=== PATIENT | male | born 1950 | race Caucasian/White ===

== ENCOUNTER 2016-06-30 12:04 | Inpatient (IN) | payer MEDICARE, BC ==
--- NOTE | 2016-06-30 12:42 | ED ---
General Adult HPI - General Chief complaint: Neuro Symptoms/Deficit Stated complaint: sepsis Time Seen by Provider: 06/30/16 12:11 Source: patient, EMS, RN notes reviewed Mode of arrival: EMS Limitations: altered mental status, physical limitation - History of Present Illness Initial comments: Patient is a pleasant 66-year-old male presenting to the emergency department for lethargy. Patient is arousable however drowsy and offers very little information. Patient reportedly had a recent admission for sepsis. Patient has no specific complaints at this time. - Related Data Home Medications Medication Instructions Recorded Confirmed ALPRAZolam [Xanax] 0.25 mg PO Q6H PRN 06/12/16 06/30/16 ARIPiprazole [Abilify] 30 mg PO HS@199906/12/16 06/30/16 Acetaminophen Tab [Tylenol] 1,000 mg PO Q4H PRN 06/12/16 06/30/16 Aspirin 81 mg PO HS 06/12/16 06/30/16 Atorvastatin [Lipitor] 10 mg PO HS@199906/12/16 06/30/16 Baclofen 10 mg PO TID@0500,1300,2100 06/12/16 06/30/16 Budesonide [Pulmicort] 0.5 mg INHALATION RT-BID 06/12/16 06/30/16 Enoxaparin [Lovenox] 40 mg SQ DAILY 06/12/16 06/30/16 Gabapentin 800 mg PO TID@0500,1300,2100 06/12/16 06/30/16 Glucagon Emergency Kit 1 mg IM ONCE PRN 06/12/16 06/30/16 Gluctose 15 Gel 40% 1 tube PO ONCE PRN 06/12/16 06/30/16 Insulin Aspart [NovoLOG] 8 unit SQ AC-TID 06/12/16 06/30/16 Insulin Detemir [Levemir] 36 unit SQ BID@0700,1900 06/12/16 06/30/16 Ipratropium-Albuterol Nebulize 3 ml INHALATION RT-BID 06/12/16 06/30/16 [Duoneb 0.5 mg-3 mg/3 ml Soln] Lisinopril [Zestril] 20 mg PO DAILY 06/12/16 06/30/16 Nystatin [Nystop] 1 applic TOPICAL BID 06/12/16 06/30/16 amLODIPine [Norvasc] 5 mg PO BID 06/12/16 06/30/16 buPROPion HCL [Wellbutrin SR] 100 mg PO DAILY 06/12/16 06/30/16 risperiDONE 4 mg PO HS@199906/12/16 06/30/16 Carvedilol [Coreg] 6.25 mg PO BID 06/30/16 06/30/16 HYDROcodone/APAP 5-325MG [[place] 1 tab PO Q6H PRN 06/30/16 06/30/16 5-325] Meropenem [Merrem] 1 gm IVPB TID@0500,1300,2100 06/30/16 06/30/16 Sennosides-Docusate Sodium 1 tab PO HS@199906/30/16 06/30/16 [Senokot-S] Allergies Allergy/AdvReac Type Severity Reaction Status Date / Time Penicillins Allergy Rash/Hives Verified 06/30/16 13:21 ziprasidone [From Geodon] AdvReac Unknown Verified 06/30/16 13:21 Review of Systems ROS Statement: Those systems with pertinent positive or pertinent negative responses have been documented in the HPI. ROS Other: All systems not noted in ROS Statement are negative. Limitations: ROS unobtainable due to patients medical condition Past Medical History Past Medical History: COPD, Diabetes Mellitus, Hypertension, Sleep Apnea/CPAP/ BIPAP Additional Past Medical History / Comment(s): acute and chronic respiratory failure, obesity, Paraplegia, generalized muscle weakness, IDC/urostomy, colostomy, no cpap required, History of Any Multi-Drug Resistant Organisms: MRSA Date of last positivie culture/infection: 2015 MDRO Source:: coccyx Past Surgical History: Back Surgery, Bowel Resection, Heart Catheterization, Tonsillectomy Additional Past Surgical History / Comment(s): Tracheostomy 2017, 6 back surgeries, PEG tube(not being used at this time), heart cath with stent-unsure of year Past Anesthesia/Blood Transfusion Reactions: No Reported Reaction Past Psychological History: Bipolar, Schizoaffective Disorder Smoking Status: Never smoker Past Alcohol Use History: None Reported Past Drug Use History: None Reported General Exam Limitations: altered mental status, physical limitation General appearance: lethargic, obese Head exam: Present: atraumatic Pupils: Present: miosis ENT exam: Present: normal oropharynx Neck exam: Present: normal inspection Respiratory exam: Present: normal lung sounds bilaterally Cardiovascular Exam: Present: regular rate, normal rhythm GI/Abdominal exam: Present: soft. Absent: tenderness Extremities exam: Present: pedal edema. Absent: calf tenderness Neurological exam: Present: altered (Drowsy. Difficulty following commands. Limited exam.) Expanded Patient oriented to: Present: person Psychiatric exam: Present: flat affect Skin exam: Present: other (Stage III/IV multiple sacral ulcers) Course Vital Signs 06/30/16 06/30/16 06/30/16 12:09 13:41 14:40 Temperature 99.3 F 98.5 F 97.8 F Pulse Rate 72 69 63 Respiratory 22 12 22 Rate Blood Pressure 112/57 126/60 107/53 O2 Sat by Pulse 95 94 L 94 L Oximetry 06/30/16 15:06 Temperature Pulse Rate 62 Respiratory 20 Rate Blood Pressure 114/56 O2 Sat by Pulse 95 Oximetry EKG Findings - EKG Comments: EKG Findings:: Normal sinus rhythm 69. OH 174. QRS 82. QT 338. QTC 362. Normal axis. Normal QRS. Normal ST-T. Medical Decision Making - Medical Decision Making Patient reevaluated and slightly improved. Etiology of altered mental status is not apparent at this time. ABG will be ordered. Case was discussed with Dr. Hagen, who will admit for Dr. Bowen. - Lab Data Result diagrams: 06/30/16 12:45 06/30/16 12:45 Lab Results 06/30/16 06/30/16 06/30/16 Range/Units 12:33 12:45 12:45 WBC 7.4 (3.8-10.6) k/uL RBC 3.35 L (4.30-5.90) m/uL Hgb 8.8 L (13.0-17.5) gm/dL Hct 30.3 L (39.0-53.0) % MCV 90.5 (80.0-100.0) fL MCH 26.3 (25.0-35.0) pg MCHC 29.0 L (31.0-37.0) g/dL RDW 18.0 H (11.5-15.5) % Plt Count 480 H (150-450) k/uL Neutrophils % 54 % Lymphocytes % 30 % Monocytes % 7 % Eosinophils % 5 % Basophils % 0 % Neutrophils # 4.0 (1.3-7.7) k/uL Lymphocytes # 2.3 (1.0-4.8) k/uL Monocytes # 0.5 (0-1.0) k/uL Eosinophils # 0.4 (0-0.7) k/uL Basophils # 0.0 (0-0.2) k/uL Hypochromasia Marked Poikilocytosis Moderate Anisocytosis Slight PT (9.0-12.0) sec INR (<1.1) APTT (22.0-30.0) sec Sodium (137-145) mmol/L Potassium (3.5-5.1) mmol/L Chloride (98-107) mmol/L Carbon Dioxide (22-30) mmol/L Anion Gap mmol/L BUN (9-20) mg/dL Creatinine (0.66-1.25) mg/dL Est GFR (MDRD) Af Amer (>60 ml/min/1.73 sqM) Est GFR (MDRD) Non-Af (>60 ml/min/1.73 sqM) Glucose (74-99) mg/dL POC Glucose (mg/dL) (75-99) mg/dL POC Glu Senior Cytotechnologist ID Plasma Lactic Acid Tl (0.7-2.0) mmol/L Calcium (8.4-10.2) mg/dL Total Bilirubin (0.2-1.3) mg/dL AST (17-59) U/L ALT (21-72) U/L Alkaline Phosphatase (38-126) U/L Total Creatine Kinase <20 L (55-170) U/L CK-MB (CK-2) 0.4 (0.0-2.4) ng/mL CK-MB (CK-2) Rel Index 0.0 Troponin I <0.012 (0.000-0.034) ng/mL Total Protein (6.3-8.2) g/dL Albumin (3.5-5.0) g/dL Urine Color Light Yellow Urine Appearance Cloudy (Clear) Urine pH 5.5 (5.0-8.0) Ur Specific [place] 1.005 (1.001-1.035) Urine Protein Trace H (Negative) Urine Glucose (UA) Negative (Negative) Urine Ketones Negative (Negative) Urine Blood Trace H (Negative) Urine Nitrite Negative (Negative) Urine Bilirubin Negative (Negative) Urine Urobilinogen <2.0 (<2.0) mg/dL Ur Leukocyte Esterase Negative (Negative) Urine RBC 1 (0-5) /hpf Urine WBC 2 (0-5) /hpf Influenza Type A RNA (Not Detectd) Influenza Type B (PCR) (Not Detectd) 06/30/16 06/30/16 06/30/16 Range/Units 12:45 12:45 12:55 WBC (3.8-10.6) k/uL RBC (4.30-5.90) m/uL Hgb (13.0-17.5) gm/dL Hct (39.0-53.0) % MCV (80.0-100.0) fL MCH (25.0-35.0) pg MCHC (31.0-37.0) g/dL RDW (11.5-15.5) % Plt Count (150-450) k/uL Neutrophils % % Lymphocytes % % Monocytes % % Eosinophils % % Basophils % % Neutrophils # (1.3-7.7) k/uL Lymphocytes # (1.0-4.8) k/uL Monocytes # (0-1.0) k/uL Eosinophils # (0-0.7) k/uL Basophils # (0-0.2) k/uL Hypochromasia Poikilocytosis Anisocytosis PT 11.8 (9.0-12.0) sec INR 1.2 (<1.1) APTT 27.1 (22.0-30.0) sec Sodium 133 L (137-145) mmol/L Potassium 5.2 H (3.5-5.1) mmol/L Chloride 96 L (98-107) mmol/L Carbon Dioxide 34 H (22-30) mmol/L Anion Gap 3 mmol/L BUN 13 (9-20) mg/dL Creatinine 0.45 L (0.66-1.25) mg/dL Est GFR (MDRD) Af Amer >60 (>60 ml/min/1.73 sqM) Est GFR (MDRD) Non-Af >60 (>60 ml/min/1.73 sqM) Glucose 87 (74-99) mg/dL POC Glucose (mg/dL) (75-99) mg/dL POC Glu Senior Cytotechnologist ID Plasma Lactic Acid Tl <0.5 L (0.7-2.0) mmol/L Calcium 9.8 (8.4-10.2) mg/dL Total Bilirubin 0.3 (0.2-1.3) mg/dL AST 13 L (17-59) U/L ALT 32 (21-72) U/L Alkaline Phosphatase 56 (38-126) U/L Total Creatine Kinase (55-170) U/L CK-MB (CK-2) (0.0-2.4) ng/mL CK-MB (CK-2) Rel Index Troponin I (0.000-0.034) ng/mL Total Protein 5.4 L (6.3-8.2) g/dL Albumin 2.6 L (3.5-5.0) g/dL Urine Color Urine Appearance (Clear) Urine pH (5.0-8.0) Ur Specific [place] (1.001-1.035) Urine Protein (Negative) Urine Glucose (UA) (Negative) Urine Ketones (Negative) Urine Blood (Negative) Urine Nitrite (Negative) Urine Bilirubin (Negative) Urine Urobilinogen (<2.0) mg/dL Ur Leukocyte Esterase (Negative) Urine RBC (0-5) /hpf Urine WBC (0-5) /hpf Influenza Type A RNA (Not Detectd) Influenza Type B (PCR) (Not Detectd) 06/30/16 06/30/16 Range/Units 12:55 13:02 WBC (3.8-10.6) k/uL RBC (4.30-5.90) m/uL Hgb (13.0-17.5) gm/dL Hct (39.0-53.0) % MCV (80.0-100.0) fL MCH (25.0-35.0) pg MCHC (31.0-37.0) g/dL RDW (11.5-15.5) % Plt Count (150-450) k/uL Neutrophils % % Lymphocytes % % Monocytes % % Eosinophils % % Basophils % % Neutrophils # (1.3-7.7) k/uL Lymphocytes # (1.0-4.8) k/uL Monocytes # (0-1.0) k/uL Eosinophils # (0-0.7) k/uL Basophils # (0-0.2) k/uL Hypochromasia Poikilocytosis Anisocytosis PT (9.0-12.0) sec INR (<1.1) APTT (22.0-30.0) sec Sodium (137-145) mmol/L Potassium (3.5-5.1) mmol/L Chloride (98-107) mmol/L Carbon Dioxide (22-30) mmol/L Anion Gap mmol/L BUN (9-20) mg/dL Creatinine (0.66-1.25) mg/dL Est GFR (MDRD) Af Amer (>60 ml/min/1.73 sqM) Est GFR (MDRD) Non-Af (>60 ml/min/1.73 sqM) Glucose (74-99) mg/dL POC Glucose (mg/dL) 95 (75-99) mg/dL POC Glu Senior Cytotechnologist ID [place], [place] Plasma Lactic Acid Tl (0.7-2.0) mmol/L Calcium (8.4-10.2) mg/dL Total Bilirubin (0.2-1.3) mg/dL AST (17-59) U/L ALT (21-72) U/L Alkaline Phosphatase (38-126) U/L Total Creatine Kinase (55-170) U/L CK-MB (CK-2) (0.0-2.4) ng/mL CK-MB (CK-2) Rel Index Troponin I (0.000-0.034) ng/mL Total Protein (6.3-8.2) g/dL Albumin (3.5-5.0) g/dL Urine Color Urine Appearance (Clear) Urine pH (5.0-8.0) Ur Specific [place] (1.001-1.035) Urine Protein (Negative) Urine Glucose (UA) (Negative) Urine Ketones (Negative) Urine Blood (Negative) Urine Nitrite (Negative) Urine Bilirubin (Negative) Urine Urobilinogen (<2.0) mg/dL Ur Leukocyte Esterase (Negative) Urine RBC (0-5) /hpf Urine WBC (0-5) /hpf Influenza Type A RNA Not Detected (Not Detectd) Influenza Type B (PCR) Not Detected (Not Detectd) - Radiology Data Radiology results: report reviewed (Computed tomography scan of the brain shows no acute process.), image reviewed (Chest x-ray shows possible atelectasis. X- ray of the sacrum shows suspicion of erosion. Nondiagnostic. X-ray of the pelvis shows chronic changes.) Disposition Clinical Impression: Altered mental status Disposition: ADMITTED IP TO THIS HOSP
[2016-06-30 12:58] LABS: Appearance,Urine Cloudy (Clear); Bilirubin,Urine Negative (Negative); Glucose,Urine (UA) Negative (Negative); Ketones,Urine Negative (Negative); Leukocyte Esterase,Urine Negative (Negative); Nitrite,Urine Negative (Negative); PH, Urine 5.5 (5.0-8.0); Particle Count 1053; Protein,Urine Trace (Negative); RBC,Urine 1 /hpf (0-5); Specific Gravity,Urine 1.005 (1.001-1.035); UA Billing (MACRO vs. MICRO) MICRO; Urobilinogen,Urine <2.0 mg/dL (<2.0); WBC,Urine 2 /hpf (0-5)
[2016-06-30 12:58] LABS: Anisocytosis Slight; Basophils % (A) 0 %; CH 26.8; CHCM 29.7; Eosinophils # (A) 0.4 k/uL (0-0.7); Eosinophils % (A) 5 %; HCT 30.3 % (39.0-53.0); HGB 8.8 gm/dL (13.0-17.5); Hypochromasia Marked; Luc # (Auto) 0.24; Luc % (Auto) 3; Lymphocytes # (A) 2.3 k/uL (1.0-4.8); Lymphocytes % (A) 30 %; MCH 26.3 pg (25.0-35.0); MCV 90.5 fL (80.0-100.0); Monocytes # (A) 0.5 k/uL (0-1.0); Monocytes % (A) 7 %; Neutrophils % (A) 54 %; Poikilocytosis Moderate; RBC 3.35 m/uL (4.30-5.90); WBC 7.4 k/uL (3.8-10.6); WBC (Perox) 7.65
[2016-06-30 13:03] LABS: Glucose,Whole Blood 95 mg/dL (75-99)
[2016-06-30 13:07] LABS: ALT 32 U/L (21-72); AST 13 U/L (17-59); Alkaline Phosphatase 56 U/L (38-126); Anion Gap 3 mmol/L; Blood Urea Nitrogen 13 mg/dL (9-20); Calcium 9.8 mg/dL (8.4-10.2); Carbon Dioxide 34 mmol/L (22-30); Chloride 96 mmol/L (98-107); Glucose 87 mg/dL (74-99); INR 1.2 (<1.1); Non-African American GFR(MDRD) >60 (>60 ml/min/1.73 sqM); Partial Thromboplastin Time 27.1 sec (22.0-30.0); Potassium 5.2 mmol/L (3.5-5.1); Prothrombin Time 11.8 sec (9.0-12.0); Sodium 133 mmol/L (137-145); Total Bilirubin 0.3 mg/dL (0.2-1.3); Total Protein 5.4 g/dL (6.3-8.2)
[2016-06-30 13:16] LABS: Creatine Kinase <20 U/L (55-170)
--- NOTE | 2016-06-30 13:24 | CT ---
EXAMINATION TYPE: CT brain wo con DATE OF EXAM: 06/30/2016 1:19 PM COMPARISON: NONE HISTORY: 66-year-old male with altered mental status, confusion, unresponsive, unable to obtain histo ry. TECHNIQUE: Examination was done in axial plane without intravenous contrast. Coronal and sagittal r econstructions performed. CT DLP: 1162.8 mGycm Automated exposure control for dose reduction was used. FINDINGS: There is no evidence of acute intracranial hemorrhage, acute ischemic changes, mass, mass-effect, or extra-axial fluid collection. There is no effacement of cerebral sulci or basal subarachnoid cister ns. There is no hydrocephalus. There is no midline shift. Carranza-white matter distinction is preserv ed. Moderate mucosal thickening ethmoid air cells and sphenoid sinuses and chronic appearing bony sinus w all thickening of the right maxillary sinus with trace mucosal thickening. Mastoid air cells are well pneumatized. Patient's gaze is divergent suggesting underlying strabismus. There is a 1.0 cm round l ow density nodule located deep to the skin surface along the right cheek. IMPRESSION: 1. No acute intracranial abnormality seen. 2. Moderate chronic paranasal sinus disease. 3. Correlate for possible 1 cm sebaceous cyst along the right cheek.
[2016-06-30 13:29] LABS: Creatine Kinase MB 0.4 ng/mL (0.0-2.4); Troponin I <0.012 ng/mL (0.000-0.034)
--- NOTE | 2016-06-30 14:40 | XR ---
EXAMINATION TYPE: XR pelvis AP view DATE OF EXAM: 06/30/2016 1:43 PM COMPARISON: NONE HISTORY: Chronic bedsores TECHNIQUE: AP pelvis FINDINGS: Fecal debris is within the rectum. Postsurgical changes are within the lower lumbar spine. Degenerative changes are at the left hip. Suspicious erosion of the pelvis is not identified. Note th at the sacrum is largely obscured in the AP projection. IMPRESSION: 1. Chronic changes.
--- NOTE | 2016-06-30 14:43 | XR ---
EXAMINATION TYPE: XR sacrum coccyx DATE OF EXAM: 06/30/2016 1:43 PM COMPARISON: NONE HISTORY: Osteomyelitis chronic bedsores on buttocks TECHNIQUE: 2 view sacrum and coccyx FINDINGS: Fecal debris overlies the lower sacrum on the AP projection. The lower sacrum is poorly vis ualized and osteomyelitis is not excluded. Lateral views nondiagnostic excluding the sacrum out of th e [id number]. IMPRESSION: 1. Essentially nondiagnostic sacrum and coccyx. There is a suspicion of the lower sacrum having eros ion. Consider CT for diagnostic exam.
--- NOTE | 2016-06-30 14:59 | XR ---
EXAMINATION TYPE: XR chest 1V portable DATE OF EXAM: 06/30/2016 2:54 PM COMPARISON: 06/12/2016 INDICATION: Acute mental status change, sepsis TECHNIQUE: Single frontal view of the chest is obtained. FINDINGS: The heart size is borderline in size. The pulmonary vasculature is normal. The lungs are clear. There is elevation of the lateral right diaphragm. Correlate for atelectasis IMPRESSION: 1. Possible atelectasis right lung base. Follow-up is recommended
[2016-06-30] MEDS ORDERED: NALOXONE 0.4 MG/ML 1 ML VIAL IV PRN (15:36)
[2016-06-30] MEDS: SODIUM CHLORIDE 0.9% 1,000 ML IV SCH (15:52)
[2016-06-30 16:46] LABS: ABG PCO2 75 mmHg (35-45); ABG PH 7.27 (7.35-7.45); ABG PO2 98 mmHg (83-108)
[2016-06-30 16:48] LABS: ABG Base Excess 6.3 mmol/L; ABG HCO3 33 mmol/L (21-25); ABG TCO2 35 mmol/L (19-24)
[2016-06-30] MEDS ORDERED: methylPREDNISolone SOD SUCCI 125 MG/2 ML VIAL IV STA (16:55)
[2016-06-30] MEDS ORDERED: IPRATROPIUM-ALBUTEROL 3 ML NEB INHALATION PRN (16:55)
[2016-06-30 19:52] LABS: Creatine Kinase <20 U/L (55-170)
[2016-06-30 20:05] LABS: Creatine Kinase MB 0.5 ng/mL (0.0-2.4); Troponin I <0.012 ng/mL (0.000-0.034)
[2016-06-30] MEDS ORDERED: VANCOMYCIN 1,500 MG in SODIUM CHLORIDE 0.9% 250 ML IVPB SCH (20:15)
[2016-06-30] MEDS ORDERED: HYDROcodone/APAP 5-325MG 1 EACH TAB PO PRN (20:15)
[2016-06-30] MEDS ORDERED: IV VANCOMYCIN PER PHARMACY 1 EACH MISC MISCELLANE PRN (20:15)
[2016-06-30] MEDS ORDERED: ACETAMINOPHEN TAB 500 MG TAB PO PRN (20:15)
[2016-06-30] MEDS: IPRATROPIUM-ALBUTEROL 3 ML NEB INHALATION SCH (20:23)
[2016-06-30 20:55] LABS: Glucose,Whole Blood 59 mg/dL (75-99)
[2016-06-30] MEDS ORDERED: DEXTROSE 50%-WATER 50 ML SYRINGE IVP ONE (20:56)
[2016-06-30 21:15] LABS: Anion Gap 2 mmol/L; Blood Urea Nitrogen 12 mg/dL (9-20); Calcium 9.8 mg/dL (8.4-10.2); Carbon Dioxide 37 mmol/L (22-30); Chloride 96 mmol/L (98-107); Glucose 64 mg/dL (74-99); Magnesium 1.8 mg/dL (1.6-2.3); Non-African American GFR(MDRD) >60 (>60 ml/min/1.73 sqM); Phosphorous 3.5 mg/dL (2.5-4.5); Potassium 5.4 mmol/L (3.5-5.1); Sodium 135 mmol/L (137-145)
[2016-06-30 21:15] LABS: Glucose,Whole Blood 94 mg/dL (75-99)
[2016-06-30] MEDS: INSULIN LISPRO (humaLOG) 300 UNIT/3 ML VIAL SQ SCH (21:19)
[2016-06-30] MEDS: VANCOMYCIN 2,000 MG in SODIUM CHLORIDE 0.9% 500 ML IVPB SCH (21:27)
[2016-06-30 21:37] LABS: ABG Base Excess 5.7 mmol/L; ABG HCO3 31 mmol/L (21-25); ABG Oxygen Saturation 96.8 % (94-97); ABG PCO2 58 mmHg (35-45); ABG PH 7.35 (7.35-7.45); ABG PO2 96 mmHg (83-108); ABG TCO2 33 mmol/L (19-24)
[2016-06-30] MEDS: BACLOFEN 10 MG TAB PO SCH (22:54)
[2016-06-30] MEDS: ASPIRIN 81 MG CHEW PO SCH (22:54)
[2016-06-30] MEDS: CARVEDILOL 6.25 MG TAB PO SCH (22:54)
[2016-06-30] MEDS: amLODIPine 5 MG TAB PO SCH (22:54)
[2016-06-30] MEDS: GABAPENTIN 400 MG CAP PO SCH (22:54)
[2016-06-30 23:08] LABS: Anisocytosis Slight; Basophils % (A) 0 %; CHCM 29.2; Eosinophils # (A) 0.1 k/uL (0-0.7); Eosinophils % (A) 2 %; HCT 29.7 % (39.0-53.0); HDW 4.43; Hypochromasia Marked; Luc # (Auto) 0.07; Luc % (Auto) 1; Lymphocytes # (A) 1.2 k/uL (1.0-4.8); Lymphocytes % (A) 18 %; MCHC 30.3 g/dL (31.0-37.0); MCV 89.2 fL (80.0-100.0); Mean Platelet Volume 8.1; Monocytes # (A) 0.2 k/uL (0-1.0); Monocytes % (A) 3 %; Neutrophils # (A) 5.1 k/uL (1.3-7.7); Neutrophils % (A) 76 %; Poikilocytosis Moderate; RBC 3.33 m/uL (4.30-5.90); RDW 17.2 % (11.5-15.5); WBC 6.7 k/uL (3.8-10.6); WBC (Perox) 6.84
[2016-06-30] MEDS: methylPREDNISolone SOD SUCCI 125 MG/2 ML VIAL IV SCH (23:10)
[2016-06-30] MEDS: NYSTATIN 100,000 UNIT/GM POWD 15 GM TOPICAL SCH (23:10)
[2016-07-01] LABS: Creatine Kinase <20 U/L (55-170)
[2016-07-01 00:13] LABS: Creatine Kinase MB 0.5 ng/mL (0.0-2.4); Troponin I <0.012 ng/mL (0.000-0.034)
[2016-07-01] MEDS: MORPHINE SULFATE 2 MG/ML SYRINGE IVP PRN ×5 (02:47→13:16)
[2016-07-01] MEDS: GABAPENTIN 400 MG CAP PO SCH ×3 (05:00→20:53)
[2016-07-01] MEDS: BACLOFEN 10 MG TAB PO SCH ×3 (05:00→20:53)
[2016-07-01] MEDS: methylPREDNISolone SOD SUCCI 125 MG/2 ML VIAL IV SCH ×2 (05:00→12:19)
[2016-07-01] MEDS: VANCOMYCIN 2,000 MG in SODIUM CHLORIDE 0.9% 500 ML IVPB SCH ×3 (05:01→20:58)
[2016-07-01 06:23] LABS: Anisocytosis Slight; Basophils % (A) 0 %; CH 26.3; CHCM 29.7; Eosinophils % (A) 0 %; HCT 30.6 % (39.0-53.0); HDW 4.47; HGB 9.1 gm/dL (13.0-17.5); Hypochromasia Marked; Luc # (Auto) 0.05; Luc % (Auto) 1; Lymphocytes # (A) 1.1 k/uL (1.0-4.8); Lymphocytes % (A) 17 %; MCH 26.5 pg (25.0-35.0); MCHC 29.9 g/dL (31.0-37.0); MCV 88.8 fL (80.0-100.0); Mean Platelet Volume 7.6; Monocytes # (A) 0.1 k/uL (0-1.0); Monocytes % (A) 2 %; Neutrophils % (A) 80 %; Poikilocytosis Moderate; RBC 3.45 m/uL (4.30-5.90); RDW 17.3 % (11.5-15.5); WBC 6.3 k/uL (3.8-10.6); WBC (Perox) 6.58
[2016-07-01 06:29] LABS: Glucose,Whole Blood 137 mg/dL (75-99)
[2016-07-01 06:29] LABS: Anion Gap 6 mmol/L; Blood Urea Nitrogen 13 mg/dL (9-20); Carbon Dioxide 32 mmol/L (22-30); Chloride 95 mmol/L (98-107); Glucose 133 mg/dL (74-99); Non-African American GFR(MDRD) >60 (>60 ml/min/1.73 sqM); Potassium 5.7 mmol/L (3.5-5.1); Sodium 133 mmol/L (137-145)
[2016-07-01] MEDS: INSULIN LISPRO (humaLOG) 300 UNIT/3 ML VIAL SQ SCH ×4 (06:40→20:54)
[2016-07-01] MEDS: CARVEDILOL 6.25 MG TAB PO SCH ×2 (06:42→16:10)
[2016-07-01] MEDS: buPROPion SR 100 MG TABLET.ER PO SCH (06:42)
[2016-07-01] MEDS ORDERED: PIPERACILLIN-TAZOBACTAM 3.375 GM in DEXTROSE/WATER 1 50ML.BAG IVPB SCH (08:00)
--- NOTE | 2016-07-01 08:41 | HP ---
DATE OF ADMISSION: 06/30/2016 CHIEF COMPLAINT: Change in mental status. HISTORY OF PRESENT ILLNESS: This 66-year-old gentleman with a past medical history of multiple medical problems including COPD, history of diabetes, sleep apnea, history of acute on chronic respiratory failure, history of paraplegia, history of colostomy, history of suprapubic catheter being followed by Dr. Bowen in [facility] was recently admitted to [facility] with complaints of sepsis, which is thought to be secondary to large extensive decubitus stage V, the patient had debridement and cultures showed polymicrobial organisms. The patient was sent to the [facility] with IV antibiotics 2 grams IV q.8 and ceftazidime Fortaz 2 grams IV q.8. The patient is being closely monitored. Current in the skilled nursing the patient had become lethargic, less likely to arouse which is ongoing for a couple of days and because of increasing difficulties, patient came to [facility] and admitted for further evaluation and treatment. The patient was extensively evaluated on admission. CAT scan of the brain was done, which showed no acute abnormality, moderate chronic paranasal disease. Otherwise, a pelvic x-ray was also done, which showed chronic changes and a chest x-ray was also done showed possible right lower lobe pneumonia versus atelectasis and the patient admitted for further evaluation and treatment. The patient also had features of acute respiratory failure on admission. Vital signs showed pulse 72, blood pressure 112/57, respirations 22 and because of respiratory failure, the patient was also started on BiPAP also. The patient unable to give coherent history, most of the history is taken from my discussion with staff and review of the chart at this time. PAST MEDICAL HISTORY: History of COPD, diabetes mellitus, hypertension, sleep apnea, acute on chronic respiratory failure, obesity, paraplegia, MRSA. Medications prior to admission include home medications are: 1. Risperdal 4 mg q.h.s. 2. Wellbutrin SR 100 mg p.o. daily. 3. Norvasc 5 mg p.o. b.i.d. 4. Senokot-S 1 tablet p.o. q.h.s. 6. Merrem 1 gm IV t.i.d. 7. Zestril 20 mg p.o. daily. 8. Duoneb 3 mL b.i.d. 9. Levemir 36 b.i.d. 10. Novolog 8 units subcu a.c. t.i.d. 11. [place] 5 mg 6 p.r.n. 13. Gabapentin 800 mg p.o. t.i.d. 14. Lovenox 40 mg subcutaneous daily. 15. Coreg 6.5 mg b.i.d. 16. Pulmicort 0.5 mg b.i.d. 17. Baclofen 10 mg t.i.d. 18. Lipitor 10 mg q.h.s. 19. Aspirin 81 mg 20. Tylenol 1000 milligrams q.4 p.r.n. 21. Abilify 30 mg q.h.s. 22. Xanax 0.5 q.6 p.r.n. ALLERGIES: PENICILLIN AND GEODON. FAMILY HISTORY, SOCIAL HISTORY AND REVIEW OF SYSTEMS Could not be obtained because the patient is sedated on BiPAP. Per chart no history of smoking. PHYSICAL EXAMINATION: Pulse is 63, sensorium as described above, blood pressure is 120/50, respirations 20, temperature 97.8, pulse ox 98% on BiPAP at settings are noted. HEENT: Conjunctivae normal. Oral mucosa moist. NECK: Obese. CARDIOVASCULAR SYSTEM: No murmur. No thrills. RESPIRATORY: Breath sounds diminished at the bases. Bilateral scattered rhonchi and crackles. Expiratory wheezing also present. ABDOMEN: Soft, obese, nontender. No mass palpable. Legs: No edema. No swelling. Nervous system: Higher functions as mentioned. Moves all 4 limbs. No focal motor or sensory deficits. SKIN: No ulcer, rash or bleeding. LABORATORY DATA: WBC 7.5, hemoglobin is 8.8 and platelets of 480. ABG showed pH of 7.27, PCO2 of 75, sodium 133, potassium 5.2. Albumin is 2.6. ASSESSMENT: 1. Acute hypoxic hypercarbic respiratory failure, possibly multifactorial secondary to obstructive sleep apnea, lung disease and metabolic encephalopathy with chronic obstructive pulmonary disease, acute exacerbation 2. Metabolic encephalopathy, possible sepsis. 3. Rule out right lower lobe pneumonia, possibly negative gram-negative. 4. Extensive sacral decubitus ulcer with possible osteomyelitis, stage IV. 5. Anemia, normocytic anemia of chronic disease. 6. Increased platelets. 7. Super morbid obesity with BMI 46.8. 8. Hyponatremia. 9. Hyperkalemia. 10. Gait dysfunction. 11. Hypoalbuminemia with mild to moderate protein calorie malnutrition. 12. Chronic obstructive pulmonary disease. 13. Diabetes mellitus type 2. 14. Hypertension. 15. Sleep apnea. 16. History of chronic respiratory failure on home O2 nasal cannula. 17. History of paraplegia. 18. History of colostomy. 19. History of urostomy. 20. History of Methicillin-resistant Staph aureus. 21. History of cardiac catheterization. 22. History of degenerative joint disease. 23. History of bipolar schizoaffective disorder. 24. FULL CODE. RECOMMENDATIONS AND DISCUSSION: This 66-year-old gentleman who presented with multiple complex medical issues, we will monitor the patient closely. Continue the current medications. Continue symptomatic treatment. We will initiate intensive bronchodilator treatment also. IV steroids and empiric antibiotics also will be given. Dr. Jaffe consulted and infectious disease will be consulted. Overall prognosis is extremely guarded because of multiple complex medical issues. Further recommendations to follow. She orders for further details. DVT prophylaxis. A copy of dictation to Dr. Bowen. [facility]
[2016-07-01] MEDS: amLODIPine 5 MG TAB PO SCH ×2 (09:50→20:52)
[2016-07-01] MEDS: ENOXAPARIN 40 MG/0.4 ML SYRINGE SQ SCH (09:50)
[2016-07-01] MEDS: IPRATROPIUM-ALBUTEROL 3 ML NEB INHALATION SCH ×4 (09:51→20:20)
[2016-07-01] MEDS: FORMOTEROL FUMARATE 20 MCG/2 ML NEBU INHALATION SCH ×2 (09:51→20:20)
[2016-07-01] MEDS: BUDESONIDE 1 MG/2 ML NEBU INHALATION SCH ×2 (09:51→20:19)
[2016-07-01] MEDS: LISINOPRIL 20 MG TAB PO SCH (09:51)
[2016-07-01] MEDS: NYSTATIN 100,000 UNIT/GM POWD 15 GM TOPICAL SCH ×2 (09:51→20:54)
[2016-07-01] MEDS: INSULIN DETEMIR 100 UNIT/ML 10 ML VIAL SQ SCH ×2 (09:58→19:37)
[2016-07-01 10:16] LABS: Hemoglobin A1C 6.1 % (4.2-6.1)
[2016-07-01 11:25] LABS: Glucose,Whole Blood 207 mg/dL (75-99)
[2016-07-01] MEDS ORDERED: HYDROmorphone 1 MG/ML 1 ML SYRINGE IVP PRN (13:48)
[2016-07-01] MEDS: ALPRAZolam 0.25 MG TAB PO PRN (13:55)
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
[2016-07-01] MEDS: SODIUM CHLORIDE 0.9% 1,000 ML IV SCH (16:09)
[2016-07-01] MEDS: COLLAGENASE 250 UNIT/GM OINTMENT 30 GM TUBE TOPICAL SCH (16:10)
[2016-07-01 16:45] LABS: Glucose,Whole Blood 324 mg/dL (75-99)
[2016-07-01] MEDS: methylPREDNISolone SOD SUCCI 40 MG/ML 1 ML VIAL IV SCH (17:23)
[2016-07-01] MEDS: HYDROmorphone 1 MG/ML 1 ML SYRINGE IVP PRN ×2 (18:48→22:02)
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
[2016-07-01] MEDS: ARIPiprazole 10 MG TAB PO SCH (20:50)
[2016-07-01] MEDS: risperiDONE 2 MG TAB PO SCH (20:51)
[2016-07-01] MEDS: ATORVASTATIN 10 MG TAB PO SCH (20:51)
[2016-07-01] MEDS: ASPIRIN 81 MG CHEW PO SCH (20:52)
[2016-07-01] MEDS: SENNOSIDES-DOCUSATE SODIUM 1 EACH TAB PO SCH (20:58)
[2016-07-01 21:07] LABS: Glucose,Whole Blood 341 mg/dL (75-99)
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
[2016-07-02] MEDS: methylPREDNISolone SOD SUCCI 40 MG/ML 1 ML VIAL IV SCH ×4 (02:32→23:46)
[2016-07-02] MEDS: HYDROmorphone 1 MG/ML 1 ML SYRINGE IVP PRN ×4 (03:27→20:59)
[2016-07-02] MEDS ORDERED: VANCOMYCIN TROUGH DUE 1 EACH MISC MISCELLANE ONE (04:00)
[2016-07-02 05:08] LABS: Anisocytosis Slight; Basophils % (A) 0 %; CH 26.3; CHCM 28.9; Eosinophils % (A) 0 %; HDW 4.03; HGB 9.1 gm/dL (13.0-17.5); Hypochromasia Marked; Luc # (Auto) 0.08; Luc % (Auto) 1; Lymphocytes # (A) 1.1 k/uL (1.0-4.8); Lymphocytes % (A) 14 %; MCH 25.7 pg (25.0-35.0); MCHC 28.3 g/dL (31.0-37.0); MCV 90.9 fL (80.0-100.0); Monocytes # (A) 0.4 k/uL (0-1.0); Monocytes % (A) 5 %; Neutrophils # (A) 6.1 k/uL (1.3-7.7); Neutrophils % (A) 80 %; Poikilocytosis Moderate; RBC 3.52 m/uL (4.30-5.90); RDW 17.4 % (11.5-15.5); WBC 7.6 k/uL (3.8-10.6); WBC (Perox) 7.49
[2016-07-02] MEDS: VANCOMYCIN 2,000 MG in SODIUM CHLORIDE 0.9% 500 ML IVPB SCH ×2 (05:09→20:47)
[2016-07-02] MEDS: GABAPENTIN 400 MG CAP PO SCH ×3 (05:10→20:42)
[2016-07-02] MEDS: BACLOFEN 10 MG TAB PO SCH ×3 (05:10→20:42)
[2016-07-02 05:15] LABS: Anion Gap 4 mmol/L; Blood Urea Nitrogen 13 mg/dL (9-20); Calcium 10.1 mg/dL (8.4-10.2); Carbon Dioxide 34 mmol/L (22-30); Chloride 94 mmol/L (98-107); Glucose 262 mg/dL (74-99); Non-African American GFR(MDRD) >60 (>60 ml/min/1.73 sqM); Potassium 5.2 mmol/L (3.5-5.1); Sodium 132 mmol/L (137-145)
[2016-07-02] MEDS: INSULIN DETEMIR 100 UNIT/ML 10 ML VIAL SQ SCH ×2 (06:38→18:24)
[2016-07-02] MEDS: CARVEDILOL 6.25 MG TAB PO SCH ×2 (06:39→17:01)
[2016-07-02] MEDS: INSULIN LISPRO (humaLOG) 300 UNIT/3 ML VIAL SQ SCH ×4 (06:39→20:48)
[2016-07-02 06:41] LABS: Glucose,Whole Blood 278 mg/dL (75-99)
--- NOTE | 2016-07-02 07:16 | PN ---
DATE OF SERVICE: 07/01/2016 This 66-year-old gentleman who was admitted with change in mental status was thought to have hypoxic respiratory failure which is multifactorial in origin including possible right lower lobe pneumonia also. The patient was on BiPAP last night. Currently the patient is much more alert and the patient is being closely monitored at this time. Pulmonary, Dr. Jaffe, is following the patient closely. The patient also had history of recent sepsis from recent decubitus ulcer stage IV also. REVIEW OF SYSTEMS: CARDIOVASCULAR: No angina. RESPIRATORY: As mentioned earlier. GI: As mentioned earlier. : No dysuria. NERVOUS SYSTEM: No numbness or weakness. Current medications are reviewed and include: 1. Tylenol 1000 mg q.4 p.r.n. 2. DuoNeb q.i.d. and p.r.n. 3. Xanax 0.5 q.6. 4. Norvasc 5 mg p.o. b.i.d. 5. Abilify 30 mg q.h.s. 6. Aspirin 81 mg. 7. Lipitor 10 mg. 8. Lioresal 10 mg daily. 9. Pulmicort 1 mg b.i.d. 10. Wellbutrin 100 mg p.o. daily. 11. Coreg 6.25 mg b.i.d. 12. Ceftin 2 grams IV q.8 13. Santyl one application topically daily. 14. Lovenox. 15. Neurontin. 16. Dilaudid. 17. Levemir. 18. Zestril. 19. Solu-Medrol. 20. Narcan. 21. Mycostatin. 22. P.r.n. medications. PHYSICAL EXAMINATION: The patient is alert and oriented x3. Pulse 82, blood pressure is 140/76, respirations 21, temperature 98.3, pulse ox 90% on 5-L. HEENT: Conjunctivae normal. Oral mucosa moist. NECK: No jugular venous distention. No carotid bruit. No lymph node enlargement. CARDIOVASCULAR: S1 and S2, muffled. No S3, no S4. RESPIRATORY: Breath sounds diminished at the bases. Bilateral scattered rhonchi and crackles. Expiratory wheezing also present. ABDOMEN: Soft, obese, nontender. No mass palpable. LEGS: Minimal edema. NERVOUS SYSTEM: Higher function as mentioned. Moves all four limbs. No focal motor deficits. LYMPHATIC: No lymphadenopathy in the neck, axillae or groin. SKIN: No ulcer, rash or bleeding. LABS: WBC 6.3, hemoglobin 9, sodium 133, potassium 5.7. ASSESSMENT: 1. Acute hypoxic hypercarbic respiratory failure, possibly multifactorial secondary to obstructive sleep apnea, restrictive lung disease and as well as acute metabolic encephalopathy with chronic obstructive pulmonary disease, acute exacerbation. 2. Metabolic encephalopathy, acute on chronic possibly from sepsis. 3. Possible right lower lobe pneumonia, possibly gram-negative. 4. Extensive sacral decubitus ulcer with possible osteomyelitis stage IV. 5. Anemia, normocytic anemia of chronic disease. 6. Increased platelets. 7. Super morbid obesity with a BMI of 46.8. 8. Hyponatremia. 9. Hyperkalemia. 10. Gait dysfunction. 11. Hypoalbuminemia with mild to moderate protein calorie malnutrition. 12. Chronic obstructive pulmonary disease. 13. Diabetes mellitus type 2. 14. Hypertension. 15. Obstructive sleep apnea. 16. History of chronic respiratory failure on home O2 nasal cannula. 17. History of paraplegia. 18. History of colostomy. 19. History of urostomy 20. History of methicillin-resistant Staphylococcus aureus. 21. History of cardiac catheterization. 22. History of degenerative joint disease. 23. History of bipolar, schizoaffective disorder. 24. FULL CODE. RECOMMENDATIONS AND DISCUSSION: I recommend to continue the current medications, continue monitoring and symptomatic treatment. Otherwise at this time I would recommend to follow the patient closely. Continue the antibiotics, continue with bronchodilators. Continue with BiPAP at night and follow closely with pulmonary. Guarded prognosis. Further recommendations to follow.
[2016-07-02] MEDS: COLLAGENASE 250 UNIT/GM OINTMENT 30 GM TUBE TOPICAL SCH (07:57)
[2016-07-02] MEDS: LISINOPRIL 20 MG TAB PO SCH (07:57)
[2016-07-02] MEDS: ENOXAPARIN 40 MG/0.4 ML SYRINGE SQ SCH (07:57)
[2016-07-02] MEDS: buPROPion SR 100 MG TABLET.ER PO SCH (07:57)
[2016-07-02] MEDS: amLODIPine 5 MG TAB PO SCH ×2 (07:57→20:41)
[2016-07-02] MEDS: NYSTATIN 100,000 UNIT/GM POWD 15 GM TOPICAL SCH ×2 (07:58→20:43)
[2016-07-02] MEDS: FORMOTEROL FUMARATE 20 MCG/2 ML NEBU INHALATION SCH ×2 (09:33→21:59)
[2016-07-02] MEDS: IPRATROPIUM-ALBUTEROL 3 ML NEB INHALATION SCH ×4 (09:33→21:59)
[2016-07-02] MEDS: BUDESONIDE 1 MG/2 ML NEBU INHALATION SCH ×2 (09:33→21:59)
[2016-07-02 11:46] LABS: Glucose,Whole Blood 296 mg/dL (75-99)
[2016-07-02] MEDS: SODIUM CHLORIDE 0.9% 1,000 ML IV SCH (15:58)
[2016-07-02 16:36] LABS: Glucose,Whole Blood 328 mg/dL (75-99)
[2016-07-02 18:09] LABS: Glucose,Whole Blood 331 mg/dL (75-99)
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
[2016-07-02] MEDS: ARIPiprazole 10 MG TAB PO SCH (20:40)
[2016-07-02] MEDS: risperiDONE 2 MG TAB PO SCH (20:41)
[2016-07-02] MEDS: ATORVASTATIN 10 MG TAB PO SCH (20:41)
[2016-07-02] MEDS: ASPIRIN 81 MG CHEW PO SCH (20:42)
[2016-07-02] MEDS: SENNOSIDES-DOCUSATE SODIUM 1 EACH TAB PO SCH (20:47)
[2016-07-02 21:06] LABS: Glucose,Whole Blood 350 mg/dL (75-99)
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
[2016-07-03] MEDS: HYDROmorphone 1 MG/ML 1 ML SYRINGE IVP PRN ×5 (00:10→23:03)
[2016-07-03] MEDS: GABAPENTIN 400 MG CAP PO SCH ×3 (05:00→21:37)
[2016-07-03] MEDS: BACLOFEN 10 MG TAB PO SCH ×3 (05:00→21:37)
[2016-07-03 05:53] LABS: Glucose,Whole Blood 254 mg/dL (75-99)
[2016-07-03] MEDS: INSULIN DETEMIR 100 UNIT/ML 10 ML VIAL SQ SCH ×2 (06:25→18:52)
[2016-07-03] MEDS: INSULIN LISPRO (humaLOG) 300 UNIT/3 ML VIAL SQ SCH ×4 (06:26→21:38)
[2016-07-03] MEDS: CARVEDILOL 6.25 MG TAB PO SCH ×2 (06:26→17:28)
[2016-07-03 07:06] LABS: Anisocytosis Slight; Basophils % (A) 0 %; CH 26.1; CHCM 28.6; Eosinophils % (A) 0 %; HCT 31.6 % (39.0-53.0); HDW 3.97; HGB 9.1 gm/dL (13.0-17.5); Hypochromasia Marked; Luc # (Auto) 0.06; Luc % (Auto) 1; Lymphocytes # (A) 0.9 k/uL (1.0-4.8); Lymphocytes % (A) 13 %; MCH 26.2 pg (25.0-35.0); MCHC 28.7 g/dL (31.0-37.0); MCV 91.4 fL (80.0-100.0); Mean Platelet Volume 6.8; Monocytes # (A) 0.3 k/uL (0-1.0); Monocytes % (A) 4 %; Neutrophils # (A) 5.7 k/uL (1.3-7.7); Neutrophils % (A) 82 %; Poikilocytosis Slight; RBC 3.45 m/uL (4.30-5.90); RDW 17.2 % (11.5-15.5); WBC 6.9 k/uL (3.8-10.6); WBC (Perox) 7.72
[2016-07-03 07:27] LABS: Anion Gap 6 mmol/L; Blood Urea Nitrogen 18 mg/dL (9-20); Calcium 10.1 mg/dL (8.4-10.2); Carbon Dioxide 34 mmol/L (22-30); Chloride 95 mmol/L (98-107); Glucose 248 mg/dL (74-99); Non-African American GFR(MDRD) >60 (>60 ml/min/1.73 sqM); Potassium 5.2 mmol/L (3.5-5.1); Sodium 135 mmol/L (137-145)
[2016-07-03] MEDS: buPROPion SR 100 MG TABLET.ER PO SCH (07:54)
[2016-07-03] MEDS: NYSTATIN 100,000 UNIT/GM POWD 15 GM TOPICAL SCH ×2 (07:54→21:38)
[2016-07-03] MEDS: amLODIPine 5 MG TAB PO SCH ×2 (07:54→21:37)
[2016-07-03] MEDS: LISINOPRIL 20 MG TAB PO SCH (07:54)
[2016-07-03] MEDS: methylPREDNISolone SOD SUCCI 40 MG/ML 1 ML VIAL IV SCH ×3 (07:54→23:25)
[2016-07-03] MEDS: ENOXAPARIN 40 MG/0.4 ML SYRINGE SQ SCH (07:54)
[2016-07-03] MEDS: COLLAGENASE 250 UNIT/GM OINTMENT 30 GM TUBE TOPICAL SCH (07:54)
[2016-07-03] MEDS: FORMOTEROL FUMARATE 20 MCG/2 ML NEBU INHALATION SCH ×2 (08:54→19:43)
[2016-07-03] MEDS: IPRATROPIUM-ALBUTEROL 3 ML NEB INHALATION SCH ×4 (08:54→19:43)
[2016-07-03] MEDS: BUDESONIDE 1 MG/2 ML NEBU INHALATION SCH ×2 (08:54→19:43)
[2016-07-03] MEDS: VANCOMYCIN 2,000 MG in SODIUM CHLORIDE 0.9% 500 ML IVPB SCH (09:24)
--- NOTE | 2016-07-03 11:09 | PN ---
DATE OF SERVICE: 07/02/2016 This 66-year-old gentleman who was admitted with change in mental status and as well as acute hypoxic respiratory failure also was thought to be multifactorial etiology. The patient is currently feeling much better, much more alert and conscious. The patient is supposed to do BiPAP at night. The patient also suspected to have sepsis from either wound etiology or pneumonia etiology. Multiple consultants are following the patient closely. The cultures are showing Pseudomonas aeruginosa and VRE also. PAST MEDICAL HISTORY: Reviewed. REVIEW OF SYSTEMS: CARDIOVASCULAR: No angina or palpitations. RESPIRATORY: As mentioned. GI: As mentioned. : No dysuria or hematuria. Current medications are reviewed and include: 1. Tylenol 1000 every 4. 2. Ativan q.i.d. and p.r.n. 3. Xanax 0.5 every 6 hours. 4. Norvasc 5 mg p.o. b.i.d. 5. Ability 30 mg at bedtime. 6. Aspirin 81 mg. 7. Lipitor 10 mg. 8. Lioresal 10 mg. 9. Pulmicort 1 mg b.i.d. 10. Wellbutrin. 12. Lovenox. 13. Levemir. 14. Humalog. 15. Solu-Medrol. 16. Narcan. 17. Risperdal. PHYSICAL EXAMINATION: GENERAL: The patient is alert, oriented x3. VITAL SIGNS: Pulse 68, blood pressure 140/64, respirations 18, temperature 97.2, pulse ox 94% on 4 liters. HEENT: Conjunctivae normal. NECK: No JVD. CARDIOVASCULAR: S1 and S2 muffled. LUNGS: Breath sounds diminished at the bases. Bilateral scattered rhonchi and crackles. ABDOMEN: Soft, nontender. EXTREMITIES: No edema. No swelling. NERVOUS SYSTEM: No focal deficits. LABS: WBC 7.6, hemoglobin 9.1, sodium 132, potassium 5.2, glucose 262. ASSESSMENT: 1. Acute hypoxic hypercarbic respiratory failure, possibly multifactorial secondary to obstructive sleep apnea, reactive lung disease as well as acute metabolic encephalopathy with chronic obstructive pulmonary disease acute exacerbation as well as possible sepsis. 2. Change in mental status, metabolic encephalopathy, multifactorial, acute on chronic, possibly from sepsis. 3. Possible right lower lobe pneumonia, possibly gram-negative with sepsis. 4. Pseudomonas aeruginosa as well as vancomycin-resistant enterococcus from the wound cultures with possible sepsis. 5. Extensive sacral decubitus ulcer with possible osteomyelitis, stage IV. 6. Anemia, normocytic anemia of chronic disease. Increased platelets. 7. Super morbid obesity with BMI 46.8. 8. Hyponatremia. 9. Hyperkalemia. 10. Gait dysfunction. 11. Hypoalbuminemia with mild to moderate protein calorie malnutrition. 12. History of chronic obstructive pulmonary disease. 13. Diabetes type 2. 14. Hypertension. 15. Obstructive sleep apnea. 16. Chronic respiratory failure on home O2 nasal cannula. 17. History of paraplegia. 18. History of colostomy. 19. History of urostomy. 20. History of methicillin-resistant Staphylococcus aureus. 21. History of cardiac catheterization. 22. History of degenerative joint disease. 23. History of bipolar disorder and schizophrenia disorder. 24. FULL CODE. RECOMMENDATIONS: Recommend to continue current medications, continue with monitoring and symptomatic treatment. Otherwise at this time I would recommend broad-spectrum IV antibiotics. Infectious disease has been consulted. Dr. Jaffe's input is appreciated. Prognosis guarded because of multiple complex medical issues. Further recommendations to follow. MTDD
[2016-07-03 11:52] LABS: Glucose,Whole Blood 312 mg/dL (75-99)
[2016-07-03] MEDS: DAPTOmycin 500 MG in SODIUM CHLORIDE 0.9% 50 ML IV SCH (12:29)
[2016-07-03] MEDS ORDERED: LEVOFLOXACIN 750MG-D5W PMX 750 MG in DEXTROSE/WATER 1 150ML.BAG IVPB SCH (13:00)
[2016-07-03] MEDS: SODIUM CHLORIDE 0.9% 1,000 ML IV SCH (13:52)
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
[2016-07-03 14:46] LABS: C Reactive Protein 14.8 mg/L (<10.0)
[2016-07-03 17:06] LABS: Glucose,Whole Blood 276 mg/dL (75-99)
[2016-07-03 20:58] LABS: Glucose,Whole Blood 316 mg/dL (75-99)
[2016-07-03] MEDS: ARIPiprazole 10 MG TAB PO SCH (21:36)
[2016-07-03] MEDS: risperiDONE 2 MG TAB PO SCH (21:36)
[2016-07-03] MEDS: ASPIRIN 81 MG CHEW PO SCH (21:37)
[2016-07-03] MEDS: SENNOSIDES-DOCUSATE SODIUM 1 EACH TAB PO SCH (21:43)
[2016-07-04] MEDS: HYDROmorphone 1 MG/ML 1 ML SYRINGE IVP PRN ×6 (02:10→21:10)
[2016-07-04] MEDS: GABAPENTIN 400 MG CAP PO SCH ×3 (05:13→21:09)
[2016-07-04] MEDS: BACLOFEN 10 MG TAB PO SCH ×3 (05:13→21:10)
--- NOTE | 2016-07-04 05:24 | PN ---
DATE OF SERVICE: 07/03/2016 This 66-year-old gentleman who was admitted with acute hypoxic hypercarbic respiratory failure, also had some change in mental status. Also, the patient also had pneumonia, possibly gram negative. The patient also had multiple organisms grown from the culture. Infectious disease is following the patient closely. PAST MEDICAL HISTORY: Reviewed. REVIEW OF SYSTEMS: CARDIOVASCULAR: No angina. RESPIRATORY: As mentioned earlier. GI: As mentioned earlier. : No dysuria. NERVOUS SYSTEM: No numbness or weakness. Current medications are reviewed and include: 1. Tylenol 1000 MG q.4. 2. DuoNeb q.i.d. and p.r.n. 3. Xanax 0.25 q.6. 4. Norvasc 5 mg b.i.d. 5. Abilify 30 mg daily. 6. Aspirin 81mg. 7. Lioresal 10 mg t.i.d. 8. Pulmicort 1 mg b.i.d. 9. Wellbutrin 100 mg p.o. daily. 10. Coreg 6.25 mg b.i.d. 11. Santyl topical daily. 12. Daptomycin 500 mg q.24 hours. 13. Lovenox 40 mg subcu daily. 14. Perforomist 20 mcg b.i.d. 15. Neurontin 16. Dilaudid. 17. Levemir 36 units b.i.d. 18. Humalog. 19. Levaquin 750 daily. 20. Solu-Medrol 40 q.8. 21. Risperdal. 22. Senokot. PHYSICAL EXAM: The patient is alert and oriented x2. Pulse is 76, blood pressure 183/84, respirations 20, temperature 96.8., pulse ox 97% on 4 L. HEENT: Conjunctivae normal. NECK: No jugular venous distention. CARDIOVASCULAR: S1 and S2, muffled. RESPIRATORY: Breath sounds diminished at the bases. A few scattered rhonchi and crackles. ABDOMEN: Soft, obese, nontender. No mass palpable. LEGS: No edema, no swelling. NERVOUS SYSTEM: Higher function as mentioned. Moves all 4 limbs. No focal deficits. LYMPHATICS: No lymphadenopathy of neck, axillae or groin. SKIN: No ulcer, rash or bleeding. LABS: WBC 6.9, hemoglobin 9.1. Sodium 135, potassium 5.2. ASSESSMENT: 1. Acute hypoxic hypercarbic respiratory failure, possibly multifactorial secondary to obstructive sleep apnea, reactive lung disease as well as acute metabolic encephalopathy with chronic obstructive pulmonary disease acute exacerbation as well as possible sepsis. 2. Change in mental status, metabolic encephalopathy, multifactorial acute on chronic possibly from sepsis. 3. Possible right lower lobe pneumonia, possibly gram-negative sepsis. 4. Pseudomonas aeruginosa as well as vancomycin-resistant enterococcus from the wound cultures with possible sepsis. 5. Extensive sacral decubitus ulcer with possible osteomyelitis stage IV. 6. Anemia, normocytic anemia of chronic disease. 7. Increased platelets. 8. Super morbid obesity with body mass index 46.8. 9. Hyponatremia. 10. Hyperkalemia. 11. Gait dysfunction. 12. Hypoalbuminemia with mild to moderate protein calorie malnutrition. 13. History of chronic obstructive pulmonary disease. 14. Diabetes mellitus type 2. 15. Hypertension, essential. 16. Obstructive sleep apnea. 17. Chronic respiratory failure on home O2 nasal cannula, hypoxic. 18. History of paraplegia. 19. History of colostomy. 20. History of urostomy. 21. History of methicillin-resistant Staphylococcus aureus. 22. History of cardiac catheterization. 23. History of degenerative joint disease. 24. History of bipolar and schizophrenia disorder. 25. FULL CODE. RECOMMENDATIONS AND DISCUSSION: This 66-year-old gentleman who presented with multiple complex medical issues, we will monitor the patient closely. Continue the current medications, continue symptomatic treatment. Otherwise at this time I would recommend continue with broad-spectrum IV antibiotics. Monitor closely. Guarded prognosis because of multiple complex medical issues. Further recommendations to follow.
[2016-07-04] MEDS: IPRATROPIUM-ALBUTEROL 3 ML NEB INHALATION SCH ×4 (07:16→19:08)
[2016-07-04] MEDS: FORMOTEROL FUMARATE 20 MCG/2 ML NEBU INHALATION SCH ×2 (07:25→19:08)
[2016-07-04] MEDS: methylPREDNISolone SOD SUCCI 40 MG/ML 1 ML VIAL IV SCH ×3 (07:29→23:25)
[2016-07-04] MEDS: CARVEDILOL 6.25 MG TAB PO SCH (07:29)
[2016-07-04] MEDS: INSULIN LISPRO (humaLOG) 300 UNIT/3 ML VIAL SQ SCH ×3 (07:29→17:33)
[2016-07-04] MEDS: INSULIN DETEMIR 100 UNIT/ML 10 ML VIAL SQ SCH (07:29)
[2016-07-04] MEDS: buPROPion SR 100 MG TABLET.ER PO SCH (07:30)
[2016-07-04] MEDS: ENOXAPARIN 40 MG/0.4 ML SYRINGE SQ SCH (07:30)
[2016-07-04] MEDS: amLODIPine 5 MG TAB PO SCH ×2 (07:30→21:09)
[2016-07-04] MEDS: COLLAGENASE 250 UNIT/GM OINTMENT 30 GM TUBE TOPICAL SCH (07:30)
[2016-07-04] MEDS: NYSTATIN 100,000 UNIT/GM POWD 15 GM TOPICAL SCH ×2 (07:31→21:33)
[2016-07-04] MEDS: LISINOPRIL 20 MG TAB PO SCH (07:31)
[2016-07-04 08:04] LABS: Glucose,Whole Blood 294 mg/dL (75-99)
[2016-07-04 08:46] LABS: Anisocytosis Slight; Basophils % (A) 0 %; CH 25.9; CHCM 28.7; Eosinophils % (A) 0 %; HCT 31.7 % (39.0-53.0); HDW 4.21; HGB 9.3 gm/dL (13.0-17.5); Hypochromasia Marked; Luc # (Auto) 0.04; Luc % (Auto) 1; Lymphocytes # (A) 0.7 k/uL (1.0-4.8); Lymphocytes % (A) 11 %; MCH 26.4 pg (25.0-35.0); MCHC 29.2 g/dL (31.0-37.0); MCV 90.5 fL (80.0-100.0); Mean Platelet Volume 6.7; Monocytes # (A) 0.3 k/uL (0-1.0); Monocytes % (A) 4 %; Neutrophils # (A) 5.5 k/uL (1.3-7.7); Neutrophils % (A) 84 %; Poikilocytosis Moderate; RDW 16.5 % (11.5-15.5); WBC 6.6 k/uL (3.8-10.6); WBC (Perox) 6.61
[2016-07-04 08:57] LABS: Anion Gap 4 mmol/L; Blood Urea Nitrogen 20 mg/dL (9-20); Carbon Dioxide 36 mmol/L (22-30); Chloride 94 mmol/L (98-107); Glucose 316 mg/dL (74-99); Non-African American GFR(MDRD) >60 (>60 ml/min/1.73 sqM); Sodium 134 mmol/L (137-145)
[2016-07-04] MEDS: BUDESONIDE 1 MG/2 ML NEBU INHALATION SCH ×2 (11:03→19:08)
[2016-07-04 11:31] VITALS: BMI 51.2
[2016-07-04] MEDS: DAPTOmycin 500 MG in SODIUM CHLORIDE 0.9% 50 ML IV SCH (12:14)
[2016-07-04 12:36] LABS: Glucose,Whole Blood 300 mg/dL (75-99)
[2016-07-04] MEDS: LEVOFLOXACIN 750 MG TAB PO SCH (14:42)
[2016-07-04] MEDS: SODIUM CHLORIDE 0.9% 1,000 ML IV SCH (16:44)
[2016-07-04] MEDS ORDERED: HYDROmorphone 1 MG/ML 1 ML SYRINGE IVP PRN (17:19)
[2016-07-04] MEDS: CARVEDILOL 12.5 MG TAB PO SCH (17:33)
[2016-07-04 17:42] LABS: Glucose,Whole Blood 306 mg/dL (75-99)
--- NOTE | 2016-07-04 17:50 | P.PN ---
Subjective Date of service 07/04/2016. Progress note being dictated for Dr. Hagen. Interval history: This a 66-year-old male resident of [facility] admitted with change in mental status, acute metabolic encephalopathy, acute hypoxic hypercarbic respiratory failure, pneumonia, and multiple wounds/pressure ulcers , Pseudomonas aeruginosa, VRE. Maintained on specialty bed. Antibiotics as per ID. Breathing improving, currently 98% on room air. Nonproductive cough. Hypertensive this morning. Pain controlled. Blood sugars uncontrolled. Objective - Vital Signs Vital signs: Vital Signs Temp 96.9 F L 07/04/16 15:00 Pulse 72 07/04/16 15:39 Resp 21 07/04/16 15:00 BP 180/73 07/04/16 15:00 Pulse Ox 93 L 07/04/16 15:00 Intake & Output 07/03/16 07/04/16 07/04/16 18:59 06:59 18:59 Intake Total 1290 600 Output Total 2800 2100 1100 Balance -1510 -1500 -1100 Weight 153 kg Intake: IV 160 Sodium Chloride 0.9% 1, 160 000 ml @ 20 mls/hr IV . Q24H [facility] Rx#:[id number] Intake, IV Titration 300 Amount DAPTOmycin 500 mg In 50 Sodium Chloride 0.9% 50 ml @ 100 mls/hr IV Q24H [facility] Rx#:[id number] Levofloxacin 750Mg-D5w 150 Pmx 750 mg In Dextrose/ Water 1 150ml.bag @ 100 mls/hr IVPB Q24H [facility] Rx#: [id number] cefTAZidime 2 gm In 100 Sodium Chloride 0.9% 100 ml @ 100 mls/hr IVPB Q8HR [facility] Rx#:[id number] Oral 830 600 Output: Urine 2800 2100 1100 Other: Voiding Method Indwelling Catheter Indwelling Catheter Indwelling Catheter - Exam PHYSICAL EXAM: VITAL SIGNS: [As above] GENERAL: [Sitting up in bed, no acute distress] HEENT: [Pupils equal conjunctiva normal. Oral mucosa moist] NECK: [Supple, no JVD] RESPIRATORY EFFORT:[Normal] LUNGS: [Bilateral bases diminished, scattered rhonchi with fine crackles] CARDIOVASCULAR[regular S1 and S2, positive edema] GI: [Abdomen soft, nontender, ostomy present, positive bowel sounds.] PSYCH: [Alert and oriented -2, pleasantly confused. SKIN: Multiple wounds, please refer to pictures and nursing measurements; left gluteal fold, stage II, right buttocks stage II, scrotum stage II, coccyx stage IV NEURO: Higher functions as mentioned previously, paraplegic - Labs CBC & Chem 7: 07/04/16 08:20 07/04/16 08:20 Labs: Abnormal Lab Results - Last 24 Hours (Table) 07/03/16 07/03/16 07/04/16 Range/Units 17:02 20:54 07:26 RBC (4.30-5.90) m/uL Hgb (13.0-17.5) gm/dL Hct (39.0-53.0) % MCHC (31.0-37.0) g/dL RDW (11.5-15.5) % Plt Count (150-450) k/uL Lymphocytes # (1.0-4.8) k/uL Sodium (137-145) mmol/L Chloride (98-107) mmol/L Carbon Dioxide (22-30) mmol/L Creatinine (0.66-1.25) mg/dL Glucose (74-99) mg/dL POC Glucose (mg/dL) 276 H 316 H 294 H (75-99) mg/dL 07/04/16 07/04/16 07/04/16 Range/Units 08:20 08:20 12:15 RBC 3.50 L (4.30-5.90) m/uL Hgb 9.3 L (13.0-17.5) gm/dL Hct 31.7 L (39.0-53.0) % MCHC 29.2 L (31.0-37.0) g/dL RDW 16.5 H (11.5-15.5) % Plt Count 517 H (150-450) k/uL Lymphocytes # 0.7 L (1.0-4.8) k/uL Sodium 134 L (137-145) mmol/L Chloride 94 L (98-107) mmol/L Carbon Dioxide 36 H (22-30) mmol/L Creatinine 0.51 L (0.66-1.25) mg/dL Glucose 316 H (74-99) mg/dL POC Glucose (mg/dL) 300 H (75-99) mg/dL Microbiology - Last 24 Hours (Table) 06/30/16 23:30 Blood Culture - Preliminary Blood No Growth after 72 hours 06/30/16 20:50 Blood Culture - Preliminary Blood No Growth after 72 hours Assessment and Plan Plan: 1. Acute hypoxic hypercarbic respiratory failure, multifactorial secondary to obstructive sleep apnea, reactive lung disease as well as acute metabolic encephalopathy with acute exacerbation of COPD, possible sepsis. 2. [Change in mental status, acute on chronic metabolic encephalopathy, multifactorial possibly from sepsis]. 3. [Possible right lower lobe pneumonia, possibly gram-negative sepsis]. 4. [Pseudomonas aeruginosa as well as VRE from wound cultures with possible sepsis]. 5. [Extensive sacral/coccyx decubitus ulcer, stage IV with possible osteomyelitis]. 6. [Anemia, normocytic of chronic disease]. 7. [Morbid obesity, BMI 46.8]. 8. Hyponatremia 9. Hyperkalemia, improved 10. Increased platelets 11. Degenerative joint disease 12. Hypoalbuminemia with mild to moderate protein calorie malnutrition 13. COPD 14. Diabetes mellitus type 2, uncontrolled 15. Essential hypertension 16. Obstructive sleep apnea 17. Chronic hypoxic respiratory failure, on home O2 18. Paraplegia 19 colostomy 20. Urostomy 21. History of MRSA 22. History of bipolar and schizophrenia disorder 23. Hypertension. Plan: Continue on current medication regime ,monitoring and symptomatic treatment. Maintain IV antibiotics, daptomycin, Levaquin as per infectious disease. Coreg increased regarding hypertension. Dietary consult initiated regarding Protein supplementation. Blood sugars uncontrolled, insulin drip initiated. Close monitoring of Accu-Cheks may need to initiate insulin drip.Prognosis guarded given multiple complex medical issues. Further recommendations to follow. The impression and plan of care has been dictated as directed. : I performed a H&P examination of this patient and discussed the same with the dictator. I agree with the dictator's note. Any additional findings/opinions/ etc. will be noted.
[2016-07-04] MEDS ORDERED: INSULIN REGULAR BOLUS (FROM DRIP BAG) IV ONE (17:51)
[2016-07-04] MEDS: INSULIN REGULAR 100 UNIT in SODIUM CHLORIDE 0.9% 100 ML IV SCH ×2 (18:29→23:39)
[2016-07-04 18:32] LABS: Glucose,Whole Blood 321 mg/dL (75-99)
[2016-07-04] MEDS ORDERED: INSULIN DETEMIR 100 UNIT/ML 10 ML VIAL SQ SCH (19:00)
[2016-07-04] MEDS: ALPRAZolam 0.25 MG TAB PO PRN (19:01)
[2016-07-04 19:06] LABS: Glucose,Whole Blood 338 mg/dL (75-99)
[2016-07-04 19:51] LABS: Glucose,Whole Blood 299 mg/dL (75-99)
[2016-07-04 20:18] LABS: Glucose,Whole Blood 288 mg/dL (75-99)
[2016-07-04 20:45] LABS: Glucose,Whole Blood 268 mg/dL (75-99)
[2016-07-04] MEDS: SENNOSIDES-DOCUSATE SODIUM 1 EACH TAB PO SCH (21:09)
[2016-07-04] MEDS: ASPIRIN 81 MG CHEW PO SCH (21:09)
[2016-07-04] MEDS: risperiDONE 2 MG TAB PO SCH (21:09)
[2016-07-04] MEDS: ARIPiprazole 10 MG TAB PO SCH (21:10)
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
[2016-07-04 21:17] LABS: Glucose,Whole Blood 250 mg/dL (75-99)
--- NOTE | 2016-07-04 21:41 | PN ---
DATE OF SERVICE: 07/04/2016 This 66 -year-old gentleman who was admitted with acute hypoxic hypercarbic respiratory failure is being closely monitored at this time. Seen and evaluated the patient along with the nurse practitioner. Please refer to the nurse practitioner's notes and impressions documented as a scribe for further evaluation. She orders for further details. Further recommendations to follow.
[2016-07-04 22:16] LABS: Glucose,Whole Blood 223 mg/dL (75-99)
[2016-07-04 23:21] LABS: Glucose,Whole Blood 204 mg/dL (75-99)
[2016-07-05 01:24] LABS: Glucose,Whole Blood 167 mg/dL (75-99)
[2016-07-05 03:26] LABS: Glucose,Whole Blood 138 mg/dL (75-99)
[2016-07-05] MEDS: GABAPENTIN 400 MG CAP PO SCH ×3 (05:17→20:31)
[2016-07-05] MEDS: BACLOFEN 10 MG TAB PO SCH ×3 (05:17→20:31)
[2016-07-05 05:19] LABS: Glucose,Whole Blood 129 mg/dL (75-99)
[2016-07-05 06:23] LABS: Glucose,Whole Blood 123 mg/dL (75-99)
[2016-07-05 07:24] LABS: Glucose,Whole Blood 133 mg/dL (75-99)
[2016-07-05] MEDS ORDERED: INSULIN LISPRO (humaLOG) 300 UNIT/3 ML VIAL SQ SCH (07:30)
[2016-07-05] MEDS: ENOXAPARIN 40 MG/0.4 ML SYRINGE SQ SCH (07:57)
[2016-07-05] MEDS: LISINOPRIL 20 MG TAB PO SCH (07:57)
[2016-07-05] MEDS: amLODIPine 5 MG TAB PO SCH ×2 (07:57→20:31)
[2016-07-05] MEDS: buPROPion SR 100 MG TABLET.ER PO SCH (07:57)
[2016-07-05] MEDS: CARVEDILOL 12.5 MG TAB PO SCH ×2 (07:57→17:38)
[2016-07-05] MEDS: methylPREDNISolone SOD SUCCI 40 MG/ML 1 ML VIAL IV SCH ×3 (07:58→23:14)
[2016-07-05] MEDS: HYDROmorphone 1 MG/ML 1 ML SYRINGE IVP PRN ×4 (07:58→22:12)
[2016-07-05] MEDS: INSULIN LISPRO (humaLOG) 300 UNIT/3 ML VIAL SQ SCH ×3 (07:58→17:38)
[2016-07-05] MEDS: NYSTATIN 100,000 UNIT/GM POWD 15 GM TOPICAL SCH ×2 (08:01→20:32)
[2016-07-05] MEDS: COLLAGENASE 250 UNIT/GM OINTMENT 30 GM TUBE TOPICAL SCH (08:01)
[2016-07-05] MEDS: BUDESONIDE 1 MG/2 ML NEBU INHALATION SCH ×2 (08:18→20:12)
[2016-07-05] MEDS: FORMOTEROL FUMARATE 20 MCG/2 ML NEBU INHALATION SCH ×2 (08:18→20:12)
[2016-07-05] MEDS: IPRATROPIUM-ALBUTEROL 3 ML NEB INHALATION SCH ×4 (08:18→20:13)
[2016-07-05 08:24] LABS: Anisocytosis Slight; Basophils % (A) 0 %; CH 25.8; CHCM 28.7; Eosinophils % (A) 1 %; HCT 34.1 % (39.0-53.0); HDW 4.06; HGB 9.9 gm/dL (13.0-17.5); Hypochromasia Marked; Luc # (Auto) 0.04; Luc % (Auto) 1; Lymphocytes # (A) 1.1 k/uL (1.0-4.8); Lymphocytes % (A) 17 %; MCH 26.1 pg (25.0-35.0); MCV 89.9 fL (80.0-100.0); Mean Platelet Volume 6.5; Monocytes # (A) 0.2 k/uL (0-1.0); Monocytes % (A) 2 %; Neutrophils % (A) 79 %; Poikilocytosis Moderate; RDW 16.9 % (11.5-15.5); WBC 6.3 k/uL (3.8-10.6); WBC (Perox) 6.98
[2016-07-05 08:48] LABS: Anion Gap 5 mmol/L; Blood Urea Nitrogen 22 mg/dL (9-20); Calcium 10.5 mg/dL (8.4-10.2); Carbon Dioxide 38 mmol/L (22-30); Chloride 95 mmol/L (98-107); Glucose 151 mg/dL (74-99); Non-African American GFR(MDRD) >60 (>60 ml/min/1.73 sqM); Potassium 4.8 mmol/L (3.5-5.1); Sodium 138 mmol/L (137-145)
[2016-07-05 09:34] LABS: Glucose,Whole Blood 176 mg/dL (75-99)
[2016-07-05 11:37] LABS: Glucose,Whole Blood 131 mg/dL (75-99)
[2016-07-05] MEDS: DAPTOmycin 500 MG in SODIUM CHLORIDE 0.9% 50 ML IV SCH (12:08)
[2016-07-05] MEDS: SODIUM CHLORIDE 0.9% 1,000 ML IV SCH (13:14)
[2016-07-05] MEDS: LEVOFLOXACIN 750 MG TAB PO SCH (13:14)
[2016-07-05 13:34] LABS: Glucose,Whole Blood 180 mg/dL (75-99)
[2016-07-05 15:51] LABS: Glucose,Whole Blood 187 mg/dL (75-99)
[2016-07-05] MEDS: INSULIN REGULAR 100 UNIT in SODIUM CHLORIDE 0.9% 100 ML IV SCH (16:02)
[2016-07-05 17:32] LABS: Glucose,Whole Blood 126 mg/dL (75-99)
[2016-07-05 18:47] LABS: Glucose,Whole Blood 167 mg/dL (75-99)
--- NOTE | 2016-07-05 19:17 | PN ---
DATE OF SERVICE: 07/05/2016 This 66-year-old gentleman who was admitted with acute hypoxic hypercarbic respiratory failure secondary to multifactorial, pulmonary pathology, also had change in mental status and possibly sepsis from either right lower lobe pneumonia or significant coccygeal sacral wound. Multiple organisms are grown from the culture. Dr. Cast is following the patient closely. The patient is on multiple antibiotics at this time. The patient is also on IV steroids that are being tapered at this time. Past medical history reviewed. REVIEW OF SYSTEMS: CARDIOVASCULAR SYSTEM: No angina, palpitations. RESPIRATORY SYSTEM: As mentioned earlier. GI: No nausea. : No dysuria. NERVOUS SYSTEM: As mentioned earlier. Current medications are reviewed and include: 1. Tylenol 100 mg q.4 p.r.n. 2. DuoNeb q.i.d. and p.r.n. 3. Xanax 0.25 q.6 p.r.n. 4. Norvasc 5 mg p.o. b.i.d. 5. Abilify 30 mg at bedtime. 6. Aspirin 81 mg. 7. Lioresal 10 mg t.i.d. 8. Pulmicort 1 mg b.i.d. 9. Wellbutrin SR 100 mg p.o. daily. 10. Coreg 12.5 mg b.i.d. 11. Santyl daily. 12. Daptomycin 500 mg IV q.24 hours. 13. Lovenox 40 mg subcutaneously daily. 14. Perforomist 1 b.i.d. 15. Neurontin 800 mg t.i.d. 16. Dilaudid 0.5 q.4 p.r.n. 17. Humalog 15 before meals t.i.d. 18. Levaquin 750 p.o. daily. 19. Zestril 20 mg daily. 20. Solu-Medrol 40 IV q.8 hours. 21. Narcan. 22. Risperdal. 23. Senokot. PHYSICAL EXAMINATION: Patient is alert and oriented x3. Pulse is 80. Blood pressure is 171/86, respiration 18, temperature 97.6, pulse ox 96% on 4 L. HEENT: Conjunctivae normal. Oral mucosa moist. NECK: No jugular venous distention. No carotid bruit. No lymph node enlargement. CARDIOVASCULAR SYSTEM: S1, S2 muffled. RESPIRATORY SYSTEM: Breath sounds diminished at the bases. A few scattered rhonchi and crackles. ABDOMEN: Soft, obese, non-tender. LEGS: No edema. No swelling. NERVOUS SYSTEM: No focal deficit. Acute coccygeal wound present. LAB INVESTIGATIONS: WBC 6.3, hemoglobin 9.9. Accu-Cheks are noted. Calcium 10.5. ASSESSMENT: 1. Acute hypoxic hypercarbic respiratory failure, multifactorial, secondary to obstructive sleep apnea, reactive bronchospasm as well as acute metabolic encephalopathy with acute exacerbation of chronic obstructive pulmonary disease with possible sepsis, present on admission. 2. Change in mental status, acute on chronic metabolic encephalopathy, multifactorial, possibly from sepsis. 3. Possible right lower lobe pneumonia, possibly Gram-negative with sepsis. 4. Pseudomonas aeruginosa as well as vancomycin-resistant Enterococcus from the wound cultures with possible sepsis. 5. Extensive sacral coccygeal decubitus ulcer, grade 3 to 4, with possible osteomyelitis. 6. Anemia, normocytic; anemia of chronic disease. 7. Morbid obesity, body mass index of 46.8. 8. Hyponatremia. 9. Hyperkalemia, improved. 10. Increased platelets. 11. Degenerative joint disease. 12. Hypoalbuminemia with mild to moderate protein-calorie malnutrition. 13. Chronic obstructive pulmonary disease. 14. Diabetes mellitus, type 2, uncontrolled. 15. Essential hypertension. 16. Obstructive sleep apnea. 17. Chronic hypoxic respiratory failure, on home oxygen via nasal cannula. 18. History of paraplegia. 19. History of colostomy. 20. History of urostomy. 21. History of methicillin-resistant Staphylococcus aureus. 22. History of bipolar schizophrenic disorder. 23. History of hypertension. RECOMMENDATIONS AND DISCUSSION: In this 66-year-old gentleman who presented with multiple complex medical issues, we will monitor the patient closely, continue the current medications, continue symptomatic treatment. I recommend tapering the steroids per Pulmonary. Otherwise, continue with antibiotics. Guarded prognosis because of multiple complex medical issues. Patient is currently on an insulin drip; could be titrated to insulin once the IV steroids have been tapered off. Prognosis guarded. Anticipate ECF rehab. Guarded prognosis. Further recommendations to follow. MTDD
[2016-07-05] MEDS: ASPIRIN 81 MG CHEW PO SCH (20:31)
[2016-07-05] MEDS: SENNOSIDES-DOCUSATE SODIUM 1 EACH TAB PO SCH (20:31)
[2016-07-05] MEDS: risperiDONE 2 MG TAB PO SCH (20:31)
[2016-07-05 20:32] LABS: Glucose,Whole Blood 230 mg/dL (75-99)
[2016-07-05] MEDS: ARIPiprazole 10 MG TAB PO SCH (20:32)
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
[2016-07-05 22:30] LABS: Glucose,Whole Blood 162 mg/dL (75-99)
[2016-07-05] MEDS: ALPRAZolam 0.25 MG TAB PO PRN (23:14)
[2016-07-06 00:32] LABS: Glucose,Whole Blood 151 mg/dL (75-99)
[2016-07-06 02:37] LABS: Glucose,Whole Blood 126 mg/dL (75-99)
[2016-07-06 04:09] LABS: Glucose,Whole Blood 158 mg/dL (75-99)
[2016-07-06] MEDS: GABAPENTIN 400 MG CAP PO SCH ×2 (05:55→12:00)
[2016-07-06] MEDS: BACLOFEN 10 MG TAB PO SCH ×2 (05:55→12:00)
[2016-07-06 06:01] LABS: Glucose,Whole Blood 135 mg/dL (75-99)
[2016-07-06] MEDS: FORMOTEROL FUMARATE 20 MCG/2 ML NEBU INHALATION SCH (07:10)
[2016-07-06] MEDS: IPRATROPIUM-ALBUTEROL 3 ML NEB INHALATION SCH ×3 (07:10→15:40)
[2016-07-06] MEDS: BUDESONIDE 1 MG/2 ML NEBU INHALATION SCH (07:10)
[2016-07-06 07:53] LABS: Glucose,Whole Blood 160 mg/dL (75-99)
[2016-07-06] MEDS: amLODIPine 5 MG TAB PO SCH (07:54)
[2016-07-06] MEDS: methylPREDNISolone SOD SUCCI 40 MG/ML 1 ML VIAL IV SCH ×2 (07:54→15:53)
[2016-07-06] MEDS: CARVEDILOL 12.5 MG TAB PO SCH ×2 (07:54→16:32)
[2016-07-06] MEDS: buPROPion SR 100 MG TABLET.ER PO SCH (07:54)
[2016-07-06] MEDS: COLLAGENASE 250 UNIT/GM OINTMENT 30 GM TUBE TOPICAL SCH (07:55)
[2016-07-06] MEDS: ENOXAPARIN 40 MG/0.4 ML SYRINGE SQ SCH (07:55)
[2016-07-06] MEDS: NYSTATIN 100,000 UNIT/GM POWD 15 GM TOPICAL SCH (07:55)
[2016-07-06] MEDS: LISINOPRIL 20 MG TAB PO SCH (07:55)
[2016-07-06] MEDS: INSULIN LISPRO (humaLOG) 300 UNIT/3 ML VIAL SQ SCH ×2 (07:57→13:06)
[2016-07-06] MEDS: HYDROmorphone 1 MG/ML 1 ML SYRINGE IVP PRN ×3 (08:39→16:30)
[2016-07-06 10:14] LABS: Glucose,Whole Blood 254 mg/dL (75-99)
[2016-07-06 11:50] LABS: Glucose,Whole Blood 221 mg/dL (75-99)
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
[2016-07-06] MEDS: DAPTOmycin 500 MG in SODIUM CHLORIDE 0.9% 50 ML IV SCH (11:59)
[2016-07-06] MEDS: LEVOFLOXACIN 750 MG TAB PO SCH (13:07)
[2016-07-06] MEDS: ALPRAZolam 0.25 MG TAB PO PRN (14:02)
[2016-07-06] MEDS: INSULIN REGULAR 100 UNIT in SODIUM CHLORIDE 0.9% 100 ML IV SCH (14:03)
[2016-07-06 14:06] LABS: Glucose,Whole Blood 249 mg/dL (75-99)
[2016-07-06] MEDS: SODIUM CHLORIDE 0.9% 1,000 ML IV SCH (15:25)
[2016-07-06 16:08] LABS: Glucose,Whole Blood 209 mg/dL (75-99)
[2016-07-06 16:23] VITALS: BP 146/66; PULSE 83; RESP 20; TEMP 97.4
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
--- NOTE | 2016-07-20 09:16 | EEG ---
DATE OF SERVICE: 07/04/2016 REASON FOR TESTING: Altered mental status. AGE: 66Y DESCRIPTION OF THE PROCEDURE: This EEG was performed using a 21-channel digital electroencephalograph, following the international 10 to 20 system. DESCRIPTION OF THE RECORDING: From the beginning of the tracing, and with the patient's eyes closed, the background rhythm was mostly consisting of 7 Hz theta frequency in the posterior occipital leads. No obvious asymmetry is seen. Photic stimulation was performed with a minimal driving response seen. No pathological waves were elicited. Hyperventilation was not performed. Occasional movement and muscle artifacts are seen. The patient remains awake throughout the tracing. No epileptiform discharges were seen. His EKG lead showed a regular rate and rhythm. INTERPRETATION: This awake EEG is abnormal due to the presence of generalized slowing of the background rhythm, mostly in the theta range. This is consistent with mild encephalopathy. No epileptiform discharges were seen. The absence of epileptiform discharges does not rule out the diagnosis of epilepsy, therefore, clinical correlation is recommended.
== END 2016-07-06 18:28 | DRG 871 ==
LOC: EC 12:04 → 6SEL 15:36 → 4MS4W 07-03 15:47
PROVIDERS: ADMIT Hospitalist; ATTEND Hospitalist
DX: A41.9 Sepsis, unspecified organism (principal); G92 Toxic encephalopathy; J96.21 Acute and chronic respiratory failure with hypoxia; L89.154 Pressure ulcer of sacral region, stage 4; J96.22 Acute and chronic respiratory failure with hypercapnia; J18.9 Pneumonia, unspecified organism; E44.0 Moderate protein-calorie malnutrition; G82.20 Paraplegia, unspecified; E87.1 Hypo-osmolality and hyponatremia; E66.2 Morbid (severe) obesity with alveolar hypoventilation; J44.0 Chronic obstructive pulmonary disease with (acute) lower respiratory infection; J98.11 Atelectasis; M86.8X8 Other osteomyelitis, other site; L89.312 Pressure ulcer of right buttock, stage 2; I11.0 Hypertensive heart disease with heart failure; I50.9 Heart failure, unspecified; E11.65 Type 2 diabetes mellitus with hyperglycemia; D63.8 Anemia in other chronic diseases classified elsewhere; E87.5 Hyperkalemia; M19.90 Unspecified osteoarthritis, unspecified site; R26.9 Unspecified abnormalities of gait and mobility; I25.10 Atherosclerotic heart disease of native coronary artery without angina pectoris; F31.9 Bipolar disorder, unspecified; F20.9 Schizophrenia, unspecified; L89.322 Pressure ulcer of left buttock, stage 2; B96.5 Pseudomonas (aeruginosa) (mallei) (pseudomallei) as the cause of diseases classified elsewhere; D47.3 Essential (hemorrhagic) thrombocythemia; B95.2 Enterococcus as the cause of diseases classified elsewhere; Z93.0 Tracheostomy status; Z99.81 Dependence on supplemental oxygen; Z68.42 Body mass index [BMI] 45.0-49.9, adult; Z16.21 Resistance to vancomycin; Z79.4 Long term (current) use of insulin; Z79.82 Long term (current) use of aspirin; Z79.899 Other long term (current) drug therapy; Z79.01 Long term (current) use of anticoagulants; Z86.14 Personal history of Methicillin resistant Staphylococcus aureus infection; Z87.891 Personal history of nicotine dependence; Z88.0 Allergy status to penicillin; Z88.8 Allergy status to other drugs, medicaments and biological substances; Z95.5 Presence of coronary angioplasty implant and graft; Z93.3 Colostomy status; Z93.6 Other artificial openings of urinary tract status; V89.2XXS Person injured in unspecified motor-vehicle accident, traffic, sequela
CPT/HCPCS: 36415; 36600; 70450; 71010; 72170; 72220; 80048; 80053; 80202; 81001; 82550; 82553; 82805; 83036; 83605; 83735; 84100; 84134; 84484; 85025; 85610; 85652; 85730; 86140; 87040; 87070; 87077; 87086; 87186; 87205; 87502; 93005; 94640; 94660; 95816; 96374; 99291

== ENCOUNTER 2016-07-16 08:57 | Inpatient (IN) | payer MEDICARE, BC ==
[2016-07-16] MEDS ORDERED: SUCCINYLCHOLINE CHLORIDE VIAL 200 MG/10 ML VIAL IV STA (09:10)
[2016-07-16] MEDS ORDERED: MIDAZOLAM (PF) 1 MG/ML 5 ML VIAL IV STA (09:10)
[2016-07-16] MEDS ORDERED: LORazepam 2 MG/ML SYRINGE IV PRN ×2 (09:19)
--- NOTE | 2016-07-16 09:19 | ED ---
General Adult HPI - General Chief complaint: Altered Mental Status Stated complaint: Unresponsive Time Seen by Provider: 07/16/16 09:00 Source: patient, EMS, RN notes reviewed Mode of arrival: EMS Limitations: altered mental status, physical limitation - History of Present Illness Initial comments: Patient is a 66-year-old male presenting to emergency Department after being found unresponsive. Patient is from half-way. This morning was found unresponsive. Patient comes in unresponsive and nonverbal. Patient did briefly wake up and state his name and location and then became unresponsive again. Further history is limited. - Related Data Home Medications Medication Instructions Recorded Confirmed ARIPiprazole [Abilify] 30 mg PO HS@199906/12/16 07/16/16 Acetaminophen Tab [Tylenol] 500 mg PO Q4H PRN 06/12/16 07/16/16 Aspirin 81 mg PO HS 06/12/16 07/16/16 Atorvastatin [Lipitor] 10 mg PO HS 06/12/16 07/16/16 Baclofen 10 mg PO TID@0500,1300,2100 06/12/16 07/16/16 Budesonide [Pulmicort] 0.5 mg INHALATION RT-BID@0500,1700 06/12/16 07/16/16 Enoxaparin [Lovenox] 40 mg SQ HS 06/12/16 07/16/16 Gabapentin 800 mg PO TID@0500,1300,2100 06/12/16 07/16/16 Insulin Aspart [NovoLOG] 8 unit SQ TID@0700,1100,1600 06/12/16 07/16/16 Insulin Detemir [Levemir] 36 unit SQ BID@0700,1900 06/12/16 07/16/16 Ipratropium-Albuterol Nebulize 3 ml INHALATION RT-BID@0500,1700 06/12/16 [Duoneb 0.5 mg-3 mg/3 ml Soln] Lisinopril [Zestril] 20 mg PO DAILY 06/12/16 07/16/16 Nystatin [Nystop] 1 applic TOPICAL BID 06/12/16 07/16/16 amLODIPine [Norvasc] 5 mg PO BID@0700,1600 06/12/16 07/16/16 buPROPion HCL [Wellbutrin SR] 100 mg PO DAILY@0700 06/12/16 07/16/16 risperiDONE 4 mg PO HS 06/12/16 07/16/16 Sennosides-Docusate Sodium 1 tab PO HS 06/30/16 07/16/16 [Senokot-S] Amino Acids/Protein Hydrolys 30 ml PO BID 07/16/16 07/16/16 [Pro-Stat Supplement] DAPTOmycin [Daptomycin] 500 mg IV HS 07/16/16 07/16/16 Magnesium Oxide [Mag-Ox] 400 mg PO HS 07/16/16 07/16/16 Previous Rx's Medication Instructions Recorded ALPRAZolam [Xanax] 0.25 mg PO Q6H PRN #20 tab 07/06/16 Carvedilol [Coreg*] 12.5 mg PO BID-W/MEALS tab 07/06/16 HYDROcodone/APAP 5-325MG [[place] 1 tab PO Q6H PRN #20 tab 07/06/16 5-325] Levofloxacin [Levaquin] 750 mg PO DAILY #42 tab 07/06/16 Allergies Allergy/AdvReac Type Severity Reaction Status Date / Time Penicillins Allergy Rash/Hives Verified 07/16/16 11:04 ziprasidone [From Geodon] AdvReac Unknown Verified 07/16/16 11:04 Review of Systems ROS Statement: Those systems with pertinent positive or pertinent negative responses have been documented in the HPI. ROS Other: All systems not noted in ROS Statement are negative. Limitations: ROS unobtainable due to patients medical condition Past Medical History Past Medical History: Heart Failure, COPD, Diabetes Mellitus, Hypertension, Respiratory Disorder, Sleep Apnea/CPAP/BIPAP Additional Past Medical History / Comment(s): acute and chronic respiratory failure, obesity, Paraplegia, generalized muscle weakness, IDC/urostomy, colostomy, no cpap required, History of Any Multi-Drug Resistant Organisms: VRE Date of last positivie culture/infection: 2015, 06/30/16 VRE MDRO Source:: coccyx Past Surgical History: Back Surgery, Bowel Resection, Heart Catheterization, Tonsillectomy Additional Past Surgical History / Comment(s): Tracheostomy 2017, 6 back surgeries, PEG tube(not being used at this time), heart cath with stent-unsure of year Past Anesthesia/Blood Transfusion Reactions: No Reported Reaction Past Psychological History: Bipolar, Schizoaffective Disorder Smoking Status: Never smoker Past Alcohol Use History: None Reported Past Drug Use History: None Reported - Past Family History Father History Unknown: Yes Mother History Unknown: Yes General Exam Limitations: altered mental status, physical limitation General appearance: obtunded, obese Head exam: Present: atraumatic Eye exam: Present: normal appearance, PERRL ENT exam: Present: normal oropharynx Neck exam: Present: normal inspection Respiratory exam: Present: normal lung sounds bilaterally Cardiovascular Exam: Present: regular rate, normal rhythm GI/Abdominal exam: Present: soft, other (Suprapubic catheter and ostomy). Absent: tenderness Extremities exam: Present: pedal edema. Absent: calf tenderness Neurological exam: Present: other (Unresponsive.) Psychiatric exam: Present: other (Unresponsive) Skin exam: Absent: rash Course Vital Signs 07/16/16 07/16/16 07/16/16 09:52 10:21 10:37 Temperature Pulse Rate 64 63 61 Respiratory 16 16 16 Rate Blood Pressure 88/50 89/53 85/51 O2 Sat by Pulse 100 100 100 Oximetry 07/16/16 07/16/16 07/16/16 10:50 11:27 11:53 Temperature 97.5 F L 97.6 F Pulse Rate 63 61 60 Respiratory 18 16 16 Rate Blood Pressure 85/51 88/84 127/58 O2 Sat by Pulse 100 99 100 Oximetry - Reevaluation(s) Reevaluation #1: 07/16/16 09:54 Dr. Khan notified to review EKG. 07/16/16 10:44 Dr. Khan did earlier come down and review EKG. 07/16/16 10:52 Patient does not meet sepsis criteria as he does not meet SIRS criteria. Patient has evidence of UTI and IV and Biaxin been started. Patient is anemic and blood transfusion has been ordered. Blood bank called and requested to have it done stat. 07/16/16 11:59 Patient again reevaluated. Blood pressure has been stabilized. Case was discussed in detail with Dr. Sidhu, who will admit for Dr. Bowen. Case also discussed in detail with Dr. Rodrigues, who will consult. Admission orders written. EKG Findings - EKG Comments: EKG Findings:: Sinus rhythm at 64. UT 156. QRS 82. QT 342. QTC 352. Normal axis. Normal QRS. Borderline ST changes inferior and leads V4 and V5. Previous EKG dated 06/30/2016 reviewed. Procedures - ABG Interpretation Ph: 7.4 PCO2: 56.5 PO2: 97 Bicarbonate: 34.3 Additional Comments: On 100% oxygen - Intubation Time Out Performed: Yes Sedative: Versed Paralytic: Succinylcholine Laryngoscope: Ramos Size: 3 ET Tube Size: 8 Tube Secured Location: lips Tube Placement Confirmation: visualized tube passing through cords, equal breath sounds bilaterally, no breath sounds over epigastrium, confirmation by capnometry Patient Tolerated Procedure: well Intubation Complications: none Medical Decision Making - Lab Data Result diagrams: 07/16/16 09:48 07/16/16 09:48 Lab Results 07/16/16 07/16/16 07/16/16 Range/Units 09:45 09:48 09:48 WBC (3.8-10.6) k/uL RBC (4.30-5.90) m/uL Hgb (13.0-17.5) gm/dL Hct (39.0-53.0) % MCV (80.0-100.0) fL MCH (25.0-35.0) pg MCHC (31.0-37.0) g/dL RDW (11.5-15.5) % Plt Count (150-450) k/uL Neutrophils % % Lymphocytes % % Monocytes % % Eosinophils % % Basophils % % Neutrophils # (1.3-7.7) k/uL Lymphocytes # (1.0-4.8) k/uL Monocytes # (0-1.0) k/uL Eosinophils # (0-0.7) k/uL Basophils # (0-0.2) k/uL Hypochromasia Poikilocytosis Anisocytosis PT (9.0-12.0) sec INR (<1.1) APTT (22.0-30.0) sec Sample Site rrad ABG pH 7.40 (7.35-7.45) ABG pCO2 57 H (35-45) mmHg ABG pO2 97 (83-108) mmHg ABG HCO3 34 H (21-25) mmol/L ABG Total CO2 9 L (19-24) mmol/L ABG O2 Saturation 99.0 H (94-97) % ABG Base Excess 9.1 mmol/L FiO2 100 % Sodium (137-145) mmol/L Potassium (3.5-5.1) mmol/L Chloride (98-107) mmol/L Carbon Dioxide (22-30) mmol/L Anion Gap mmol/L BUN (9-20) mg/dL Creatinine (0.66-1.25) mg/dL Est GFR (MDRD) Af Amer (>60 ml/min/1.73 sqM) Est GFR (MDRD) Non-Af (>60 ml/min/1.73 sqM) Glucose (74-99) mg/dL Calcium (8.4-10.2) mg/dL Total Bilirubin (0.2-1.3) mg/dL AST (17-59) U/L ALT (21-72) U/L Alkaline Phosphatase (38-126) U/L Total Creatine Kinase 43 L (55-170) U/L CK-MB (CK-2) 0.5 (0.0-2.4) ng/mL CK-MB (CK-2) Rel Index 1.2 Troponin I 0.018 (0.000-0.034) ng/mL NT-Pro-B Natriuret Pep 326 pg/mL Total Protein (6.3-8.2) g/dL Albumin (3.5-5.0) g/dL Urine Color Urine Appearance (Clear) Urine pH (5.0-8.0) Ur Specific [place] (1.001-1.035) Urine Protein (Negative) Urine Glucose (UA) (Negative) Urine Ketones (Negative) Urine Blood (Negative) Urine Nitrite (Negative) Urine Bilirubin (Negative) Urine Urobilinogen (<2.0) mg/dL Ur Leukocyte Esterase (Negative) Urine RBC (0-5) /hpf Urine WBC (0-5) /hpf Amorphous Sediment (None) /hpf Urine Bacteria (None) /hpf Urine Mucus (None) /hpf Urine Yeast (Budding) (None) /hpf Stool Occult Blood (Negative) Urine Opiates Screen (NotDetected) Ur Oxycodone Screen (NotDetected) Urine Methadone Screen (NotDetected) Ur Propoxyphene Screen (NotDetected) Ur Barbiturates Screen (NotDetected) U Tricyclic Antidepress (NotDetected) Ur Phencyclidine Scrn (NotDetected) Ur Amphetamines Screen (NotDetected) U Methamphetamines Scrn (NotDetected) U Benzodiazepines Scrn (NotDetected) Urine Cocaine Screen (NotDetected) U Marijuana (THC) Screen (NotDetected) Blood Type Blood Type Confirm Blood Type Recheck Antibody Screen Crossmatch Spec Expiration Date 07/16/16 07/16/16 07/16/16 Range/Units 09:48 09:48 09:48 WBC 12.9 H (3.8-10.6) k/uL RBC 2.52 L (4.30-5.90) m/uL Hgb 6.6 L* D (13.0-17.5) gm/dL Hct 22.5 L (39.0-53.0) % MCV 89.3 (80.0-100.0) fL MCH 26.3 (25.0-35.0) pg MCHC 29.4 L (31.0-37.0) g/dL RDW 18.2 H (11.5-15.5) % Plt Count 205 (150-450) k/uL Neutrophils % 76 % Lymphocytes % 12 % Monocytes % 7 % Eosinophils % 4 % Basophils % 0 % Neutrophils # 9.7 H (1.3-7.7) k/uL Lymphocytes # 1.5 (1.0-4.8) k/uL Monocytes # 0.9 (0-1.0) k/uL Eosinophils # 0.5 (0-0.7) k/uL Basophils # 0.0 (0-0.2) k/uL Hypochromasia Marked Poikilocytosis Slight Anisocytosis Slight PT 12.7 H (9.0-12.0) sec INR 1.3 (<1.1) APTT 28.5 (22.0-30.0) sec Sample Site ABG pH (7.35-7.45) ABG pCO2 (35-45) mmHg ABG pO2 (83-108) mmHg ABG HCO3 (21-25) mmol/L ABG Total CO2 (19-24) mmol/L ABG O2 Saturation (94-97) % ABG Base Excess mmol/L FiO2 % Sodium 136 L (137-145) mmol/L Potassium 5.0 (3.5-5.1) mmol/L Chloride 96 L (98-107) mmol/L Carbon Dioxide 35 H (22-30) mmol/L Anion Gap 5 mmol/L BUN 33 H (9-20) mg/dL Creatinine 0.85 (0.66-1.25) mg/dL Est GFR (MDRD) Af Amer >60 (>60 ml/min/1.73 sqM) Est GFR (MDRD) Non-Af >60 (>60 ml/min/1.73 sqM) Glucose 88 (74-99) mg/dL Calcium 8.1 L (8.4-10.2) mg/dL Total Bilirubin 0.3 (0.2-1.3) mg/dL AST 23 (17-59) U/L ALT 34 (21-72) U/L Alkaline Phosphatase 61 (38-126) U/L Total Creatine Kinase (55-170) U/L CK-MB (CK-2) (0.0-2.4) ng/mL CK-MB (CK-2) Rel Index Troponin I (0.000-0.034) ng/mL NT-Pro-B Natriuret Pep pg/mL Total Protein 4.3 L (6.3-8.2) g/dL Albumin 2.0 L (3.5-5.0) g/dL Urine Color Urine Appearance (Clear) Urine pH (5.0-8.0) Ur Specific [place] (1.001-1.035) Urine Protein (Negative) Urine Glucose (UA) (Negative) Urine Ketones (Negative) Urine Blood (Negative) Urine Nitrite (Negative) Urine Bilirubin (Negative) Urine Urobilinogen (<2.0) mg/dL Ur Leukocyte Esterase (Negative) Urine RBC (0-5) /hpf Urine WBC (0-5) /hpf Amorphous Sediment (None) /hpf Urine Bacteria (None) /hpf Urine Mucus (None) /hpf Urine Yeast (Budding) (None) /hpf Stool Occult Blood (Negative) Urine Opiates Screen (NotDetected) Ur Oxycodone Screen (NotDetected) Urine Methadone Screen (NotDetected) Ur Propoxyphene Screen (NotDetected) Ur Barbiturates Screen (NotDetected) U Tricyclic Antidepress (NotDetected) Ur Phencyclidine Scrn (NotDetected) Ur Amphetamines Screen (NotDetected) U Methamphetamines Scrn (NotDetected) U Benzodiazepines Scrn (NotDetected) Urine Cocaine Screen (NotDetected) U Marijuana (THC) Screen (NotDetected) Blood Type Blood Type Confirm Blood Type Recheck Antibody Screen Crossmatch Spec Expiration Date 07/16/16 07/16/16 07/16/16 Range/Units 09:48 09:48 11:22 WBC (3.8-10.6) k/uL RBC (4.30-5.90) m/uL Hgb (13.0-17.5) gm/dL Hct (39.0-53.0) % MCV (80.0-100.0) fL MCH (25.0-35.0) pg MCHC (31.0-37.0) g/dL RDW (11.5-15.5) % Plt Count (150-450) k/uL Neutrophils % % Lymphocytes % % Monocytes % % Eosinophils % % Basophils % % Neutrophils # (1.3-7.7) k/uL Lymphocytes # (1.0-4.8) k/uL Monocytes # (0-1.0) k/uL Eosinophils # (0-0.7) k/uL Basophils # (0-0.2) k/uL Hypochromasia Poikilocytosis Anisocytosis PT (9.0-12.0) sec INR (<1.1) APTT (22.0-30.0) sec Sample Site ABG pH (7.35-7.45) ABG pCO2 (35-45) mmHg ABG pO2 (83-108) mmHg ABG HCO3 (21-25) mmol/L ABG Total CO2 (19-24) mmol/L ABG O2 Saturation (94-97) % ABG Base Excess mmol/L FiO2 % Sodium (137-145) mmol/L Potassium (3.5-5.1) mmol/L Chloride (98-107) mmol/L Carbon Dioxide (22-30) mmol/L Anion Gap mmol/L BUN (9-20) mg/dL Creatinine (0.66-1.25) mg/dL Est GFR (MDRD) Af Amer (>60 ml/min/1.73 sqM) Est GFR (MDRD) Non-Af (>60 ml/min/1.73 sqM) Glucose (74-99) mg/dL Calcium (8.4-10.2) mg/dL Total Bilirubin (0.2-1.3) mg/dL AST (17-59) U/L ALT (21-72) U/L Alkaline Phosphatase (38-126) U/L Total Creatine Kinase (55-170) U/L CK-MB (CK-2) (0.0-2.4) ng/mL CK-MB (CK-2) Rel Index Troponin I (0.000-0.034) ng/mL NT-Pro-B Natriuret Pep pg/mL Total Protein (6.3-8.2) g/dL Albumin (3.5-5.0) g/dL Urine Color Yellow Urine Appearance Turbid (Clear) Urine pH 5.0 (5.0-8.0) Ur Specific [place] 1.020 (1.001-1.035) Urine Protein 2+ H (Negative) Urine Glucose (UA) Negative (Negative) Urine Ketones Negative (Negative) Urine Blood Moderate H (Negative) Urine Nitrite Negative (Negative) Urine Bilirubin Negative (Negative) Urine Urobilinogen <2.0 (<2.0) mg/dL Ur Leukocyte Esterase Large H (Negative) Urine RBC 26 H (0-5) /hpf Urine WBC 124 H (0-5) /hpf Amorphous Sediment Rare H (None) /hpf Urine Bacteria Few H (None) /hpf Urine Mucus Rare H (None) /hpf Urine Yeast (Budding) Many H (None) /hpf Stool Occult Blood Negative (Negative) Urine Opiates Screen Detected H (NotDetected) Ur Oxycodone Screen Not Detected (NotDetected) Urine Methadone Screen Not Detected (NotDetected) Ur Propoxyphene Screen Not Detected (NotDetected) Ur Barbiturates Screen Not Detected (NotDetected) U Tricyclic Antidepress Not Detected (NotDetected) Ur Phencyclidine Scrn Not Detected (NotDetected) Ur Amphetamines Screen Not Detected (NotDetected) U Methamphetamines Scrn Not Detected (NotDetected) U Benzodiazepines Scrn Detected H (NotDetected) Urine Cocaine Screen Not Detected (NotDetected) U Marijuana (THC) Screen Not Detected (NotDetected) Blood Type A Positive Blood Type Confirm Blood Type Recheck CABO Indicated Antibody Screen NEGATIVE Crossmatch See Detail Spec Expiration Date 07/19/2016 - 234707/16/16 Range/Units 11:22 WBC (3.8-10.6) k/uL RBC (4.30-5.90) m/uL Hgb (13.0-17.5) gm/dL Hct (39.0-53.0) % MCV (80.0-100.0) fL MCH (25.0-35.0) pg MCHC (31.0-37.0) g/dL RDW (11.5-15.5) % Plt Count (150-450) k/uL Neutrophils % % Lymphocytes % % Monocytes % % Eosinophils % % Basophils % % Neutrophils # (1.3-7.7) k/uL Lymphocytes # (1.0-4.8) k/uL Monocytes # (0-1.0) k/uL Eosinophils # (0-0.7) k/uL Basophils # (0-0.2) k/uL Hypochromasia Poikilocytosis Anisocytosis PT (9.0-12.0) sec INR (<1.1) APTT (22.0-30.0) sec Sample Site ABG pH (7.35-7.45) ABG pCO2 (35-45) mmHg ABG pO2 (83-108) mmHg ABG HCO3 (21-25) mmol/L ABG Total CO2 (19-24) mmol/L ABG O2 Saturation (94-97) % ABG Base Excess mmol/L FiO2 % Sodium (137-145) mmol/L Potassium (3.5-5.1) mmol/L Chloride (98-107) mmol/L Carbon Dioxide (22-30) mmol/L Anion Gap mmol/L BUN (9-20) mg/dL Creatinine (0.66-1.25) mg/dL Est GFR (MDRD) Af Amer (>60 ml/min/1.73 sqM) Est GFR (MDRD) Non-Af (>60 ml/min/1.73 sqM) Glucose (74-99) mg/dL Calcium (8.4-10.2) mg/dL Total Bilirubin (0.2-1.3) mg/dL AST (17-59) U/L ALT (21-72) U/L Alkaline Phosphatase (38-126) U/L Total Creatine Kinase (55-170) U/L CK-MB (CK-2) (0.0-2.4) ng/mL CK-MB (CK-2) Rel Index Troponin I (0.000-0.034) ng/mL NT-Pro-B Natriuret Pep pg/mL Total Protein (6.3-8.2) g/dL Albumin (3.5-5.0) g/dL Urine Color Urine Appearance (Clear) Urine pH (5.0-8.0) Ur Specific [place] (1.001-1.035) Urine Protein (Negative) Urine Glucose (UA) (Negative) Urine Ketones (Negative) Urine Blood (Negative) Urine Nitrite (Negative) Urine Bilirubin (Negative) Urine Urobilinogen (<2.0) mg/dL Ur Leukocyte Esterase (Negative) Urine RBC (0-5) /hpf Urine WBC (0-5) /hpf Amorphous Sediment (None) /hpf Urine Bacteria (None) /hpf Urine Mucus (None) /hpf Urine Yeast (Budding) (None) /hpf Stool Occult Blood (Negative) Urine Opiates Screen (NotDetected) Ur Oxycodone Screen (NotDetected) Urine Methadone Screen (NotDetected) Ur Propoxyphene Screen (NotDetected) Ur Barbiturates Screen (NotDetected) U Tricyclic Antidepress (NotDetected) Ur Phencyclidine Scrn (NotDetected) Ur Amphetamines Screen (NotDetected) U Methamphetamines Scrn (NotDetected) U Benzodiazepines Scrn (NotDetected) Urine Cocaine Screen (NotDetected) U Marijuana (THC) Screen (NotDetected) Blood Type Blood Type Confirm A Positive Blood Type Recheck Antibody Screen Crossmatch Spec Expiration Date - Radiology Data Radiology results: report reviewed (CT the brain shows no acute process), image reviewed (Chest x-ray shows intubation with ET tube in appropriate position. Cardiomegaly. Vascular congestion.) Critical Care Time Critical Care Time: Yes Total Critical Care Time: 45 Disposition Clinical Impression: Altered mental status, Anemia, Urinary tract infection, Respiratory failure Disposition: ADMITTED IP TO THIS [facility] Condition: Critical
[2016-07-16] MEDS ORDERED: SODIUM CHLORIDE 0.9% 500 ML IV STA (09:40)
[2016-07-16] MEDS: NOREPINEPHRIN 4 MG-0.9% NS PMX 4 MG/250 ML ML IV ONE ×2 (09:45→17:26)
[2016-07-16] MEDS ORDERED: PROPOFOL 500 MG in EMPTY BAG 1 BAG IV ONE (09:45)
--- NOTE | 2016-07-16 09:48 | XR ---
EXAMINATION TYPE: XR chest 1V portable DATE OF EXAM: 07/16/2016 9:34 AM COMPARISON: Prior chest x-ray 30 June 2016 HISTORY: Status post intubation TECHNIQUE: Single frontal view of the chest is obtained. FINDINGS: There is been interval placement of an endotracheal tube is overlying the tracheal air col umn. Prominence of the mediastinum is present similar to prior exam, the heart remains enlarged. Biba silar density is present, there is blunting of the costophrenic angles. Interstitium and central vasc ularity are increased. Right-sided PICC line shows the distal tip near the cavoatrial junction level. Postop change noted in the thoracic lumbar spine as on prior. No evident pneumothorax. Patient is ro tated. IMPRESSION: Interval intubation. Correlate for congestive heart failure with basilar effusions. Ther e may be mediastinal adenopathy, patient is rotated, follow-up suggested.
[2016-07-16] MEDS: PROPOFOL 500 MG in EMPTY BAG 1 BAG IV SCH ×5 (10:10→22:55)
[2016-07-16 10:11] LABS: Anisocytosis Slight; Basophils % (A) 0 %; CH 25.9; Eosinophils # (A) 0.5 k/uL (0-0.7); Eosinophils % (A) 4 %; HCT 22.5 % (39.0-53.0); HDW 3.48; Hypochromasia Marked; Luc # (Auto) 0.26; Luc % (Auto) 2; Lymphocytes # (A) 1.5 k/uL (1.0-4.8); Lymphocytes % (A) 12 %; MCH 26.3 pg (25.0-35.0); MCHC 29.4 g/dL (31.0-37.0); MCV 89.3 fL (80.0-100.0); Mean Platelet Volume 7.4; Monocytes # (A) 0.9 k/uL (0-1.0); Monocytes % (A) 7 %; Neutrophils # (A) 9.7 k/uL (1.3-7.7); Neutrophils % (A) 76 %; Poikilocytosis Slight; RBC 2.52 m/uL (4.30-5.90); RDW 18.2 % (11.5-15.5); WBC 12.9 k/uL (3.8-10.6); WBC (Perox) 11.88
[2016-07-16 10:13] LABS: HGB 6.6 gm/dL (13.0-17.5)
[2016-07-16 10:14] LABS: ALT 34 U/L (21-72); AST 23 U/L (17-59); Alkaline Phosphatase 61 U/L (38-126); Anion Gap 5 mmol/L; Blood Urea Nitrogen 33 mg/dL (9-20); Calcium 8.1 mg/dL (8.4-10.2); Carbon Dioxide 35 mmol/L (22-30); Chloride 96 mmol/L (98-107); Glucose 88 mg/dL (74-99); Non-African American GFR(MDRD) >60 (>60 ml/min/1.73 sqM); Sodium 136 mmol/L (137-145); Total Bilirubin 0.3 mg/dL (0.2-1.3); Total Protein 4.3 g/dL (6.3-8.2)
[2016-07-16 10:16] LABS: INR 1.3 (<1.1); Partial Thromboplastin Time 28.5 sec (22.0-30.0); Prothrombin Time 12.7 sec (9.0-12.0)
[2016-07-16 10:18] LABS: Amorphous Sediment,Urine Rare /hpf; Appearance,Urine Turbid (Clear); Bacteria,Urine Few /hpf; Bilirubin,Urine Negative (Negative); Glucose,Urine (UA) Negative (Negative); Ketones,Urine Negative (Negative); Leukocyte Esterase,Urine Large (Negative); Mucus,Urine Rare /hpf; Nitrite,Urine Negative (Negative); Particle Count 49093; Protein,Urine 2+ (Negative); RBC,Urine 26 /hpf (0-5); UA Billing (MACRO vs. MICRO) MICRO; Urobilinogen,Urine <2.0 mg/dL (<2.0); WBC,Urine 124 /hpf (0-5)
[2016-07-16 10:38] LABS: Creatine Kinase MB 0.5 ng/mL (0.0-2.4); Troponin I 0.018 ng/mL (0.000-0.034)
[2016-07-16] MEDS ORDERED: PANTOPRAZOLE 40 MG/10 ML VIAL IVP STA (10:44)
--- NOTE | 2016-07-16 11:30 | CT ---
EXAMINATION TYPE: CT brain wo con DATE OF EXAM: 07/16/2016 11:23 AM COMPARISON: Prior head CT June HISTORY: Unresponsive CT DLP: 1162.80 mGycm Automated exposure control for dose reduction was used. FINDINGS: There is no acute intracranial hemorrhage, mass effect, or midline shift identified. The ventricles and sulci are within normal limits in size. There are cerebral vascular calcifications. Cortical atr ophy, periventricular white matter demyelination changes are stable. The globes are intact and the vi sualized sinuses are remarkable for inflammatory change within the ethmoid air cells, frontoethmoidal region, sphenoid sinus and bilateral maxillary sinus. Endotracheal, NG tube are present. IMPRESSION: No acute intracranial hemorrhage, mass effect, or midline shift is seen. The brain is stable.
[2016-07-16 11:35] LABS: ABG Base Excess 9.1 mmol/L; ABG HCO3 34 mmol/L (21-25); ABG PCO2 57 mmHg (35-45); ABG PO2 97 mmHg (83-108); ABG TCO2 9 mmol/L (19-24)
[2016-07-16] MEDS ORDERED: SODIUM CHLORIDE 0.9% 1,000 ML IV SCH (12:15)
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
[2016-07-16] MEDS ORDERED: PROPOFOL 50 ML IV ONE (13:34)
[2016-07-16] MEDS: DAPTOmycin 500 MG in SODIUM CHLORIDE 0.9% 50 ML IV SCH (14:33)
[2016-07-16] MEDS: LEVOFLOXACIN 750MG-D5W PMX 750 MG in DEXTROSE/WATER 1 150ML.BAG IVPB SCH (14:33)
[2016-07-16] MEDS: SODIUM CHLORIDE 0.9% 1,000 ML IV SCH (14:36)
[2016-07-16] MEDS ORDERED: FUROSEMIDE 10 MG/ML 10 ML VIAL IV STA (14:43)
[2016-07-16 15:08] LABS: ABG HCO3 32 mmol/L (21-25); ABG PCO2 42 mmHg (35-45); ABG PO2 84 mmHg (83-108)
[2016-07-16 15:10] LABS: ABG Base Excess 8.5 mmol/L; ABG Oxygen Saturation 98.4 % (94-97)
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
[2016-07-16 17:23] LABS: Glucose,Whole Blood 105 mg/dL (75-99)
[2016-07-16] MEDS: IPRATROPIUM-ALBUTEROL 3 ML NEB INHALATION SCH ×2 (19:38→23:18)
[2016-07-16 21:33] LABS: Anisocytosis Slight; CH 26.3; CHCM 30.4; HCT 27.9 % (39.0-53.0); HDW 4.09; Hypochromasia Marked; MCH 26.3 pg (25.0-35.0); MCHC 30.3 g/dL (31.0-37.0); MCV 86.8 fL (80.0-100.0); Mean Platelet Volume 7.5; Poikilocytosis Moderate; RBC 3.21 m/uL (4.30-5.90); RDW 18.8 % (11.5-15.5); WBC 10.1 k/uL (3.8-10.6)
[2016-07-16 21:46] LABS: HGB 8.5 gm/dL (13.0-17.5)
[2016-07-16 22:02] LABS: ALT 42 U/L (21-72); AST 18 U/L (17-59); Alkaline Phosphatase 67 U/L (38-126); Anion Gap 8 mmol/L; Blood Urea Nitrogen 30 mg/dL (9-20); Calcium 8.6 mg/dL (8.4-10.2); Carbon Dioxide 33 mmol/L (22-30); Chloride 97 mmol/L (98-107); Glucose 77 mg/dL (74-99); Non-African American GFR(MDRD) >60 (>60 ml/min/1.73 sqM); Potassium 3.6 mmol/L (3.5-5.1); Sodium 138 mmol/L (137-145); Total Bilirubin 0.6 mg/dL (0.2-1.3); Total Protein 4.3 g/dL (6.3-8.2)
[2016-07-16] MEDS ORDERED: POTASSIUM CHLORIDE ORAL LIQUID 40 MEQ/30 ML CUP NG-TUBE SCH (23:00)
[2016-07-17] MEDS: IPRATROPIUM-ALBUTEROL 3 ML NEB INHALATION SCH ×6 (03:10→23:06)
[2016-07-17] MEDS: PROPOFOL 500 MG in EMPTY BAG 1 BAG IV SCH ×15 (03:18→23:14)
[2016-07-17] MEDS: SODIUM CHLORIDE 0.9% 1,000 ML IV SCH ×2 (03:48→09:11)
[2016-07-17 05:29] LABS: Anisocytosis Slight; Basophils % (A) 0 %; CH 26.3; CHCM 30.7; Eosinophils # (A) 0.9 k/uL (0-0.7); Eosinophils % (A) 9 %; HCT 28.4 % (39.0-53.0); HDW 3.84; HGB 8.7 gm/dL (13.0-17.5); Hypochromasia Marked; Luc # (Auto) 0.19; Luc % (Auto) 2; Lymphocytes # (A) 1.7 k/uL (1.0-4.8); Lymphocytes % (A) 17 %; MCH 26.3 pg (25.0-35.0); MCHC 30.5 g/dL (31.0-37.0); MCV 86.2 fL (80.0-100.0); Mean Platelet Volume 7.4; Monocytes # (A) 0.6 k/uL (0-1.0); Monocytes % (A) 6 %; Neutrophils # (A) 6.8 k/uL (1.3-7.7); Neutrophils % (A) 67 %; Poikilocytosis Slight; RBC 3.29 m/uL (4.30-5.90); RDW 18.8 % (11.5-15.5); WBC 10.1 k/uL (3.8-10.6); WBC (Perox) 10.03
[2016-07-17 05:35] LABS: ALT 39 U/L (21-72); AST 15 U/L (17-59); Alkaline Phosphatase 63 U/L (38-126); Anion Gap 6 mmol/L; Blood Urea Nitrogen 30 mg/dL (9-20); Calcium 8.6 mg/dL (8.4-10.2); Carbon Dioxide 33 mmol/L (22-30); Chloride 98 mmol/L (98-107); Glucose 71 mg/dL (74-99); Magnesium 1.6 mg/dL (1.6-2.3); Non-African American GFR(MDRD) >60 (>60 ml/min/1.73 sqM); Phosphorous 3.7 mg/dL (2.5-4.5); Potassium 3.8 mmol/L (3.5-5.1); Sodium 137 mmol/L (137-145); Total Bilirubin 0.5 mg/dL (0.2-1.3); Total Protein 4.2 g/dL (6.3-8.2)
[2016-07-17] MEDS: MAGNESIUM SULFATE-D5W PMX 1 GM in DEXTROSE/WATER 1 100ML.BAG IVPB SCH ×2 (06:52→07:56)
[2016-07-17] MEDS ORDERED: POTASSIUM CHLORIDE ORAL LIQUID 40 MEQ/30 ML CUP NG-TUBE SCH (07:00)
--- NOTE | 2016-07-17 07:45 | XR ---
EXAMINATION TYPE: XR chest 1V portable DATE OF EXAM: 07/17/2016 6:43 AM COMPARISON: 07/16/2016 HISTORY: Ventilatory dependent respiratory failure. TECHNIQUE: Single frontal view of the chest is obtained. FINDINGS: Enteric tube has been placed in the interim with its distal tip just below the gastroesoph ageal junction. Radiolucent portion is not visualized as thoracolumbar fusion device obscures visuali zation. Recommend advancement approximately 3 cm proximal placement. Endotracheal tube and right PICC are unchanged in position. Moderate pulmonary vascular congestion an d layering moderate right and small left pleural effusions with associated atelectasis are unchanged. Osseous structures appear intact. Heart size is again enlarged and unchanged. IMPRESSION: 1. Interval placement of an enteric tube, which could be advanced approximately 3 cm for optimal plac ement. 2. Redemonstration of moderate right pleural effusion and small lateral left pleural effusion with as sociated bibasilar atelectasis and moderate pulmonary vascular congestion. 3. Stable right PICC and endotracheal tube.
[2016-07-17] MEDS: CHLORHEXIDINE GLUCONATE 15 ML CUP MUCOUS MEM SCH ×2 (09:11→21:17)
[2016-07-17] MEDS: ENOXAPARIN 40 MG/0.4 ML SYRINGE SQ SCH (09:11)
[2016-07-17] MEDS: PANTOPRAZOLE 40 MG/10 ML VIAL IVP SCH (09:11)
[2016-07-17 09:14] LABS: ABG Base Excess 5.2 mmol/L; ABG HCO3 28 mmol/L (21-25); ABG Oxygen Saturation 98.1 % (94-97); ABG PCO2 36 mmHg (35-45); ABG PO2 96 mmHg (83-108); ABG TCO2 30 mmol/L (19-24)
[2016-07-17] MEDS: NOREPINEPHRIN 16 MG-0.9%NS PMX 16 MG/250 ML ML IV SCH (11:00)
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
[2016-07-17] MEDS: DAPTOmycin 500 MG in SODIUM CHLORIDE 0.9% 50 ML IV SCH (13:43)
--- NOTE | 2016-07-17 14:11 | PCN ---
DATE OF PROCEDURE: 07/16/2016 PROCEDURE: Placement of a right brachial arterial line. PREOPERATIVE DIAGNOSES: 1. Acute respiratory failure. 2. Hypotension. POSTOPERATIVE DIAGNOSES: 1. Acute respiratory failure. 2. Hypotension. ANESTHESIA USED: None deployed. PROCEDURE: Patient was placed in supine position. The right brachial region was prepared in a sterile fashion and drapes were applied. The right brachial artery was palpated, cannulated easily and a guidewire was placed. A Cook's catheter was inserted over the guidewire, and the guidewire was removed. Good blood flow and good waveform were noted. No evidence of any immediate complications. Line was secured using 3-0 silk sutures. Sterile dressing was applied.
[2016-07-17] MEDS ORDERED: FUROSEMIDE 10 MG/ML 4 ML VIAL IV STA (14:13)
[2016-07-17] MEDS: LEVOFLOXACIN 750MG-D5W PMX 750 MG in DEXTROSE/WATER 1 150ML.BAG IVPB SCH (14:30)
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
[2016-07-18] MEDS: PROPOFOL 500 MG in EMPTY BAG 1 BAG IV SCH ×8 (00:16→09:34)
[2016-07-18] MEDS: IPRATROPIUM-ALBUTEROL 3 ML NEB INHALATION SCH ×5 (03:06→19:46)
[2016-07-18 03:52] LABS: Anisocytosis Slight; CH 25.8; CHCM 29.2; HCT 31.3 % (39.0-53.0); HDW 3.63; HGB 9.4 gm/dL (13.0-17.5); Hypochromasia Marked; MCH 26.6 pg (25.0-35.0); MCV 88.7 fL (80.0-100.0); Mean Platelet Volume 7.4; Poikilocytosis Slight; RBC 3.53 m/uL (4.30-5.90); RDW 18.5 % (11.5-15.5)
[2016-07-18 03:58] LABS: Anion Gap 12 mmol/L; Blood Urea Nitrogen 20 mg/dL (9-20); Calcium 8.8 mg/dL (8.4-10.2); Carbon Dioxide 29 mmol/L (22-30); Chloride 98 mmol/L (98-107); Glucose 191 mg/dL (74-99); Magnesium 1.8 mg/dL (1.6-2.3); Non-African American GFR(MDRD) >60 (>60 ml/min/1.73 sqM); Phosphorous 4.7 mg/dL (2.5-4.5); Potassium 3.9 mmol/L (3.5-5.1); Sodium 139 mmol/L (137-145)
[2016-07-18] MEDS ORDERED: Potassium Replacement Protocol 1 EACH MISC MISCELLANE PRN (04:36)
[2016-07-18] MEDS ORDERED: Magnesium Replacement Protocol 1 EACH MISC MISCELLANE PRN (04:37)
[2016-07-18 04:44] LABS: Glucose,Whole Blood 193 mg/dL (75-99)
[2016-07-18] MEDS ORDERED: POTASSIUM CHLORIDE ORAL LIQUID 40 MEQ/30 ML CUP NG-TUBE SCH (05:00)
[2016-07-18] MEDS: MAGNESIUM SULFATE-D5W PMX 1 GM in DEXTROSE/WATER 1 100ML.BAG IVPB SCH ×2 (05:05→06:01)
[2016-07-18] MEDS: SODIUM CHLORIDE 0.9% 1,000 ML IV SCH (05:06)
[2016-07-18] MEDS ORDERED: INSULIN LISPRO (humaLOG) 300 UNIT/3 ML VIAL SQ SCH (07:30)
[2016-07-18] MEDS: PANTOPRAZOLE 40 MG/10 ML VIAL IVP SCH (07:39)
[2016-07-18] MEDS: CHLORHEXIDINE GLUCONATE 15 ML CUP MUCOUS MEM SCH ×2 (07:39→20:40)
[2016-07-18] MEDS: ENOXAPARIN 40 MG/0.4 ML SYRINGE SQ SCH (07:39)
[2016-07-18 08:07] LABS: Glucose,Whole Blood 209 mg/dL (75-99)
[2016-07-18 08:12] LABS: ABG Base Excess -1.2 mmol/L; ABG HCO3 23 mmol/L (21-25); ABG PCO2 38 mmHg (35-45); ABG PO2 105 mmHg (83-108); ABG TCO2 24 mmol/L (19-24)
[2016-07-18] MEDS: INSULIN LISPRO (humaLOG) 300 UNIT/3 ML VIAL SQ SCH ×4 (08:16→20:39)
[2016-07-18] MEDS: NOREPINEPHRIN 16 MG-0.9%NS PMX 16 MG/250 ML ML IV SCH (09:33)
[2016-07-18 10:39] LABS: Hemoglobin A1C 6.1 % (4.2-6.1)
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
[2016-07-18] MEDS: FUROSEMIDE 10 MG/ML 4 ML VIAL ONE (11:31)
--- NOTE | 2016-07-18 11:44 | CDI ---
In responding to this query, please exercise your independent professional judgment. The [facility] Coding Staff and Clinical Documentation Specialists appreciate your assistance in clarifying documentation, maintaining compliance with coding guidelines, accurately documenting patients condition and capturing severity of illness. The fact that a question is asked does not imply that any particular answer is desired or expected. Communication forms are a method of clarifying documentation and are not made part of the Legal Health Record. Thank you in advance for your clarification. Last Revision, May 2016 Celeste Lima [address] [place] [address] Documentation Clarification Form Date: 07/18/2016 11:27:00 AM From: Alexandra Armando RN, CCDS Admit Date: 07/16/2016 12:01:00 PM Patient Name: Cory Zaragoza Visit Number: [id number] Dr. Kevin Sidhu CHF is documented in the Progress Notes and requires further specificity. History/Risk Factors: CHF, Morbid Obesity with hypoventilation syndrome, Anemia with Hgb of 6.6, Sepsis with septic shock Clinical Indicators: 07/17 Pulmonary Progress Note: " Chest x- ray continues to show evidence of bilateral pleural effusions and congestive heart failure in spite of significant diuresis overnight with Lasix." VS/Pulse OX: Temp 97.5, Hr 63, RR 18, B/P 85/51, spo2 100% on 100% MV BNP: 326 06/13/16 Echocardiogram Results: EF 55-60%, severe concentric LVH, mild aortic regurgitation 07/17 Chest X Ray: "IMPRESSION: Redemonstration of moderate right pleural effusion and small lateral left pleural effusion with associated bibasilar atelectasis and moderate pulmonary vascular congestion. Stable right PICC and endotracheal tube. Treatment: Lasix 60mg IVP OT, followed by 40mg IVP OT In your professional opinion, can you please clarify the acuity and type of CHF if known? Systolic Heart Failure: Acute Chronic Acute on Chronic Diastolic Heart Failure: Acute Chronic Acute on Chronic Systolic & Diastolic Heart Failure: Acute Chronic Acute on Chronic Unable to determine Other, please specify Please document in your progress notes and discharge summary in order to capture severity of illness and risk of mortality. Include clinical findings that support your diagnosis. FYI: Press F11 to launch patient chart. Place X here if this finding has no clinical significance, is not applicable or if you are not able to provide any additional documentation. MTDD
[2016-07-18 11:46] LABS: Glucose,Whole Blood 172 mg/dL (75-99)
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
[2016-07-18] MEDS: HYDROcodone/APAP 5-325MG 1 EACH TAB PO PRN (13:48)
[2016-07-18] MEDS: DAPTOmycin 500 MG in SODIUM CHLORIDE 0.9% 50 ML IV SCH (13:53)
[2016-07-18] MEDS: LEVOFLOXACIN 750MG-D5W PMX 750 MG in DEXTROSE/WATER 1 150ML.BAG IVPB SCH (13:53)
[2016-07-18 15:18] LABS: Glucose,Whole Blood 125 mg/dL (75-99)
[2016-07-18 20:06] LABS: Glucose,Whole Blood 98 mg/dL (75-99)
[2016-07-18] MEDS: INSULIN DETEMIR 100 UNIT/ML 10 ML VIAL SQ SCH (20:45)
[2016-07-18] MEDS ORDERED: TOBRAMYCIN PER PHARMACY MISCELLANE PRN (23:03)
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
[2016-07-19] MEDS: TOBRAMYCIN SULFATE IVPB SCH ×3 (00:14→14:42)
[2016-07-19] MEDS: SODIUM CHLORIDE 0.9% IVPB SCH ×3 (00:14→14:42)
[2016-07-19] MEDS: ALPRAZolam 0.25 MG TAB PO PRN ×3 (00:14→17:44)
[2016-07-19] MEDS: INSULIN LISPRO (humaLOG) 300 UNIT/3 ML VIAL SQ SCH ×5 (00:23→21:29)
[2016-07-19 00:24] LABS: Glucose,Whole Blood 93 mg/dL (75-99)
[2016-07-19] MEDS: SODIUM CHLORIDE 0.9% 1,000 ML IV SCH ×3 (01:58→15:07)
[2016-07-19 05:00] LABS: Anisocytosis Slight; CHCM 29.8; HDW 3.65; Hypochromasia Marked; MCHC 30.9 g/dL (31.0-37.0); MCV 87.2 fL (80.0-100.0); Mean Platelet Volume 7.8; Poikilocytosis Slight; RBC 3.32 m/uL (4.30-5.90); WBC 11.5 k/uL (3.8-10.6)
[2016-07-19 05:23] LABS: Anion Gap 5 mmol/L; Blood Urea Nitrogen 13 mg/dL (9-20); Calcium 8.9 mg/dL (8.4-10.2); Carbon Dioxide 37 mmol/L (22-30); Chloride 100 mmol/L (98-107); Glucose 65 mg/dL (74-99); Magnesium 1.8 mg/dL (1.6-2.3); Non-African American GFR(MDRD) >60 (>60 ml/min/1.73 sqM); Phosphorous 4.5 mg/dL (2.5-4.5); Potassium 3.5 mmol/L (3.5-5.1); Sodium 142 mmol/L (137-145)
[2016-07-19] MEDS ORDERED: Magnesium Replacement Protocol 1 EACH MISC MISCELLANE PRN (05:47)
[2016-07-19] MEDS ORDERED: Potassium Replacement Protocol 1 EACH MISC MISCELLANE PRN ×3 (05:47→20:52)
[2016-07-19 05:54] LABS: Glucose,Whole Blood 59 mg/dL (75-99)
[2016-07-19] MEDS: HYDROcodone/APAP 5-325MG 1 EACH TAB PO PRN ×3 (05:57→21:29)
[2016-07-19 06:20] LABS: Glucose,Whole Blood 64 mg/dL (75-99)
[2016-07-19] MEDS ORDERED: POTASSIUM CHLORIDE 20 MEQ in WATER FOR INJECTION 1 100ML.BAG IVPB ONE ×2 (06:30→22:00)
[2016-07-19 06:43] LABS: Glucose,Whole Blood 71 mg/dL (75-99)
[2016-07-19] MEDS: MAGNESIUM SULFATE-D5W PMX 1 GM in DEXTROSE/WATER 1 100ML.BAG IVPB SCH ×2 (06:53→07:53)
[2016-07-19 07:40] LABS: Glucose,Whole Blood 82 mg/dL (75-99)
--- NOTE | 2016-07-19 08:08 | XR ---
EXAMINATION TYPE: XR chest 1V portable DATE OF EXAM: 07/19/2016 7:05 AM Comparison: 07/18/2016 Clinical History: 66 year-old male tube placement Findings: Interval extubation and removal of NG tube. The right PICC line has flipped into the left brachioceph alic vein in the interval. The heart remains mild to moderately enlarged with diffuse interstitial de nsities and patchy airspace opacities in the right greater than left mid to lower lungs. [id number] erate right and small left pleural effusions persist. Lower thoracolumbar fusion hardware partially s een. Impression: 1. Note that the patient's right PICC line has flipped up into the left brachiocephalic vein. 2. Continued CHF with interstitial pulmonary edema. 3. Small to moderate right and small left pleural effusions with adjacent atelectasis and/or consolid ation, similar to prior.
[2016-07-19] MEDS: INSULIN DETEMIR 100 UNIT/ML 10 ML VIAL SQ SCH ×2 (08:11→21:29)
[2016-07-19] MEDS: ENOXAPARIN 60 MG/0.6 ML SYRINGE SQ SCH (08:11)
[2016-07-19] MEDS: PANTOPRAZOLE 40 MG/10 ML VIAL IVP SCH (08:11)
[2016-07-19] MEDS: LISINOPRIL 20 MG TAB PO SCH (08:12)
[2016-07-19] MEDS: IPRATROPIUM-ALBUTEROL 3 ML NEB INHALATION SCH ×4 (08:16→20:07)
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
[2016-07-19] MEDS ORDERED: FUROSEMIDE 10 MG/ML 4 ML VIAL IV STA (10:15)
[2016-07-19 10:36] LABS: Magnesium 2.1 mg/dL (1.6-2.3); Potassium 3.6 mmol/L (3.5-5.1)
[2016-07-19] MEDS: FUROSEMIDE 10 MG/ML 4 ML VIAL ONE (10:54)
[2016-07-19 11:14] LABS: Glucose,Whole Blood 123 mg/dL (75-99)
--- NOTE | 2016-07-19 11:19 | XR ---
EXAMINATION TYPE: XR chest 1V portable DATE OF EXAM: 07/18/2016 6:49 AM COMPARISON: 07/17/2016 HISTORY: SOB, Follow Up FINDINGS: Indwelling tubes and catheters are unchanged. No change in bibasilar opacities. Stable appearance of the cardio-mediastinal structures at this time. Pleural effusion unchanged. IMPRESSION: 1. Stable portable chest. Clinical correlation and follow up until resolution is recommended.
[2016-07-19] MEDS: POTASSIUM CHLORIDE 10 MEQ in WATER FOR INJECTION 1 100ML.BAG IVPB SCH ×2 (11:23→13:08)
[2016-07-19] MEDS: DAPTOmycin 500 MG in SODIUM CHLORIDE 0.9% 50 ML IV SCH (13:17)
[2016-07-19] MEDS: LEVOFLOXACIN 750MG-D5W PMX 750 MG in DEXTROSE/WATER 1 150ML.BAG IVPB SCH (13:21)
[2016-07-19] MEDS: POTASSIUM CHLORIDE 10 MEQ, LIDOCAINE 2% INJ 10 MG in SODIUM CHLORIDE 0.9% 100 ML IV SCH ×2 (16:39→17:44)
[2016-07-19 16:47] LABS: Glucose,Whole Blood 110 mg/dL (75-99)
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
[2016-07-19] MEDS ORDERED: MELATONIN 3 MG TABLET PO PRN (20:34)
[2016-07-19 21:04] LABS: Glucose,Whole Blood 166 mg/dL (75-99)
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
[2016-07-20] MEDS: SODIUM CHLORIDE 0.9% IVPB SCH ×2 (00:05→07:53)
[2016-07-20] MEDS: ALPRAZolam 0.25 MG TAB PO PRN (00:05)
[2016-07-20] MEDS: TOBRAMYCIN SULFATE IVPB SCH ×2 (00:05→07:53)
[2016-07-20 05:03] LABS: Anisocytosis Slight; CH 25.4; CHCM 28.6; HCT 30.3 % (39.0-53.0); HDW 3.34; HGB 9.1 gm/dL (13.0-17.5); Hypochromasia Marked; MCH 26.6 pg (25.0-35.0); MCHC 29.9 g/dL (31.0-37.0); MCV 88.8 fL (80.0-100.0); Mean Platelet Volume 7.5; RBC 3.41 m/uL (4.30-5.90); RDW 18.2 % (11.5-15.5); WBC 14.3 k/uL (3.8-10.6)
[2016-07-20 05:19] LABS: Anion Gap 6 mmol/L; Blood Urea Nitrogen 10 mg/dL (9-20); Carbon Dioxide 38 mmol/L (22-30); Chloride 95 mmol/L (98-107); Glucose 115 mg/dL (74-99); Magnesium 1.8 mg/dL (1.6-2.3); Non-African American GFR(MDRD) >60 (>60 ml/min/1.73 sqM); Phosphorous 4.2 mg/dL (2.5-4.5); Potassium 3.7 mmol/L (3.5-5.1); Sodium 139 mmol/L (137-145)
[2016-07-20] MEDS ORDERED: Magnesium Replacement Protocol 1 EACH MISC MISCELLANE PRN (05:23)
[2016-07-20] MEDS ORDERED: Potassium Replacement Protocol 1 EACH MISC MISCELLANE PRN (05:23)
[2016-07-20] MEDS: MAGNESIUM SULFATE-D5W PMX 1 GM in DEXTROSE/WATER 1 100ML.BAG IVPB SCH ×2 (05:56→07:53)
[2016-07-20] MEDS ORDERED: POTASSIUM CHLORIDE 20 MEQ in WATER FOR INJECTION 1 100ML.BAG IVPB ONE (06:00)
[2016-07-20] MEDS ORDERED: TOBRAMYCIN TROUGH DUE 1 EACH MISC MISCELLANE ONE (06:30)
--- NOTE | 2016-07-20 07:27 | XR ---
EXAMINATION TYPE: XR chest 1V portable DATE OF EXAM: 07/20/2016 6:59 AM COMPARISON: 07/19/2016 HISTORY: Tube placement TECHNIQUE: Single frontal view of the chest is obtained. FINDINGS: Diffuse interstitial pattern seen with bilateral infiltrate and pleural effusion. Postsurg ical change involving the vertebral column. No pneumothorax. PICC line with the tip overlying the rig ht atrium. IMPRESSION: 1. Diffuse pleural-parenchymal disease is stable correlate for CHF or diffuse pneumonia.
[2016-07-20 07:31] LABS: Glucose,Whole Blood 110 mg/dL (75-99)
[2016-07-20] MEDS: ENOXAPARIN 60 MG/0.6 ML SYRINGE SQ SCH (07:53)
[2016-07-20] MEDS: INSULIN LISPRO (humaLOG) 300 UNIT/3 ML VIAL SQ SCH ×4 (07:53→22:26)
[2016-07-20] MEDS: SODIUM CHLORIDE 0.9% 1,000 ML IV SCH (07:53)
[2016-07-20] MEDS: LISINOPRIL 20 MG TAB PO SCH (07:54)
[2016-07-20] MEDS: PANTOPRAZOLE 40 MG/10 ML VIAL IVP SCH (07:54)
[2016-07-20] MEDS: HYDROcodone/APAP 5-325MG 1 EACH TAB PO PRN (07:58)
[2016-07-20] MEDS: IPRATROPIUM-ALBUTEROL 3 ML NEB INHALATION SCH ×4 (08:46→19:27)
[2016-07-20] MEDS: INSULIN DETEMIR 100 UNIT/ML 10 ML VIAL SQ SCH ×2 (08:55→22:26)
[2016-07-20] MEDS ORDERED: TOBRAMYCIN PEAK DUE 1 EACH MISC MISCELLANE ONE (09:00)
[2016-07-20] MEDS ORDERED: FUROSEMIDE 10 MG/ML 4 ML VIAL IV STA (09:56)
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
[2016-07-20] MEDS: DAPTOmycin 500 MG in SODIUM CHLORIDE 0.9% 50 ML IV SCH (12:39)
[2016-07-20] MEDS: LEVOFLOXACIN 750MG-D5W PMX 750 MG in DEXTROSE/WATER 1 150ML.BAG IVPB SCH (12:40)
[2016-07-20 12:49] LABS: Glucose,Whole Blood 113 mg/dL (75-99)
[2016-07-20] MEDS: POTASSIUM CHLORIDE ER 20 MEQ TAB.ER PO SCH ×2 (15:27→15:54)
[2016-07-20 16:49] LABS: ABG HCO3 40 mmol/L (21-25); ABG PCO2 73 mmHg (35-45); ABG PH 7.36 (7.35-7.45); ABG PO2 61 mmHg (83-108); ABG TCO2 43 mmol/L (19-24)
[2016-07-20 16:50] LABS: ABG Base Excess 14.3 mmol/L; ABG Oxygen Saturation 88.8 % (94-97)
[2016-07-20 17:22] LABS: Glucose,Whole Blood 127 mg/dL (75-99)
[2016-07-20 20:25] LABS: Glucose,Whole Blood 121 mg/dL (75-99)
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
[2016-07-20] MEDS: ACETAMINOPHEN TAB 325 MG TAB PO PRN (23:10)
[2016-07-21 04:26] LABS: Anisocytosis Slight; CH 25.2; CHCM 28.4; HCT 29.1 % (39.0-53.0); HGB 8.6 gm/dL (13.0-17.5); Hypochromasia Marked; MCH 26.3 pg (25.0-35.0); MCHC 29.7 g/dL (31.0-37.0); MCV 88.6 fL (80.0-100.0); Mean Platelet Volume 7.7; RBC 3.28 m/uL (4.30-5.90); RDW 17.8 % (11.5-15.5); WBC 12.4 k/uL (3.8-10.6)
[2016-07-21 04:49] LABS: Blood Urea Nitrogen 12 mg/dL (9-20); Calcium 9.1 mg/dL (8.4-10.2); Chloride 94 mmol/L (98-107); Glucose 96 mg/dL (74-99); Magnesium 2.1 mg/dL (1.6-2.3); Non-African American GFR(MDRD) >60 (>60 ml/min/1.73 sqM); Phosphorous 3.2 mg/dL (2.5-4.5); Potassium 3.8 mmol/L (3.5-5.1); Sodium 139 mmol/L (137-145)
[2016-07-21 04:56] LABS: Anion Gap 5 mmol/L
[2016-07-21 05:00] LABS: Carbon Dioxide 40 mmol/L (22-30)
[2016-07-21] MEDS ORDERED: HYDROcodone/APAP 5-325MG 1 EACH TAB PO PRN (05:35)
[2016-07-21] MEDS: HYDROmorphone 1 MG/ML 1 ML SYRINGE IVP PRN ×3 (05:53→18:40)
[2016-07-21] MEDS ORDERED: POTASSIUM CHLORIDE ER 20 MEQ TAB.ER PO SCH (06:00)
--- NOTE | 2016-07-21 07:16 | XR ---
EXAMINATION TYPE: XR chest 1V portable DATE OF EXAM: 07/21/2016 6:47 AM COMPARISON: Prior chest x-ray 20 Jul 2016 HISTORY: Abnormal chest x-ray TECHNIQUE: Single frontal view of the chest is obtained. FINDINGS: Right-sided PICC line is present with the distal tip overlying the cavoatrial junction. Sp inal fixation hardware is stable. Heart is enlarged. Bibasilar increased density persists. There is n o evident pneumothorax. Central vascularity and interstitium are prominent. IMPRESSION: Similar to prior exam, correlate to exclude congestive heart failure, pneumonia. There m ay be basilar effusions.
[2016-07-21] MEDS: IPRATROPIUM-ALBUTEROL 3 ML NEB INHALATION SCH ×4 (07:51→19:46)
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
[2016-07-21] MEDS: INSULIN LISPRO (humaLOG) 300 UNIT/3 ML VIAL SQ SCH ×4 (08:08→21:17)
[2016-07-21 08:09] LABS: Glucose,Whole Blood 84 mg/dL (75-99)
[2016-07-21] MEDS: SODIUM CHLORIDE 0.9% 1,000 ML IV SCH (08:19)
[2016-07-21] MEDS: ENOXAPARIN 60 MG/0.6 ML SYRINGE SQ SCH (08:19)
[2016-07-21] MEDS: LISINOPRIL 20 MG TAB PO SCH (08:20)
[2016-07-21] MEDS: PANTOPRAZOLE 40 MG/10 ML VIAL IVP SCH (08:21)
[2016-07-21] MEDS: SODIUM CHLORIDE 0.9% IVPB SCH (08:21)
[2016-07-21] MEDS: TOBRAMYCIN SULFATE IVPB SCH (08:21)
[2016-07-21] MEDS: INSULIN DETEMIR 100 UNIT/ML 10 ML VIAL SQ SCH (09:39)
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
[2016-07-21 12:56] LABS: Glucose,Whole Blood 118 mg/dL (75-99)
[2016-07-21] MEDS: DAPTOmycin 500 MG in SODIUM CHLORIDE 0.9% 50 ML IV SCH (12:57)
[2016-07-21] MEDS: LEVOFLOXACIN 750 MG TAB PO SCH (12:58)
[2016-07-21] MEDS: ACETAMINOPHEN TAB 325 MG TAB PO PRN (16:36)
[2016-07-21 17:23] LABS: Glucose,Whole Blood 133 mg/dL (75-99)
[2016-07-21 20:54] LABS: Glucose,Whole Blood 155 mg/dL (75-99)
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
[2016-07-22] MEDS: HYDROmorphone 1 MG/ML 1 ML SYRINGE IVP PRN ×2 (00:53→20:11)
[2016-07-22 07:23] LABS: Anisocytosis Slight; CHCM 27.4; HCT 32.8 % (39.0-53.0); HDW 3.37; HGB 9.4 gm/dL (13.0-17.5); Hypochromasia Marked; MCH 26.2 pg (25.0-35.0); MCHC 28.7 g/dL (31.0-37.0); MCV 91.1 fL (80.0-100.0); RDW 17.6 % (11.5-15.5)
--- NOTE | 2016-07-22 07:24 | XR ---
EXAMINATION TYPE: XR chest 1V portable DATE OF EXAM: 07/22/2016 7:04 AM HISTORY: Shortness of breath. COMPARISON: 07/21/2016 TECHNIQUE: Single view of the chest is submitted. FINDINGS: Demonstrated are scattered senescent parenchymal change. Bilateral right greater than left patchy infiltrates persist throughout both lung iraheta. Small left basilar effusions are noted as well. Right-sided PICC line. The heart is stable. Hilar and mediastinal structures are within normal limits. Degenerative changes are seen of the dorsal spine. IMPRESSION: 1. Findings suggest progressive infiltrates. Correlate clinically and progress studies are recommend ed.
[2016-07-22] MEDS ORDERED: TOBRAMYCIN TROUGH DUE 1 EACH MISC MISCELLANE ONE (08:00)
[2016-07-22] MEDS ORDERED: GENTAMICIN TROUGH DUE 1 EACH MISC MISCELLANE ONE (08:00)
[2016-07-22 08:01] LABS: Anion Gap 5 mmol/L; Blood Urea Nitrogen 15 mg/dL (9-20); Calcium 9.5 mg/dL (8.4-10.2); Chloride 96 mmol/L (98-107); Glucose 150 mg/dL (74-99); Non-African American GFR(MDRD) >60 (>60 ml/min/1.73 sqM); Potassium 4.1 mmol/L (3.5-5.1); Sodium 141 mmol/L (137-145)
[2016-07-22 08:02] LABS: Glucose,Whole Blood 145 mg/dL (75-99)
[2016-07-22 08:03] LABS: Carbon Dioxide 40 mmol/L (22-30)
[2016-07-22] MEDS: IPRATROPIUM-ALBUTEROL 3 ML NEB INHALATION SCH ×4 (08:37→19:35)
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
[2016-07-22] MEDS: PANTOPRAZOLE 40 MG TABLET PO SCH (09:29)
[2016-07-22] MEDS: ENOXAPARIN 60 MG/0.6 ML SYRINGE SQ SCH (09:29)
[2016-07-22] MEDS: LISINOPRIL 20 MG TAB PO SCH (09:30)
[2016-07-22] MEDS: SODIUM CHLORIDE 0.9% 1,000 ML IV SCH (09:30)
[2016-07-22] MEDS: INSULIN LISPRO (humaLOG) 300 UNIT/3 ML VIAL SQ SCH ×4 (09:31→21:42)
[2016-07-22] MEDS: INSULIN DETEMIR 100 UNIT/ML 10 ML VIAL SQ SCH ×3 (09:39→21:42)
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
[2016-07-22] MEDS: TOBRAMYCIN SULFATE IVPB SCH (10:33)
[2016-07-22] MEDS: SODIUM CHLORIDE 0.9% IVPB SCH (10:33)
[2016-07-22] MEDS: ACETAMINOPHEN TAB 325 MG TAB PO PRN ×2 (10:38→23:46)
[2016-07-22 11:55] LABS: Glucose,Whole Blood 160 mg/dL (75-99)
[2016-07-22] MEDS: DAPTOmycin 500 MG in SODIUM CHLORIDE 0.9% 50 ML IV SCH (12:22)
[2016-07-22] MEDS: LEVOFLOXACIN 750 MG TAB PO SCH (12:23)
[2016-07-22 17:05] LABS: Glucose,Whole Blood 196 mg/dL (75-99)
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
[2016-07-22 21:43] LABS: Glucose,Whole Blood 188 mg/dL (75-99)
[2016-07-23] MEDS: HYDROmorphone 1 MG/ML 1 ML SYRINGE IVP PRN ×2 (02:55→10:48)
[2016-07-23 04:51] LABS: Anisocytosis Slight; CH 25.3; CHCM 27.9; HCT 30.6 % (39.0-53.0); HDW 3.33; HGB 8.8 gm/dL (13.0-17.5); Hypochromasia Marked; MCH 26.2 pg (25.0-35.0); MCHC 28.9 g/dL (31.0-37.0); MCV 90.6 fL (80.0-100.0); Mean Platelet Volume 6.9; RBC 3.37 m/uL (4.30-5.90); RDW 17.8 % (11.5-15.5); WBC 10.1 k/uL (3.8-10.6)
[2016-07-23 05:04] LABS: Blood Urea Nitrogen 17 mg/dL (9-20); Calcium 9.2 mg/dL (8.4-10.2); Chloride 96 mmol/L (98-107); Glucose 92 mg/dL (74-99); Magnesium 2.1 mg/dL (1.6-2.3); Non-African American GFR(MDRD) >60 (>60 ml/min/1.73 sqM); Phosphorous 2.5 mg/dL (2.5-4.5); Potassium 3.7 mmol/L (3.5-5.1); Sodium 142 mmol/L (137-145)
[2016-07-23] MEDS: ACETAMINOPHEN TAB 325 MG TAB PO PRN ×3 (05:08→17:49)
[2016-07-23 05:10] LABS: Anion Gap 6 mmol/L
[2016-07-23 05:18] LABS: Carbon Dioxide 40 mmol/L (22-30)
[2016-07-23] MEDS ORDERED: Potassium Replacement Protocol 1 EACH MISC MISCELLANE PRN (05:27)
[2016-07-23] MEDS: POTASSIUM CHLORIDE 10 MEQ in WATER FOR INJECTION 1 100ML.BAG IVPB SCH ×2 (06:01→09:04)
[2016-07-23 07:56] LABS: Glucose,Whole Blood 77 mg/dL (75-99)
[2016-07-23] MEDS: IPRATROPIUM-ALBUTEROL 3 ML NEB INHALATION SCH ×4 (08:43→19:55)
[2016-07-23] MEDS: INSULIN LISPRO (humaLOG) 300 UNIT/3 ML VIAL SQ SCH ×3 (09:04→17:50)
[2016-07-23] MEDS: PANTOPRAZOLE 40 MG TABLET PO SCH (09:04)
[2016-07-23] MEDS: ENOXAPARIN 60 MG/0.6 ML SYRINGE SQ SCH (09:05)
[2016-07-23] MEDS: LISINOPRIL 20 MG TAB PO SCH (09:05)
[2016-07-23] MEDS: SODIUM CHLORIDE 0.9% IVPB SCH (09:11)
[2016-07-23] MEDS: TOBRAMYCIN SULFATE IVPB SCH (09:11)
[2016-07-23] MEDS: INSULIN DETEMIR 100 UNIT/ML 10 ML VIAL SQ SCH (09:12)
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
[2016-07-23] MEDS: SODIUM CHLORIDE 0.9% 1,000 ML IV SCH (10:48)
[2016-07-23 13:03] LABS: Glucose,Whole Blood 135 mg/dL (75-99)
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
[2016-07-23] MEDS: LEVOFLOXACIN 750 MG TAB PO SCH (15:46)
[2016-07-23 17:32] LABS: Glucose,Whole Blood 147 mg/dL (75-99)
[2016-07-23] MEDS ORDERED: ACETAMINOPHEN TAB 325 MG TAB ONE (21:00)
[2016-07-23] MEDS ORDERED: PROPOFOL 10 MG/ML 50 ML VIAL IV ONE (21:00)
[2016-07-23] MEDS ORDERED: HYDROmorphone 1 MG/ML 1 ML SYRINGE ONE (21:00)
[2016-07-23] MEDS ORDERED: INSULIN DETEMIR 100 UNIT/ML 10 ML VIAL SQ ONE (21:00)
[2016-07-23 23:06] LABS: Glucose,Whole Blood 153 mg/dL (75-99)
[2016-07-24] MEDS: INSULIN DETEMIR 100 UNIT/ML 10 ML VIAL SQ SCH ×3 (06:07→21:04)
[2016-07-24] MEDS: INSULIN LISPRO (humaLOG) 300 UNIT/3 ML VIAL SQ SCH ×5 (06:07→21:13)
[2016-07-24 06:17] LABS: Glucose,Whole Blood 137 mg/dL (75-99)
[2016-07-24] MEDS: PANTOPRAZOLE 40 MG TABLET PO SCH (06:57)
[2016-07-24] MEDS: IPRATROPIUM-ALBUTEROL 3 ML NEB INHALATION SCH ×5 (07:54→19:47)
[2016-07-24 08:04] LABS: Anisocytosis Slight; CH 24.8; CHCM 27.6; HCT 31.9 % (39.0-53.0); HDW 3.42; HGB 9.2 gm/dL (13.0-17.5); Hypochromasia Marked; MCH 25.9 pg (25.0-35.0); MCHC 28.9 g/dL (31.0-37.0); MCV 89.7 fL (80.0-100.0); Mean Platelet Volume 6.9; Poikilocytosis Slight; RBC 3.55 m/uL (4.30-5.90); RDW 17.7 % (11.5-15.5); WBC 12.9 k/uL (3.8-10.6)
[2016-07-24] MEDS: SODIUM CHLORIDE 0.9% 1,000 ML IV SCH (08:17)
[2016-07-24] MEDS: HYDROmorphone 1 MG/ML 1 ML SYRINGE IVP PRN (08:17)
[2016-07-24] MEDS: ENOXAPARIN 60 MG/0.6 ML SYRINGE SQ SCH (08:17)
[2016-07-24] MEDS: LISINOPRIL 20 MG TAB PO SCH (08:17)
[2016-07-24] MEDS: TOBRAMYCIN SULFATE IVPB SCH (08:17)
[2016-07-24] MEDS: SODIUM CHLORIDE 0.9% IVPB SCH (08:17)
[2016-07-24 08:32] LABS: Blood Urea Nitrogen 15 mg/dL (9-20); Calcium 9.4 mg/dL (8.4-10.2); Carbon Dioxide 38 mmol/L (22-30); Glucose 132 mg/dL (74-99); Magnesium 1.9 mg/dL (1.6-2.3); Non-African American GFR(MDRD) >60 (>60 ml/min/1.73 sqM); Phosphorous 3.1 mg/dL (2.5-4.5); Potassium 4.1 mmol/L (3.5-5.1); Sodium 138 mmol/L (137-145)
[2016-07-24 08:40] LABS: Anion Gap 6 mmol/L; Chloride 94 mmol/L (98-107)
[2016-07-24 12:22] LABS: Glucose,Whole Blood 164 mg/dL (75-99)
[2016-07-24] MEDS: DAPTOmycin 500 MG in SODIUM CHLORIDE 0.9% 50 ML IV SCH (12:22)
[2016-07-24] MEDS: LEVOFLOXACIN 750 MG TAB PO SCH (12:23)
[2016-07-24] MEDS ORDERED: FUROSEMIDE 10 MG/ML 4 ML VIAL IV STA (14:48)
[2016-07-24 15:05] LABS: ABG PH 7.15 (7.35-7.45)
[2016-07-24] MEDS: NALOXONE 0.4 MG/ML 1 ML VIAL IV PRN ×2 (15:05→15:10)
[2016-07-24 15:06] LABS: ABG HCO3 37 mmol/L (21-25); ABG PCO2 109 mmHg (35-45); ABG PO2 62 mmHg (83-108); ABG TCO2 40 mmol/L (19-24)
--- NOTE | 2016-07-24 15:11 | XR ---
EXAMINATION TYPE: XR chest 1V portable DATE OF EXAM: 07/24/2016 3:04 PM COMPARISON: 07/22/2016 HISTORY: Hypoxemia TECHNIQUE: Single frontal view of the chest is obtained. FINDINGS: There is pulmonary vascular congestion. Heart appears enlarged. There are chest leads. The re is pulmonary edema. IMPRESSION: Congestive heart failure with pulmonary edema and pleural effusions. No change compared to 07/22/2016. RDS cannot be excluded.
[2016-07-24 15:34] LABS: Glucose,Whole Blood 138 mg/dL (75-99)
[2016-07-24 15:57] LABS: ABG PCO2 97 mmHg (35-45); ABG PO2 69 mmHg (83-108)
[2016-07-24 15:58] LABS: ABG Base Excess 8.5 mmol/L; ABG HCO3 36 mmol/L (21-25); ABG TCO2 39 mmol/L (19-24)
[2016-07-24 16:36] LABS: Glucose,Whole Blood 150 mg/dL (75-99)
[2016-07-24 19:43] LABS: ABG Base Excess 9.1 mmol/L; ABG HCO3 37 mmol/L (21-25); ABG PCO2 106 mmHg (35-45); ABG PH 7.18 (7.35-7.45); ABG PO2 67 mmHg (83-108); ABG TCO2 41 mmol/L (19-24)
[2016-07-24] MEDS: PROPOFOL 500 MG in EMPTY BAG 1 BAG IV SCH ×2 (20:39→23:15)
--- NOTE | 2016-07-24 20:51 | XR ---
EXAMINATION TYPE: XR chest 1V portable DATE OF EXAM: 07/24/2016 8:43 PM COMPARISON: Today HISTORY: Hypoxemia TECHNIQUE: Single frontal view of the chest is obtained. FINDINGS: There is pulmonary edema. Endotracheal tube is in good position. There is right central ve nous catheter with the tip over the right atrium. There is nasogastric tube. There are chest leads. T here is blunting of right costophrenic angle. CONCLUSION: Endotracheal tube and nasogastric tube are in good position. Pulmonary edema consistent with congesti ve heart failure. Right pleural effusion. Heart and lungs are unchanged compared to exam earlier toda y at 3:00 PM.
[2016-07-24 20:54] LABS: Glucose,Whole Blood 134 mg/dL (75-99)
[2016-07-24] MEDS ORDERED: SODIUM CHLORIDE 0.9% 1,000 ML IV ONE (21:12)
[2016-07-24] MEDS: CHLORHEXIDINE GLUCONATE 15 ML CUP MUCOUS MEM SCH (21:13)
[2016-07-24] MEDS: PROPOFOL 50 ML IV ONE (21:14)
[2016-07-24 21:59] LABS: ABG Base Excess 9.1 mmol/L; ABG HCO3 33 mmol/L (21-25); ABG PCO2 47 mmHg (35-45); ABG PH 7.47 (7.35-7.45); ABG PO2 71 mmHg (83-108); ABG TCO2 35 mmol/L (19-24)
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
[2016-07-24] MEDS ORDERED: EMPTY BAG 1 BAG ONE (23:14)
[2016-07-24] MEDS: IPRATROPIUM-ALBUTEROL 3 ML NEB INHALATION PRN (23:37)
[2016-07-25] MEDS ORDERED: EMPTY BAG 1 BAG ONE ×7 (00:49→14:37)
[2016-07-25] MEDS: PROPOFOL 500 MG in EMPTY BAG 1 BAG IV SCH ×7 (00:52→22:18)
[2016-07-25] MEDS: IPRATROPIUM-ALBUTEROL 3 ML NEB INHALATION PRN (02:37)
[2016-07-25 04:45] LABS: Anisocytosis Slight; CH 25.1; CHCM 28.8; HCT 27.7 % (39.0-53.0); HDW 3.89; HGB 8.1 gm/dL (13.0-17.5); Hypochromasia Marked; MCH 25.5 pg (25.0-35.0); MCHC 29.2 g/dL (31.0-37.0); MCV 87.4 fL (80.0-100.0); Mean Platelet Volume 7.8; Poikilocytosis Slight; RBC 3.17 m/uL (4.30-5.90); RDW 17.7 % (11.5-15.5)
[2016-07-25] MEDS ORDERED: FUROSEMIDE 10 MG/ML 4 ML VIAL IV STA (04:59)
[2016-07-25 05:27] LABS: Anion Gap 8 mmol/L; Blood Urea Nitrogen 18 mg/dL (9-20); Calcium 9.3 mg/dL (8.4-10.2); Carbon Dioxide 32 mmol/L (22-30); Chloride 98 mmol/L (98-107); Glucose 68 mg/dL (74-99); Magnesium 1.8 mg/dL (1.6-2.3); Non-African American GFR(MDRD) >60 (>60 ml/min/1.73 sqM); Phosphorous 2.4 mg/dL (2.5-4.5); Sodium 138 mmol/L (137-145)
[2016-07-25 05:32] LABS: ABG Base Excess 10.5 mmol/L; ABG HCO3 33 mmol/L (21-25); ABG PCO2 30 mmHg (35-45); ABG PH 7.64 (7.35-7.45); ABG PO2 69 mmHg (83-108); ABG TCO2 34 mmol/L (19-24)
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
[2016-07-25] MEDS: PANTOPRAZOLE 40 MG TABLET PO SCH (06:56)
[2016-07-25 07:03] LABS: Glucose,Whole Blood 56 mg/dL (75-99)
[2016-07-25] MEDS ORDERED: DEXTROSE 50%-WATER 50 ML SYRINGE IVP ONE (07:05)
[2016-07-25] MEDS ORDERED: DEXTROSE 50%-WATER 50 ML SYRINGE IVP STA (07:06)
[2016-07-25] MEDS: IPRATROPIUM-ALBUTEROL 3 ML NEB INHALATION SCH ×4 (07:22→19:53)
[2016-07-25 07:23] LABS: Glucose,Whole Blood 115 mg/dL (75-99)
--- NOTE | 2016-07-25 07:57 | XR ---
EXAMINATION TYPE: XR chest 1V portable DATE OF EXAM: 07/25/2016 7:14 AM Comparison: 07/24/2016 Clinical History: 66 year-old male tube placement Findings: ET tube tip is just below the level of the thoracic inlet and appears to be withdrawn slightly in the interval. NG tube courses below the diaphragm. The tip is probably located just below the GE junctio n and should be reassessed at follow-up. Right PICC tip at the cavoatrial junction. Heart is mildly enlarged. Diffuse interstitial and patchy airspace opacities persist and have become minimally less consolidated. Small right greater than left pleural effusions with adjacent opacities. Suggestion of a coronary stent. Thoracolumbar fusion hardware. Impression: 1. ET tube tip just beyond the level of the thoracic inlet, 9 cm above the agustin. It may have been w ithdrawn slightly in the interval. Attention on follow-up. If it becomes withdrawn anymore, it may ne ed to be repositioned. 2. Also, the ET tube tip is probably just below the level of the GE junction. Attention on follow-up. Consider advancement. 3. Findings suggest continued CHF with some interval improvement now with interstitial pulmonary missy a. 4. Small right greater than left pleural effusions with adjacent atelectasis and/or consolidation.
[2016-07-25 08:57] LABS: Glucose,Whole Blood 76 mg/dL (75-99)
[2016-07-25] MEDS: CHLORHEXIDINE GLUCONATE 15 ML CUP MUCOUS MEM SCH ×2 (09:00→20:17)
[2016-07-25] MEDS: INSULIN LISPRO (humaLOG) 300 UNIT/3 ML VIAL SQ SCH ×4 (09:00→20:18)
[2016-07-25] MEDS: INSULIN DETEMIR 100 UNIT/ML 10 ML VIAL SQ SCH (09:01)
[2016-07-25] MEDS: ENOXAPARIN 60 MG/0.6 ML SYRINGE SQ SCH (09:01)
[2016-07-25] MEDS: LISINOPRIL 20 MG TAB PO SCH (09:01)
[2016-07-25 10:00] LABS: Glucose,Whole Blood 72 mg/dL (75-99)
[2016-07-25] MEDS: TOBRAMYCIN SULFATE IVPB SCH (10:08)
[2016-07-25] MEDS: SODIUM CHLORIDE 0.9% IVPB SCH (10:08)
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
[2016-07-25 11:57] LABS: Glucose,Whole Blood 67 mg/dL (75-99)
[2016-07-25] MEDS: PROPOFOL 50 ML IV ONE (12:28)
[2016-07-25] MEDS: DAPTOmycin 500 MG in SODIUM CHLORIDE 0.9% 50 ML IV SCH (12:28)
[2016-07-25] MEDS: LEVOFLOXACIN 750 MG TAB PO SCH (12:29)
[2016-07-25 12:33] LABS: Glucose,Whole Blood 85 mg/dL (75-99)
--- NOTE | 2016-07-25 15:16 | XR ---
EXAMINATION TYPE: XR chest 1V portable DATE OF EXAM: 07/25/2016 12:33 PM Comparison: Earlier today Clinical History: 66-year-old male central line placement Findings: Right PICC tip at the cavoatrial junction. Left subclavian CVC tip at the lower SVC. ET tube tip at the level of the medial clavicular heads. Distal aspect of the NG tube is not seen. Cardiomegaly and apparent worsening interstitial and mid and lower lung airspace opacities with small pleural effusions. Impression: 1. Left subclavian CVC tip at the lower SVC. 2. Correlate for CHF with worsening pulmonary edema. 3. Small pleural effusions with adjacent atelectasis and/or consolidation.
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
[2016-07-25 17:01] LABS: Glucose,Whole Blood 75 mg/dL (75-99)
[2016-07-25 17:08] LABS: ABG Base Excess 10.4 mmol/L; ABG HCO3 35 mmol/L (21-25); ABG PCO2 49 mmHg (35-45); ABG PH 7.46 (7.35-7.45); ABG PO2 104 mmHg (83-108); ABG TCO2 36 mmol/L (19-24)
[2016-07-25 19:58] LABS: Glucose,Whole Blood 91 mg/dL (75-99)
[2016-07-25] MEDS: SODIUM CHLORIDE 0.9% 1,000 ML IV SCH (20:18)
[2016-07-25] MEDS: FUROSEMIDE 10 MG/ML 4 ML VIAL IV SCH (20:20)
[2016-07-26 00:05] LABS: Glucose,Whole Blood 97 mg/dL (75-99)
[2016-07-26] MEDS: INSULIN LISPRO (humaLOG) 300 UNIT/3 ML VIAL SQ SCH ×6 (01:10→19:15)
[2016-07-26] MEDS: PROPOFOL 500 MG in EMPTY BAG 1 BAG IV SCH ×9 (01:26→22:53)
[2016-07-26 05:28] LABS: ABG Base Excess 10.7 mmol/L; ABG HCO3 36 mmol/L (21-25); ABG PCO2 58 mmHg (35-45); ABG PH 7.41 (7.35-7.45); ABG PO2 79 mmHg (83-108); ABG TCO2 38 mmol/L (19-24)
[2016-07-26 06:13] LABS: Anisocytosis Slight; CHCM 28.6; HCT 28.5 % (39.0-53.0); HGB 8.4 gm/dL (13.0-17.5); Hypochromasia Marked; MCH 25.9 pg (25.0-35.0); MCHC 29.6 g/dL (31.0-37.0); MCV 87.5 fL (80.0-100.0); Mean Platelet Volume 7.4; Poikilocytosis Slight; RBC 3.25 m/uL (4.30-5.90); RDW 17.5 % (11.5-15.5); WBC 14.5 k/uL (3.8-10.6)
[2016-07-26 06:40] LABS: Anion Gap 9 mmol/L; Blood Urea Nitrogen 21 mg/dL (9-20); Calcium 9.3 mg/dL (8.4-10.2); Carbon Dioxide 36 mmol/L (22-30); Chloride 94 mmol/L (98-107); Glucose 127 mg/dL (74-99); Magnesium 1.7 mg/dL (1.6-2.3); Non-African American GFR(MDRD) >60 (>60 ml/min/1.73 sqM); Phosphorous 4.5 mg/dL (2.5-4.5); Sodium 139 mmol/L (137-145)
[2016-07-26] MEDS ORDERED: Potassium Replacement Protocol 1 EACH MISC MISCELLANE PRN (07:00)
[2016-07-26] MEDS ORDERED: Magnesium Replacement Protocol 1 EACH MISC MISCELLANE PRN (07:04)
[2016-07-26] MEDS: IPRATROPIUM-ALBUTEROL 3 ML NEB INHALATION SCH ×4 (07:37→19:57)
[2016-07-26] MEDS: POTASSIUM CHLORIDE ORAL LIQUID 40 MEQ/30 ML CUP NG-TUBE SCH ×2 (07:53→09:38)
[2016-07-26] MEDS ORDERED: TOBRAMYCIN TROUGH DUE 1 EACH MISC MISCELLANE ONE (08:00)
[2016-07-26] MEDS: MAGNESIUM SULFATE-D5W PMX 1 GM in DEXTROSE/WATER 1 100ML.BAG IVPB SCH ×2 (08:02→09:18)
[2016-07-26] MEDS: PANTOPRAZOLE 40 MG TABLET PO SCH (08:08)
[2016-07-26] MEDS: ENOXAPARIN 60 MG/0.6 ML SYRINGE SQ SCH (08:10)
[2016-07-26] MEDS: CHLORHEXIDINE GLUCONATE 15 ML CUP MUCOUS MEM SCH ×2 (08:10→19:16)
[2016-07-26 08:18] LABS: Glucose,Whole Blood 142 mg/dL (75-99)
--- NOTE | 2016-07-26 08:46 | XR ---
EXAMINATION TYPE: XR chest 1V portable DATE OF EXAM: 07/26/2016 6:22 AM COMPARISON: 07/25/2016 INDICATION: Difficulty breathing TECHNIQUE: Single frontal view of the chest is obtained. FINDINGS: The heart size is normal. The pulmonary vasculature is normal. Scattered mild infiltrates are present bilaterally greater in the lower lung iraheta. Minimal effusion s are not excluded. Endotracheal tube is present with tip above the agustin, stable in position. Nasogastric tube transver ses the thorax the tip in left upper quadrant of the abdomen. PICC line enters on the right with the tip in the right atrium. Left central venous catheter is present with the tip at the superior vena ca va right atrial junction IMPRESSION: 1. Findings suggestive of some mild congestive heart failure. 2. Multiple lines and catheters discussed above.
[2016-07-26] MEDS: SODIUM CHLORIDE 0.9% IVPB SCH (09:20)
[2016-07-26] MEDS: TOBRAMYCIN SULFATE IVPB SCH (09:20)
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
[2016-07-26] MEDS: FUROSEMIDE 10 MG/ML 4 ML VIAL IV SCH ×2 (09:37→20:16)
--- NOTE | 2016-07-26 09:38 | PCN ---
DATE OF PROCEDURE: PROCEDURE DONE: Insertion of a triple lumen catheter. PREOPERATIVE DIAGNOSIS: Respiratory failure. POSTOPERATIVE DIAGNOSIS: Respiratory failure. TRIPLE LUMEN CATHETER PLACEMENT Indication: Hemodynamic monitoring/Intravenous access. A time-out was completed verifying correct patient, procedure, site, positioning, and implant(s) or special equipment if applicable. The patient was placed in a dependent position appropriate for triple lumen catheter placement based on the vein to be cannulated. The patient's left shoulder was prepped and draped in sterile fashion. 1% Lidocaine was used to anesthetize the surrounding skin area. A triple lumen 9F Cordis catheter was introduced into the left subclavian vein using Seldinger technique. The catheter was threaded smoothly over the guide wire and appropriate blood return was obtained. Each lumen of the catheter was evacuated of air and flushed with sterile saline. The catheter was then sutured in place to the skin and a sterile dressing applied. Perfusion to the extremity distal to the point of catheter insertion was checked and found to be adequate. No bedside complications or bleeding.
[2016-07-26 11:21] LABS: Glucose,Whole Blood 165 mg/dL (75-99)
[2016-07-26 11:46] LABS: Glucose,Whole Blood 168 mg/dL (75-99)
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
[2016-07-26] MEDS: LEVOFLOXACIN 750 MG TAB PO SCH (12:27)
[2016-07-26] MEDS: DAPTOmycin 500 MG in SODIUM CHLORIDE 0.9% 50 ML IV SCH (12:30)
[2016-07-26 15:28] LABS: Glucose,Whole Blood 140 mg/dL (75-99)
[2016-07-26 16:26] LABS: Glucose,Whole Blood 136 mg/dL (75-99)
[2016-07-26 19:16] LABS: Glucose,Whole Blood 136 mg/dL (75-99)
[2016-07-26 21:11] LABS: Glucose,Whole Blood 120 mg/dL (75-99)
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
[2016-07-26 23:28] LABS: Magnesium 1.9 mg/dL (1.6-2.3); Potassium 3.2 mmol/L (3.5-5.1)
[2016-07-27 00:17] LABS: Glucose,Whole Blood 183 mg/dL (75-99)
[2016-07-27] MEDS: SODIUM CHLORIDE 0.9% 1,000 ML IV SCH ×2 (01:36→08:28)
[2016-07-27] MEDS ORDERED: Potassium Replacement Protocol 1 EACH MISC MISCELLANE PRN ×2 (01:36→17:19)
[2016-07-27] MEDS: INSULIN LISPRO (humaLOG) 300 UNIT/3 ML VIAL SQ SCH ×6 (01:41→21:07)
[2016-07-27] MEDS: PROPOFOL 500 MG in EMPTY BAG 1 BAG IV SCH ×3 (02:31→06:37)
[2016-07-27] MEDS: POTASSIUM CHLORIDE ORAL LIQUID 40 MEQ/30 ML CUP NG-TUBE SCH (02:48)
[2016-07-27 04:02] LABS: Glucose,Whole Blood 205 mg/dL (75-99)
[2016-07-27 05:43] LABS: Anion Gap 8 mmol/L; Blood Urea Nitrogen 22 mg/dL (9-20); Calcium 8.6 mg/dL (8.4-10.2); Carbon Dioxide 34 mmol/L (22-30); Chloride 98 mmol/L (98-107); Glucose 184 mg/dL (74-99); Non-African American GFR(MDRD) >60 (>60 ml/min/1.73 sqM); Phosphorous 3.6 mg/dL (2.5-4.5); Potassium 4.5 mmol/L (3.5-5.1); Sodium 140 mmol/L (137-145)
[2016-07-27] MEDS: MAGNESIUM SULFATE-D5W PMX 1 GM in DEXTROSE/WATER 1 100ML.BAG IVPB SCH ×2 (05:50→08:25)
[2016-07-27 05:51] LABS: ABG HCO3 34 mmol/L (21-25); ABG PCO2 46 mmHg (35-45); ABG PH 7.48 (7.35-7.45); ABG PO2 71 mmHg (83-108); ABG TCO2 36 mmol/L (19-24)
[2016-07-27 06:45] LABS: Anisocytosis Slight; Basophils # (A) 0.1 k/uL (0-0.2); Basophils % (A) 0 %; CHCM 28.1; Eosinophils # (A) 3.6 k/uL (0-0.7); Eosinophils % (A) 24 %; HCT 28.8 % (39.0-53.0); HDW 3.31; HGB 8.3 gm/dL (13.0-17.5); Hypochromasia Marked; Luc # (Auto) 0.16; Luc % (Auto) 1; Lymphocytes # (A) 1.9 k/uL (1.0-4.8); Lymphocytes % (A) 13 %; MCH 25.6 pg (25.0-35.0); MCHC 28.8 g/dL (31.0-37.0); Mean Platelet Volume 7.2; Monocytes # (A) 0.7 k/uL (0-1.0); Monocytes % (A) 5 %; Neutrophils # (A) 8.6 k/uL (1.3-7.7); Neutrophils % (A) 57 %; RBC 3.24 m/uL (4.30-5.90); WBC (Perox) 15.76
--- NOTE | 2016-07-27 07:05 | XR ---
EXAMINATION TYPE: XR chest 1V portable DATE OF EXAM: 07/27/2016 6:18 AM CLINICAL HISTORY: Difficulty breathing progress study. TECHNIQUE: Single AP portable semiupright view of the chest is obtained. COMPARISON: Chest x-ray from one day earlier FINDINGS: An endotracheal tube, orogastric tube, left-sided subclavian central venous catheter, and right-sided PICC line are all stable in appearance. There is persistent cardiomegaly with central vas cular congestion. There is persistent bibasilar opacity consistent with small bilateral pleural effus ions and associated bibasilar atelectasis and/or infiltrate. Upper lungs are clear without pneumothor ax. Postsurgical change thoracolumbar spine is partially imaged. IMPRESSION: Overall stable findings, suspect CHF exacerbation as there is cardiomegaly with central vascular congestion and small bilateral pleural effusions all redemonstrated. Associated bibasilar a telectasis and/or infiltrate is redemonstrated.
[2016-07-27] MEDS: IPRATROPIUM-ALBUTEROL 3 ML NEB INHALATION SCH ×4 (07:35→20:10)
[2016-07-27 07:56] LABS: Manual Review Performed
[2016-07-27 08:04] LABS: Glucose,Whole Blood 180 mg/dL (75-99)
[2016-07-27] MEDS: PANTOPRAZOLE 40 MG TABLET PO SCH (08:27)
[2016-07-27] MEDS: CHLORHEXIDINE GLUCONATE 15 ML CUP MUCOUS MEM SCH ×2 (08:27→21:07)
[2016-07-27] MEDS: ENOXAPARIN 60 MG/0.6 ML SYRINGE SQ SCH (08:28)
[2016-07-27] MEDS: FUROSEMIDE 10 MG/ML 4 ML VIAL IV SCH (08:30)
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
[2016-07-27] MEDS: FUROSEMIDE 250 MG in SODIUM CHLORIDE 0.9% 225 ML IVP SCH (09:32)
[2016-07-27] MEDS ORDERED: CISATRACURIUM 2 MG/ML 5 ML VIAL IV ONE (10:37)
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
[2016-07-27 12:19] LABS: Glucose,Whole Blood 177 mg/dL (75-99)
[2016-07-27] MEDS: DAPTOmycin 500 MG in SODIUM CHLORIDE 0.9% 50 ML IV SCH (13:02)
[2016-07-27 17:36] LABS: Glucose,Whole Blood 194 mg/dL (75-99)
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
[2016-07-27] MEDS: POTASSIUM CHLORIDE 10 MEQ in WATER FOR INJECTION 1 100ML.BAG IVPB SCH ×2 (17:55→18:50)
[2016-07-27] MEDS ORDERED: LEVOFLOXACIN 750 MG TAB PO SCH (18:00)
[2016-07-27] MEDS: SODIUM CHLORIDE 0.9% IVPB SCH (18:52)
[2016-07-27] MEDS: TOBRAMYCIN SULFATE IVPB SCH (18:52)
[2016-07-27 20:33] LABS: Glucose,Whole Blood 181 mg/dL (75-99)
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
[2016-07-28] MEDS ORDERED: Potassium Replacement Protocol 1 EACH MISC MISCELLANE PRN ×3 (00:42→20:53)
[2016-07-28] MEDS: POTASSIUM CHLORIDE 10 MEQ, LIDOCAINE 2% INJ 10 MG in SODIUM CHLORIDE 0.9% 100 ML IV SCH ×4 (01:09→10:39)
[2016-07-28] MEDS: INSULIN LISPRO (humaLOG) 300 UNIT/3 ML VIAL SQ SCH ×6 (01:10→22:00)
[2016-07-28 01:12] LABS: Glucose,Whole Blood 125 mg/dL (75-99)
[2016-07-28 05:08] LABS: Glucose,Whole Blood 185 mg/dL (75-99)
[2016-07-28 05:49] LABS: Anisocytosis Slight; CH 24.7; CHCM 28.1; HCT 31.7 % (39.0-53.0); HDW 3.32; HGB 9.1 gm/dL (13.0-17.5); Hypochromasia Marked; MCH 25.3 pg (25.0-35.0); MCHC 28.8 g/dL (31.0-37.0); MCV 87.9 fL (80.0-100.0); Mean Platelet Volume 6.9; RBC 3.61 m/uL (4.30-5.90); RDW 18.1 % (11.5-15.5); WBC 16.8 k/uL (3.8-10.6)
[2016-07-28 06:07] LABS: Blood Urea Nitrogen 16 mg/dL (9-20); Chloride 88 mmol/L (98-107); Glucose 168 mg/dL (74-99); Magnesium 2.1 mg/dL (1.6-2.3); Non-African American GFR(MDRD) >60 (>60 ml/min/1.73 sqM); Phosphorous 4.1 mg/dL (2.5-4.5); Potassium 3.6 mmol/L (3.5-5.1); Sodium 143 mmol/L (137-145)
[2016-07-28 06:13] LABS: Anion Gap 14 mmol/L
[2016-07-28 06:38] LABS: Carbon Dioxide 41 mmol/L (22-30)
[2016-07-28] MEDS: IPRATROPIUM-ALBUTEROL 3 ML NEB INHALATION SCH ×4 (07:13→20:12)
--- NOTE | 2016-07-28 07:36 | XR ---
EXAMINATION TYPE: XR chest 1V portable DATE OF EXAM: 07/28/2016 5:54 AM Comparison: 07/27/2016 Clinical History: 66-year-old male Tube placement Findings: Patient extubated in the interval. Right PICC tip in the right atrium. Left subclavian CVC tip at the mid SVC level. Thoracolumbar fusion hardware. Worsening opacity throughout the right hemithorax. Continued interstitial opacities throughout the le ft hemithorax. Retrocardiac opacity and small left pleural effusion also redemonstrated. Impression: 1. Worsening aeration in the right hemithorax probably due to worsening, moderate CHF. 2. Increased moderate right and trace left pleural effusions with adjacent atelectasis and/or consoli dation.
[2016-07-28 08:08] LABS: Glucose,Whole Blood 155 mg/dL (75-99)
[2016-07-28] MEDS: CHLORHEXIDINE GLUCONATE 15 ML CUP MUCOUS MEM SCH (09:09)
[2016-07-28] MEDS: FUROSEMIDE 250 MG in SODIUM CHLORIDE 0.9% 225 ML IVP SCH (09:09)
[2016-07-28] MEDS: SODIUM CHLORIDE 0.9% 1,000 ML IV SCH (09:10)
[2016-07-28] MEDS: PANTOPRAZOLE 40 MG TABLET PO SCH ×2 (09:10→09:14)
[2016-07-28] MEDS: ENOXAPARIN 60 MG/0.6 ML SYRINGE SQ SCH (09:13)
[2016-07-28 11:47] LABS: ABG Base Excess 19.5 mmol/L; ABG HCO3 45 mmol/L (21-25); ABG PCO2 59 mmHg (35-45); ABG PH 7.49 (7.35-7.45); ABG PO2 61 mmHg (83-108); ABG TCO2 47 mmol/L (19-24)
[2016-07-28 12:21] LABS: Glucose,Whole Blood 170 mg/dL (75-99)
[2016-07-28] MEDS: DAPTOmycin 500 MG in SODIUM CHLORIDE 0.9% 50 ML IV SCH (13:34)
[2016-07-28] MEDS ORDERED: ACETAMINOPHEN IV (For NPO) 1,000 MG in EMPTY BAG 1 BAG IVPB ONE (14:00)
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
--- NOTE | 2016-07-28 16:15 | US ---
EXAMINATION TYPE: US chest DATE OF EXAM: 07/28/2016 1:35 PM COMPARISON: Radiograph same date CLINICAL HISTORY: 66-year-old male piero fluid level. TECHNIQUE: Multiple sonographic images of the posterior lower hemithoraces for assessment of pleural fluid. FINDINGS: CROSS CUT SAW OPERATOR NOTES: Technically difficult study, nurse and aid had difficult time sitting up patient EXAM MEASUREMENTS: Right Pleural Effusion fluid pocket: 2.0 cm Right skin surface to fluid distance: 3.8 cm Left Pleural Effusion fluid pocket: 2.3 cm Left skin surface to fluid distance: 4.7 cm Right side not marked for possible thoracentesis outside the dept. Left side not marked for possible thoracentesis outside the dept. Pulmonologists are able to review the images in the patient?s EMR. IMPRESSIONS: There are only small bilateral pleural effusions. Markings were not performed. This suggests that mos t of the radiographic opacity corresponds to consolidation and atelectasis.
[2016-07-28 17:43] LABS: Glucose,Whole Blood 155 mg/dL (75-99)
[2016-07-28] MEDS: POTASSIUM CHLORIDE 20 MEQ in WATER FOR INJECTION 1 100ML.BAG IVPB SCH ×2 (22:00→23:52)
[2016-07-28 22:01] LABS: Glucose,Whole Blood 160 mg/dL (75-99)
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
[2016-07-29 01:57] LABS: Glucose,Whole Blood 177 mg/dL (75-99)
[2016-07-29] MEDS: INSULIN LISPRO (humaLOG) 300 UNIT/3 ML VIAL SQ SCH ×7 (01:57→23:57)
[2016-07-29] MEDS: POTASSIUM CHLORIDE 20 MEQ in WATER FOR INJECTION 1 100ML.BAG IVPB SCH (01:58)
[2016-07-29] MEDS ORDERED: ACETAMINOPHEN IV (For NPO) 1,000 MG in EMPTY BAG 1 BAG IVPB ONE ×2 (02:01→17:19)
[2016-07-29 04:06] LABS: Glucose,Whole Blood 150 mg/dL (75-99)
[2016-07-29 05:11] LABS: Anisocytosis Slight; CH 24.5; CHCM 27.7; HCT 32.2 % (39.0-53.0); HDW 3.24; HGB 9.1 gm/dL (13.0-17.5); Hypochromasia Marked; MCH 25.1 pg (25.0-35.0); MCHC 28.4 g/dL (31.0-37.0); MCV 88.5 fL (80.0-100.0); Mean Platelet Volume 6.9; RBC 3.64 m/uL (4.30-5.90); WBC 17.9 k/uL (3.8-10.6)
[2016-07-29 05:24] LABS: Blood Urea Nitrogen 18 mg/dL (9-20); Calcium 8.8 mg/dL (8.4-10.2); Chloride 89 mmol/L (98-107); Glucose 145 mg/dL (74-99); Non-African American GFR(MDRD) >60 (>60 ml/min/1.73 sqM); Phosphorous 3.1 mg/dL (2.5-4.5); Potassium 3.8 mmol/L (3.5-5.1); Sodium 144 mmol/L (137-145)
[2016-07-29 05:30] LABS: Anion Gap 11 mmol/L
[2016-07-29 05:39] LABS: Carbon Dioxide 44 mmol/L (22-30)
[2016-07-29] MEDS ORDERED: Potassium Replacement Protocol 1 EACH MISC MISCELLANE PRN (05:44)
[2016-07-29] MEDS: TOBRAMYCIN SULFATE IVPB SCH (05:53)
[2016-07-29] MEDS: SODIUM CHLORIDE 0.9% IVPB SCH (05:53)
[2016-07-29] MEDS: POTASSIUM CHLORIDE 10 MEQ in WATER FOR INJECTION 1 100ML.BAG IVPB SCH ×2 (06:21→09:18)
[2016-07-29] MEDS: IPRATROPIUM-ALBUTEROL 3 ML NEB INHALATION SCH ×4 (08:06→19:57)
--- NOTE | 2016-07-29 08:45 | XR ---
EXAMINATION TYPE: XR chest 1V portable DATE OF EXAM: 07/29/2016 6:40 AM COMPARISON: 07/28/2016 INDICATION: Previous abnormal chest TECHNIQUE: Single frontal view of the chest is obtained. FINDINGS: The heart size is normal. The pulmonary vasculature is slightly prominent. There is diffuse increased lung markings present bilaterally. These are improving PICC line enters on the right with the tip in the right atrium. Left central venous catheter is prese nt with tip in superior vena cava region. Small right pleural effusion is likely present. Postsurgical changes are at the thoracolumbar junction. EKG leads overlie the chest. IMPRESSION: 1. Clinical correlation recommended for pneumonia versus atypical pulmonary edema. Findings are impro ving from comparison. 2. Small right pleural effusion. 3. Continued follow-up is recommended.
[2016-07-29] MEDS: ENOXAPARIN 60 MG/0.6 ML SYRINGE SQ SCH (09:18)
[2016-07-29] MEDS: PANTOPRAZOLE 40 MG TABLET PO SCH (09:18)
[2016-07-29] MEDS: SODIUM CHLORIDE 0.9% 1,000 ML IV SCH (09:25)
[2016-07-29 09:26] LABS: Glucose,Whole Blood 146 mg/dL (75-99)
--- NOTE | 2016-07-29 11:29 | XR ---
EXAMINATION TYPE: XR chest 1V portable DATE OF EXAM: 07/29/2016 11:19 AM COMPARISON: 07/29/2016 INDICATION: Nasogastric tube placement, respiratory failure and anemia TECHNIQUE: Single frontal view of the chest is obtained. FINDINGS: The heart size is normal. The pulmonary vasculature is normal. Diffuse increased lung markings are through the right upper lung field. Catheter is present on the ri ght with the tip in the proximal right atrium. Left-sided catheter is present with tip in the distal superior vena cava region. No pneumothorax is evident. IMPRESSION: 1. Increased lung markings right upper lobe. Correlate for atypical pulmonary edema. 2. Lines and catheters discussed above.
[2016-07-29 12:20] LABS: Glucose,Whole Blood 149 mg/dL (75-99)
[2016-07-29] MEDS: NOREPINEPHRIN 16 MG-0.9%NS PMX 16 MG/250 ML ML IV SCH (12:25)
[2016-07-29] MEDS: DAPTOmycin 500 MG in SODIUM CHLORIDE 0.9% 50 ML IV SCH (13:21)
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
[2016-07-29 16:25] LABS: Glucose,Whole Blood 153 mg/dL (75-99)
[2016-07-29 20:05] LABS: Glucose,Whole Blood 159 mg/dL (75-99)
[2016-07-29] MEDS: ACETAMINOPHEN TAB 325 MG TAB PO PRN (23:08)
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
[2016-07-29 23:56] LABS: Glucose,Whole Blood 177 mg/dL (75-99)
[2016-07-30 04:39] LABS: Anisocytosis Slight; CH 24.3; CHCM 26.8; HCT 34.5 % (39.0-53.0); HDW 3.35; HGB 9.6 gm/dL (13.0-17.5); Hypochromasia Marked; MCH 25.2 pg (25.0-35.0); MCHC 27.8 g/dL (31.0-37.0); MCV 90.8 fL (80.0-100.0); Mean Platelet Volume 7.1; RDW 17.5 % (11.5-15.5); WBC 18.7 k/uL (3.8-10.6)
[2016-07-30 04:53] LABS: Blood Urea Nitrogen 26 mg/dL (9-20); Calcium 9.2 mg/dL (8.4-10.2); Chloride 92 mmol/L (98-107); Glucose 189 mg/dL (74-99); Magnesium 2.2 mg/dL (1.6-2.3); Non-African American GFR(MDRD) >60 (>60 ml/min/1.73 sqM); Phosphorous 4.3 mg/dL (2.5-4.5); Potassium 3.3 mmol/L (3.5-5.1); Sodium 147 mmol/L (137-145)
[2016-07-30 05:02] LABS: Anion Gap 13 mmol/L
[2016-07-30 05:03] LABS: Glucose,Whole Blood 181 mg/dL (75-99)
[2016-07-30] MEDS: INSULIN LISPRO (humaLOG) 300 UNIT/3 ML VIAL SQ SCH ×6 (05:03→23:48)
[2016-07-30 05:26] LABS: Carbon Dioxide 42 mmol/L (22-30)
[2016-07-30] MEDS ORDERED: Potassium Replacement Protocol 1 EACH MISC MISCELLANE PRN (06:09)
[2016-07-30 06:51] LABS: Glucose,Whole Blood 191 mg/dL (75-99)
[2016-07-30] MEDS: PROPOFOL 500 MG in EMPTY BAG 1 BAG IV SCH ×10 (07:10→22:52)
--- NOTE | 2016-07-30 07:16 | XR ---
EXAMINATION TYPE: XR chest 1V portable DATE OF EXAM: 07/30/2016 7:09 AM Comparison: 07/29/2016 Clinical History: 66-year-old male Tube placement Findings: ET tube appears satisfactory. NG tube courses below the diaphragm. Right PICC tip in the region of th e cavoatrial junction. Left subclavian CVC tip at the mid to lower SVC. Rotated exam. Progressive development of bilateral patchy and confluent airspace opacity. Increasing hazy density at the right base as well. The heart is borderline to mildly enlarged. Impression: Worsening bilateral diffuse airspace disease and right pleural effusion.
[2016-07-30] MEDS: POTASSIUM CHLORIDE ORAL LIQUID 40 MEQ/30 ML CUP NG-TUBE SCH ×2 (07:31→09:53)
[2016-07-30 08:06] LABS: ABG Base Excess 14.3 mmol/L; ABG HCO3 42 mmol/L (21-25); ABG PCO2 107 mmHg (35-45); ABG PH 7.22 (7.35-7.45); ABG PO2 99 mmHg (83-108); ABG TCO2 46 mmol/L (19-24)
[2016-07-30 08:53] LABS: Glucose,Whole Blood 198 mg/dL (75-99)
[2016-07-30] MEDS: PANTOPRAZOLE 40 MG TABLET PO SCH (08:59)
[2016-07-30] MEDS: SODIUM CHLORIDE 0.9% 1,000 ML IV SCH (09:01)
[2016-07-30] MEDS ORDERED: IV FLUID CONTINUATION 1,000 ML IV ONE (09:10)
[2016-07-30] MEDS ORDERED: CISATRACURIUM 2 MG/ML 5 ML VIAL IV ONE (09:14)
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
[2016-07-30] MEDS ORDERED: SODIUM CHLORIDE 0.9% 1,000 ML IV ONE (09:50)
--- NOTE | 2016-07-30 09:52 | P.PCN ---
Date of Procedure: 07/30/16 Preoperative Diagnosis: Bilateral pneumonia Postoperative Diagnosis: Bilateral pneumonia and extensive mucus plugging Procedure(s) Performed: Implants: Anesthesia: MAC Surgeon: Clarissa Graff Hand Salter #1: Joan Askew Estimated Blood Loss (ml): 0 Pathology: other Condition: stable Disposition: ICU Indications for Procedure: Operative Findings: This patient was already intubated on a mechanical ventilator. The patient was placed on 100% FiO2. The patient was in the prevent running at 35 mics per KG per minute. The patient was also given a dose of Nimbex for paralysis. Following that an adapter was attached and orotracheal tube and the flexible bronchoscope was advanced with orotracheal tube while the patient being mechanically ventilated. As the flexible bronchoscope was advanced, the orotracheal tube was inspected and it was full of rest or secretions that were quite thick and purulent. Herpetic it was suctioning was done. Bronchoscope was advanced further and the tip of the aortic and she was seen around 2 cm above the agustin. The agustin was sharp in the midline. The bilateral mainstem bronchi were full of purulent respiratory secretions and mucous plugs. These were creamy beige in color and occasionally bloody. The secretions were irrigated with saline and subsequently further suctioning was done. As the 60s was taken out, the bronchoscope working chamber was being plugs repeatedly and I had to insert and remove the bronchoscope to flushed my working chamber frequently. Addendum of the procedure, the majority of the restless complications were suctioned out with other major complications. Adequate airway patency was achieved. The aspirated rest or secretions were sent for microbial cultures. The patient remained hemodynamics is stable without any hypotension oxygen saturation throughout the procedure. The bronchoscope was removed and the procedure was terminated. The visualized airways included the distal trachea, bilateral mainstem bronchi, right upper lobe bronchus, right middle lobe bronchus, right lower lobe bronchus, left upper lobe bronchus and left lower lobe bronchus. The majority of the purulent mucous plugs were located in the bilateral mainstem bronchi location and the distal trachea and some occluding the orotracheal tube. No endobronchial tumors or lesions. No polyps. No foreign body. Description of Procedure:
[2016-07-30] MEDS: SODIUM CHLORIDE 0.9% 1,000 ML IV ONE ×2 (09:55→10:30)
[2016-07-30] MEDS: ENOXAPARIN 60 MG/0.6 ML SYRINGE SQ SCH (10:29)
[2016-07-30] MEDS: CHLORHEXIDINE GLUCONATE 15 ML CUP MUCOUS MEM SCH ×2 (10:29→20:40)
[2016-07-30] MEDS: IPRATROPIUM-ALBUTEROL 3 ML NEB INHALATION SCH ×4 (11:53→19:32)
[2016-07-30 12:11] LABS: Glucose,Whole Blood 220 mg/dL (75-99)
[2016-07-30 12:29] LABS: ABG PCO2 63 mmHg (35-45); ABG PH 7.36 (7.35-7.45); ABG PO2 70 mmHg (83-108)
[2016-07-30 12:30] LABS: ABG Base Excess 9.1 mmol/L; ABG HCO3 35 mmol/L (21-25); ABG TCO2 37 mmol/L (19-24)
[2016-07-30] MEDS: DAPTOmycin 500 MG in SODIUM CHLORIDE 0.9% 50 ML IV SCH (12:34)
[2016-07-30 12:39] LABS: RBC, Body Fluid 1050 /uL
[2016-07-30] MEDS: INSULIN GLARGINE 100 UNIT/ML 10 ML VIAL SQ SCH ×2 (14:53→20:35)
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
[2016-07-30] MEDS: MEROPENEM 1 GM in SODIUM CHLORIDE 0.9% 100 ML IVPB SCH ×2 (16:58→23:54)
[2016-07-30] MEDS ORDERED: TOBRAMYCIN TROUGH DUE 1 EACH MISC MISCELLANE ONE (17:00)
[2016-07-30 17:04] LABS: Glucose,Whole Blood 215 mg/dL (75-99)
[2016-07-30] MEDS: SODIUM CHLORIDE 0.9% IVPB SCH (17:43)
[2016-07-30] MEDS: TOBRAMYCIN SULFATE IVPB SCH (17:43)
[2016-07-30] MEDS ORDERED: POTASSIUM CHLORIDE ORAL LIQUID 40 MEQ/30 ML CUP NG-TUBE SCH (18:00)
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
[2016-07-30] MEDS ORDERED: TOBRAMYCIN PEAK DUE 1 EACH MISC MISCELLANE ONE (19:30)
[2016-07-30 20:07] LABS: Glucose,Whole Blood 259 mg/dL (75-99)
[2016-07-30 22:28] LABS: Glucose,Whole Blood 253 mg/dL (75-99)
[2016-07-30] MEDS: ACETAMINOPHEN TAB 325 MG TAB PO PRN (22:50)
[2016-07-30 23:50] LABS: Glucose,Whole Blood 255 mg/dL (75-99)
[2016-07-31] MEDS: PROPOFOL 500 MG in EMPTY BAG 1 BAG IV SCH ×11 (02:20→23:08)
[2016-07-31] MEDS: INSULIN LISPRO (humaLOG) 300 UNIT/3 ML VIAL SQ SCH ×5 (03:53→21:00)
[2016-07-31 03:56] LABS: Glucose,Whole Blood 215 mg/dL (75-99)
[2016-07-31 05:33] LABS: Anisocytosis Slight; CH 24.3; CHCM 26.4; HCT 30.7 % (39.0-53.0); HDW 3.34; HGB 8.2 gm/dL (13.0-17.5); Hypochromasia Marked; MCH 24.8 pg (25.0-35.0); MCHC 26.8 g/dL (31.0-37.0); MCV 92.4 fL (80.0-100.0); Mean Platelet Volume 6.8; RBC 3.32 m/uL (4.30-5.90); RDW 17.8 % (11.5-15.5); WBC 13.8 k/uL (3.8-10.6)
[2016-07-31 05:50] LABS: ABG Base Excess 11.7 mmol/L; ABG HCO3 37 mmol/L (21-25); ABG PCO2 59 mmHg (35-45); ABG PH 7.41 (7.35-7.45); ABG PO2 72 mmHg (83-108); ABG TCO2 39 mmol/L (19-24)
[2016-07-31 06:32] LABS: Anion Gap 7 mmol/L; Blood Urea Nitrogen 27 mg/dL (9-20); Calcium 8.9 mg/dL (8.4-10.2); Carbon Dioxide 38 mmol/L (22-30); Chloride 102 mmol/L (98-107); Glucose 213 mg/dL (74-99); Non-African American GFR(MDRD) >60 (>60 ml/min/1.73 sqM); Phosphorous 2.2 mg/dL (2.5-4.5); Potassium 3.5 mmol/L (3.5-5.1); Sodium 147 mmol/L (137-145)
--- NOTE | 2016-07-31 07:29 | XR ---
EXAMINATION TYPE: XR chest 1V portable DATE OF EXAM: 07/31/2016 6:53 AM COMPARISON: 07/30/2016 INDICATION: previous abnormal chest TECHNIQUE: Single frontal view of the chest is obtained. FINDINGS: The heart size is normal. The pulmonary vasculature is prominent. Bilateral pleural effusions are present. The infiltrate to the right lung has improved. Endotracheal tube is present but. A left central venous catheter is in tip in the superior vena cava region. A right-sided PICC line has its tip located within the right atrium region. Nasogastric tube transverses the thorax. IMPRESSION: 1. Small bilateral pleural effusions, greater on the right. These are stable from prior study. 2. Improving right perihilar infiltrate. 3. Prominent pulmonary vascular markings. Correlate for volume overload. 4. Lines and catheters discussed above.
[2016-07-31] MEDS: IPRATROPIUM-ALBUTEROL 3 ML NEB INHALATION SCH ×4 (07:30→20:20)
[2016-07-31] MEDS: MEROPENEM 1 GM in SODIUM CHLORIDE 0.9% 100 ML IVPB SCH (07:50)
[2016-07-31] MEDS: ENOXAPARIN 60 MG/0.6 ML SYRINGE SQ SCH (08:09)
[2016-07-31] MEDS: CHLORHEXIDINE GLUCONATE 15 ML CUP MUCOUS MEM SCH ×2 (08:09→21:02)
[2016-07-31 08:17] LABS: Glucose,Whole Blood 242 mg/dL (75-99)
[2016-07-31] MEDS: PANTOPRAZOLE 40 MG TABLET PO SCH (08:17)
[2016-07-31] MEDS: SODIUM CHLORIDE 0.9% 1,000 ML IV SCH (08:17)
[2016-07-31] MEDS: POTASSIUM CHLORIDE ORAL LIQUID 40 MEQ/30 ML CUP NG-TUBE SCH ×2 (10:02→14:23)
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
[2016-07-31 12:07] LABS: Glucose,Whole Blood 248 mg/dL (75-99)
[2016-07-31] MEDS ORDERED: INSULIN LISPRO (humaLOG) 300 UNIT/3 ML VIAL SQ ONE (13:17)
[2016-07-31] MEDS: DAPTOmycin 500 MG in SODIUM CHLORIDE 0.9% 50 ML IV SCH (14:26)
[2016-07-31 17:02] LABS: Glucose,Whole Blood 201 mg/dL (75-99)
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
[2016-07-31 19:52] LABS: Glucose,Whole Blood 159 mg/dL (75-99)
[2016-07-31] MEDS: INSULIN GLARGINE 100 UNIT/ML 10 ML VIAL SQ SCH (21:00)
[2016-07-31 23:53] LABS: Glucose,Whole Blood 205 mg/dL (75-99)
[2016-08-01] MEDS: INSULIN LISPRO (humaLOG) 300 UNIT/3 ML VIAL SQ SCH ×6 (00:02→20:00)
[2016-08-01] MEDS: PROPOFOL 500 MG in EMPTY BAG 1 BAG IV SCH ×9 (01:01→21:55)
[2016-08-01 04:09] LABS: Glucose,Whole Blood 204 mg/dL (75-99)
[2016-08-01] MEDS: TOBRAMYCIN SULFATE IVPB SCH (05:42)
[2016-08-01] MEDS: SODIUM CHLORIDE 0.9% IVPB SCH (05:42)
[2016-08-01 05:47] LABS: ABG PH 7.37 (7.35-7.45)
[2016-08-01 05:48] LABS: ABG Base Excess 1.9 mmol/L; ABG HCO3 27 mmol/L (21-25); ABG PCO2 48 mmHg (35-45); ABG PO2 94 mmHg (83-108); ABG TCO2 28 mmol/L (19-24)
[2016-08-01 05:49] LABS: Anisocytosis Slight; CH 24.3; CHCM 26.3; HCT 30.9 % (39.0-53.0); HGB 8.3 gm/dL (13.0-17.5); Hypochromasia Marked; MCH 24.7 pg (25.0-35.0); MCHC 26.7 g/dL (31.0-37.0); MCV 92.4 fL (80.0-100.0); Mean Platelet Volume 7.1; Poikilocytosis Slight; RBC 3.34 m/uL (4.30-5.90); WBC 12.9 k/uL (3.8-10.6)
[2016-08-01 06:19] LABS: Anion Gap 9 mmol/L; Blood Urea Nitrogen 29 mg/dL (9-20); Calcium 9.2 mg/dL (8.4-10.2); Carbon Dioxide 31 mmol/L (22-30); Chloride 105 mmol/L (98-107); Glucose 222 mg/dL (74-99); Magnesium 1.9 mg/dL (1.6-2.3); Non-African American GFR(MDRD) >60 (>60 ml/min/1.73 sqM); Phosphorous 2.5 mg/dL (2.5-4.5); Potassium 3.7 mmol/L (3.5-5.1); Sodium 145 mmol/L (137-145)
[2016-08-01] MEDS ORDERED: Potassium Replacement Protocol 1 EACH MISC MISCELLANE PRN (07:24)
[2016-08-01] MEDS: IPRATROPIUM-ALBUTEROL 3 ML NEB INHALATION SCH ×4 (07:25→19:53)
--- NOTE | 2016-08-01 07:29 | XR ---
EXAMINATION TYPE: XR chest 1V portable DATE OF EXAM: 08/01/2016 7:03 AM HISTORY: Tube placement. REFERENCE: Previous study dated 07/31/2016. FINDINGS: The patient is ET tube and NG tube remain in place, unchanged in appearance. There is been previous interpedicular fusion of the thoracolumbar junction. The heart is enlarged. There are bilateral effusions. There is vascular congestion and mild pulmonary edema. The overall appearance has not changed significantly from previous. IMPRESSION: NO SIGNIFICANT INTERVAL CHANGE IN APPEARANCE OF THE CHEST.
[2016-08-01] MEDS ORDERED: POTASSIUM CHLORIDE ORAL LIQUID 40 MEQ/30 ML CUP NG-TUBE SCH (08:00)
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
[2016-08-01] MEDS: PANTOPRAZOLE 40 MG TABLET PO SCH (09:19)
[2016-08-01] MEDS: SODIUM CHLORIDE 0.9% 1,000 ML IV SCH (09:19)
[2016-08-01] MEDS: CHLORHEXIDINE GLUCONATE 15 ML CUP MUCOUS MEM SCH ×2 (09:22→19:53)
[2016-08-01] MEDS: ENOXAPARIN 60 MG/0.6 ML SYRINGE SQ SCH (09:22)
[2016-08-01] MEDS ORDERED: ALTEPLASE 2 MG VIAL (CATHFLO) IV STA (10:15)
[2016-08-01 11:25] LABS: Glucose,Whole Blood 223 mg/dL (75-99)
[2016-08-01 11:46] LABS: Glucose,Whole Blood 217 mg/dL (75-99)
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
[2016-08-01] MEDS: DAPTOmycin 500 MG in SODIUM CHLORIDE 0.9% 50 ML IV SCH (13:40)
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
[2016-08-01 17:48] LABS: Glucose,Whole Blood 232 mg/dL (75-99)
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
[2016-08-01 19:58] LABS: Glucose,Whole Blood 226 mg/dL (75-99)
[2016-08-01] MEDS: INSULIN GLARGINE 100 UNIT/ML 10 ML VIAL SQ SCH (20:01)
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
[2016-08-02] MEDS: INSULIN LISPRO (humaLOG) 300 UNIT/3 ML VIAL SQ SCH ×7 (00:31→23:27)
[2016-08-02 00:32] LABS: Glucose,Whole Blood 222 mg/dL (75-99)
[2016-08-02] MEDS: PROPOFOL 500 MG in EMPTY BAG 1 BAG IV SCH ×13 (02:04→23:31)
[2016-08-02 05:12] LABS: Glucose,Whole Blood 168 mg/dL (75-99)
[2016-08-02] MEDS: PANTOPRAZOLE 40 MG TABLET PO SCH (05:54)
[2016-08-02 06:07] LABS: Anisocytosis Slight; CH 24.4; CHCM 27.2; HCT 27.2 % (39.0-53.0); HDW 3.66; HGB 7.8 gm/dL (13.0-17.5); Hypochromasia Marked; MCH 25.9 pg (25.0-35.0); MCHC 28.8 g/dL (31.0-37.0); MCV 89.9 fL (80.0-100.0); Mean Platelet Volume 6.9; Poikilocytosis Slight; RBC 3.03 m/uL (4.30-5.90); WBC 10.1 k/uL (3.8-10.6)
[2016-08-02 06:37] LABS: Anion Gap 8 mmol/L; Blood Urea Nitrogen 30 mg/dL (9-20); Carbon Dioxide 30 mmol/L (22-30); Chloride 106 mmol/L (98-107); Glucose 165 mg/dL (74-99); Magnesium 1.8 mg/dL (1.6-2.3); Non-African American GFR(MDRD) >60 (>60 ml/min/1.73 sqM); Potassium 3.8 mmol/L (3.5-5.1); Sodium 144 mmol/L (137-145)
[2016-08-02] MEDS: NOREPINEPHRIN 16 MG-0.9%NS PMX 16 MG/250 ML ML IV SCH (07:00)
[2016-08-02] MEDS: IPRATROPIUM-ALBUTEROL 3 ML NEB INHALATION SCH ×4 (07:16→19:01)
[2016-08-02] MEDS ORDERED: Magnesium Replacement Protocol 1 EACH MISC MISCELLANE PRN (07:48)
[2016-08-02] MEDS ORDERED: Potassium Replacement Protocol 1 EACH MISC MISCELLANE PRN (07:49)
[2016-08-02 08:01] LABS: Glucose,Whole Blood 178 mg/dL (75-99)
[2016-08-02] MEDS: CHLORHEXIDINE GLUCONATE 15 ML CUP MUCOUS MEM SCH ×2 (08:20→20:56)
[2016-08-02] MEDS: MAGNESIUM SULFATE-D5W PMX 1 GM in DEXTROSE/WATER 1 100ML.BAG IVPB SCH ×2 (08:34→11:33)
[2016-08-02 08:39] LABS: ABG Base Excess 2.8 mmol/L; ABG HCO3 28 mmol/L (21-25); ABG PCO2 48 mmHg (35-45); ABG PH 7.38 (7.35-7.45); ABG PO2 114 mmHg (83-108); ABG TCO2 29 mmol/L (19-24)
[2016-08-02] MEDS: POTASSIUM CHLORIDE 10 MEQ in WATER FOR INJECTION 1 100ML.BAG IVPB SCH ×2 (10:16→11:32)
[2016-08-02] MEDS: SODIUM CHLORIDE 0.9% 1,000 ML IV SCH (10:17)
--- NOTE | 2016-08-02 10:34 | XR ---
EXAMINATION TYPE: XR chest 1V portable DATE OF EXAM: 08/02/2016 6:39 AM COMPARISON: Prior chest x-ray July HISTORY: Intubated TECHNIQUE: Single frontal view of the chest is obtained. FINDINGS: Endotracheal tube, NG tube, left subclavian central venous catheter, right-sided PICC line all are noted and are overlying appropriate positions. There is no evident pneumothorax. Bibasilar d ensity persists, the heart is enlarged. Interstitium is increased. Question subluxation of the should ers bilaterally. IMPRESSION: Correlate for possible effusions and associated atelectasis or pneumonia or edema, there may be underlying heart failure, pneumonia. Follow-up recommended. Additional findings above.
[2016-08-02] MEDS ORDERED: PHENYLEPHRINE-0.9% NACL SYG 1 MG/10 ML SYRINGE ONE (11:58)
[2016-08-02] MEDS ORDERED: MIDAZOLAM 2 MG/2 ML VIAL ONE (11:58)
[2016-08-02] MEDS ORDERED: WATER FOR INJECTION, STERILE 10 ML VIAL IV ONE (11:58)
[2016-08-02] MEDS ORDERED: ROCURONIUM BROMIDE 10 MG/ML 10 ML VIAL IV ONE (11:58)
[2016-08-02] MEDS ORDERED: VECURONIUM 10 MG VIAL IV ONE (11:58)
[2016-08-02 13:24] LABS: Glucose,Whole Blood 137 mg/dL (75-99)
[2016-08-02] MEDS: DAPTOmycin 500 MG in SODIUM CHLORIDE 0.9% 50 ML IV SCH (13:25)
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
[2016-08-02 16:08] LABS: Glucose,Whole Blood 140 mg/dL (75-99)
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
[2016-08-02] MEDS: SODIUM CHLORIDE 0.9% IVPB SCH (19:01)
[2016-08-02] MEDS: TOBRAMYCIN SULFATE IVPB SCH (19:01)
[2016-08-02 20:19] LABS: Glucose,Whole Blood 139 mg/dL (75-99)
[2016-08-02] MEDS: INSULIN GLARGINE 100 UNIT/ML 10 ML VIAL SQ SCH (20:57)
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
[2016-08-02 23:30] LABS: Glucose,Whole Blood 126 mg/dL (75-99)
[2016-08-03] MEDS: PROPOFOL 500 MG in EMPTY BAG 1 BAG IV SCH ×6 (00:22→09:00)
[2016-08-03] MEDS: INSULIN LISPRO (humaLOG) 300 UNIT/3 ML VIAL SQ SCH ×5 (03:28→21:31)
[2016-08-03 03:29] LABS: Glucose,Whole Blood 133 mg/dL (75-99)
[2016-08-03 04:41] LABS: Anisocytosis Slight; CHCM 26.9; HCT 28.4 % (39.0-53.0); HDW 3.61; Hypochromasia Marked; MCH 25.2 pg (25.0-35.0); MCHC 28.2 g/dL (31.0-37.0); MCV 89.5 fL (80.0-100.0); Mean Platelet Volume 7.1; Poikilocytosis Slight; RBC 3.18 m/uL (4.30-5.90); WBC 9.8 k/uL (3.8-10.6)
[2016-08-03 04:58] LABS: ALT 44 U/L (21-72); AST 19 U/L (17-59); Alkaline Phosphatase 73 U/L (38-126); Anion Gap 7 mmol/L; Blood Urea Nitrogen 27 mg/dL (9-20); Calcium 9.3 mg/dL (8.4-10.2); Carbon Dioxide 29 mmol/L (22-30); Chloride 107 mmol/L (98-107); Glucose 118 mg/dL (74-99); Magnesium 2.1 mg/dL (1.6-2.3); Non-African American GFR(MDRD) >60 (>60 ml/min/1.73 sqM); Phosphorous 4.1 mg/dL (2.5-4.5); Potassium 3.8 mmol/L (3.5-5.1); Sodium 143 mmol/L (137-145); Total Bilirubin 0.4 mg/dL (0.2-1.3); Total Protein 5.3 g/dL (6.3-8.2)
[2016-08-03] MEDS ORDERED: Potassium Replacement Protocol 1 EACH MISC MISCELLANE PRN (05:00)
[2016-08-03] MEDS ORDERED: POTASSIUM CHLORIDE ORAL LIQUID 40 MEQ/30 ML CUP NG-TUBE SCH (06:00)
--- NOTE | 2016-08-03 07:07 | XR ---
EXAMINATION TYPE: XR chest 1V portable DATE OF EXAM: 08/03/2016 7:03 AM COMPARISON: 08/02/2016 HISTORY: Tracheostomy tube placement FINDINGS: There are bilateral pleural effusions with cardiomegaly and bibasilar infiltrate. There is a diffuse interstitial pattern. Tracheostomy tube is seen with the tip of the tube overlying the mid trachea. Approximately 3 cm abov e agustin. Left-sided PICC line noted. Postsurgical changes overlying the vertebral column. IMPRESSION: 1. Diffuse airspace disease correlate for ARDS, pneumonia or pulmonary edema.
[2016-08-03 07:40] LABS: Glucose,Whole Blood 117 mg/dL (75-99)
[2016-08-03] MEDS: IPRATROPIUM-ALBUTEROL 3 ML NEB INHALATION SCH ×4 (07:52→19:34)
[2016-08-03 08:50] LABS: ABG Base Excess 2.5 mmol/L; ABG HCO3 28 mmol/L (21-25); ABG Oxygen Saturation 97.6 % (94-97); ABG PCO2 51 mmHg (35-45); ABG PH 7.35 (7.35-7.45); ABG PO2 103 mmHg (83-108); ABG TCO2 29 mmol/L (19-24)
[2016-08-03] MEDS: SODIUM CHLORIDE 0.9% 1,000 ML IV SCH (09:16)
[2016-08-03] MEDS: CHLORHEXIDINE GLUCONATE 15 ML CUP MUCOUS MEM SCH ×2 (09:17→21:33)
[2016-08-03] MEDS: PANTOPRAZOLE 40 MG TABLET PO SCH (09:17)
--- NOTE | 2016-08-03 09:20 | P.PN ---
<Fallon Carrera - Last Filed: 08/03/16 09:17> Subjective Principal diagnosis: Acute hypoxemic and hypercapnic respiratory failure requiring mechanical ventilation. POD #1 placement of tracheostomy and PEG tube. Patient currently sedated on mechanical ventilation. Objective - Vital Signs Vital signs: Vital Signs Temp 98 F 08/03/16 04:00 Pulse 76 08/03/16 08:13 Resp 25 H 08/03/16 07:00 BP 153/63 08/03/16 07:00 Pulse Ox 98 08/03/16 07:00 Intake & Output 08/02/16 08/03/16 08/03/16 18:59 06:59 18:59 Intake Total 1072.158 675.016 Output Total 205 1735 Balance 867.158 -1059.984 Weight 172.6 kg Intake: IV 370 360 0.9 220 260 DAPTOmycin 500 mg In 50 Sodium Chloride 0.9% 50 ml @ 100 mls/hr IV Q24H [facility] Rx#:[id number] cefTAZidime 2 gm In 100 100 Sodium Chloride 0.9% 100 ml @ 100 mls/hr IVPB Q8HR [facility] Rx#:[id number] Intake, IV Titration 702.158 315.016 Amount Magnesium Sulfate-D5w Pmx 100 1 gm In Dextrose/Water 1 100ml.bag @ 100 mls/hr IVPB Q1H [facility] Rx#: [id number] Norepinephrin 16 mg-0.9% 1.406 Ns Pmx 16 mg In 250 ml @ Titrate IV .Q0M [facility] Rx#: [id number] Propofol 500 mg In Empty 260.752 315.016 Bag 1 bag @ Titrate IV . Q0M [facility] Rx#:[id number] Sodium Chloride 0.9% 1, 340 000 ml @ 20 mls/hr IV . Q24H [facility] Rx#:[id number] Tube Feeding 0 Output: Urine 195 485 Stool 1250 Estimated Blood Loss 10 Other: Voiding Method Indwelling Catheter Indwelling Catheter ABP, PAP, CO, CI - Last Documented Arterial Blood Pressure 147/49 - Constitutional General appearance: Present: morbidly obese, no acute distress - Respiratory Details: Lungs sounds coarse bilaterally. Respirations even, nonlabored on mechanical ventilation. Current ventilator settings FiO2 35%, tidal volume 450, respiratory rate 16, PEEP 5. Patient has a Bivona size 9 tracheostomy. - Cardiovascular Details: S1, S2 present. Regular rate and rhythm, normal sinus rhythm on telemetry. - Gastrointestinal Gastrointestinal Comment(s): Abdomen soft, nontender, nondistended, morbidly obese. PEG tube present, colostomy present. - Genitourinary Genitourinary Comment(s): Wolff present draining clear, yellow urine. - Neurologic Neurologic Comment(s): Currently sedated on mechanical ventilation. Does withdraw to painful stimuli. - Allied health notes Allied health notes reviewed: nursing - Labs CBC & Chem 7: 08/03/16 04:26 08/03/16 04:26 Labs: Abnormal Lab Results - Last 24 Hours (Table) 07/30/16 08/02/16 08/02/16 Range/Units 09:30 13:21 16:06 RBC (4.30-5.90) m/uL Hgb (13.0-17.5) gm/dL Hct (39.0-53.0) % MCHC (31.0-37.0) g/dL RDW (11.5-15.5) % Plt Count (150-450) k/uL ABG pCO2 (35-45) mmHg ABG HCO3 (21-25) mmol/L ABG Total CO2 (19-24) mmol/L ABG O2 Saturation (94-97) % BUN (9-20) mg/dL Creatinine (0.66-1.25) mg/dL Glucose (74-99) mg/dL POC Glucose (mg/dL) 137 H 140 H (75-99) mg/dL Total Protein (6.3-8.2) g/dL Albumin (3.5-5.0) g/dL Viral Test See Below H 08/02/16 08/02/16 08/03/16 Range/Units 20:17 23:27 03:26 RBC (4.30-5.90) m/uL Hgb (13.0-17.5) gm/dL Hct (39.0-53.0) % MCHC (31.0-37.0) g/dL RDW (11.5-15.5) % Plt Count (150-450) k/uL ABG pCO2 (35-45) mmHg ABG HCO3 (21-25) mmol/L ABG Total CO2 (19-24) mmol/L ABG O2 Saturation (94-97) % BUN (9-20) mg/dL Creatinine (0.66-1.25) mg/dL Glucose (74-99) mg/dL POC Glucose (mg/dL) 139 H 126 H 133 H (75-99) mg/dL Total Protein (6.3-8.2) g/dL Albumin (3.5-5.0) g/dL Viral Test 08/03/16 08/03/16 08/03/16 Range/Units 04:26 04:26 07:38 RBC 3.18 L (4.30-5.90) m/uL Hgb 8.0 L (13.0-17.5) gm/dL Hct 28.4 L (39.0-53.0) % MCHC 28.2 L (31.0-37.0) g/dL RDW 18.0 H (11.5-15.5) % Plt Count 521 H (150-450) k/uL ABG pCO2 (35-45) mmHg ABG HCO3 (21-25) mmol/L ABG Total CO2 (19-24) mmol/L ABG O2 Saturation (94-97) % BUN 27 H (9-20) mg/dL Creatinine 0.62 L (0.66-1.25) mg/dL Glucose 118 H (74-99) mg/dL POC Glucose (mg/dL) 117 H (75-99) mg/dL Total Protein 5.3 L (6.3-8.2) g/dL Albumin 2.2 L (3.5-5.0) g/dL Viral Test 08/03/16 Range/Units 08:35 RBC (4.30-5.90) m/uL Hgb (13.0-17.5) gm/dL Hct (39.0-53.0) % MCHC (31.0-37.0) g/dL RDW (11.5-15.5) % Plt Count (150-450) k/uL ABG pCO2 51 H (35-45) mmHg ABG HCO3 28 H (21-25) mmol/L ABG Total CO2 29 H (19-24) mmol/L ABG O2 Saturation 97.6 H (94-97) % BUN (9-20) mg/dL Creatinine (0.66-1.25) mg/dL Glucose (74-99) mg/dL POC Glucose (mg/dL) (75-99) mg/dL Total Protein (6.3-8.2) g/dL Albumin (3.5-5.0) g/dL Viral Test Microbiology - Last 24 Hours (Table) 07/30/16 07:00 Gram Stain - Final Sputum Sputum Culture - Preliminary Gram Neg Bacilli 07/30/16 09:30 Gram Stain - Final Bronchoalviolar Lavage - Right Bronchial Washings Culture - Preliminary Gram Neg Bacilli - Imaging and Cardiology Chest x-ray: image reviewed Assessment and Plan (1) Respiratory failure Status: Acute (2) Chronic ulcer of buttock Status: Acute (3) Toxic metabolic encephalopathy Status: Acute Plan: The patient was seen and examined. Chart/diagnostics were reviewed. Mechanical ventilation to be managed by pulmonary. May begin tube feedings through PEG. Medical management per primary/pulmonology. We will follow patient as needed. Time with Patient: Greater than 30 <Fili Denis - Last Filed: 08/03/16 10:25> Objective - Vital Signs Vital signs: Vital Signs Temp 97.9 F 08/03/16 08:00 Pulse 89 08/03/16 10:00 Resp 18 08/03/16 10:00 BP 155/63 08/03/16 10:00 Pulse Ox 97 08/03/16 10:00 Intake & Output 08/02/16 08/03/16 08/03/16 18:59 06:59 18:59 Intake Total 1072.158 675.016 214.08 Output Total 205 1735 160 Balance 867.158 -1059.984 54.08 Weight 172.6 kg Intake: IV 370 360 160 0.9 220 260 60 DAPTOmycin 500 mg In 50 Sodium Chloride 0.9% 50 ml @ 100 mls/hr IV Q24H [facility] Rx#:[id number] cefTAZidime 2 gm In 100 100 100 Sodium Chloride 0.9% 100 ml @ 100 mls/hr IVPB Q8HR [facility] Rx#:[id number] Intake, IV Titration 702.158 315.016 54.08 Amount Magnesium Sulfate-D5w Pmx 100 1 gm In Dextrose/Water 1 100ml.bag @ 100 mls/hr IVPB Q1H [facility] Rx#: [id number] Norepinephrin 16 mg-0.9% 1.406 Ns Pmx 16 mg In 250 ml @ Titrate IV .Q0M [facility] Rx#: [id number] Propofol 500 mg In Empty 260.752 315.016 54.08 Bag 1 bag @ Titrate IV . Q0M [facility] Rx#:[id number] Sodium Chloride 0.9% 1, 340 000 ml @ 20 mls/hr IV . Q24H [facility] Rx#:[id number] Tube Feeding 0 Output: Urine 195 485 160 Stool 1250 Estimated Blood Loss 10 Other: Voiding Method Indwelling Catheter Indwelling Catheter ABP, PAP, CO, CI - Last Documented Arterial Blood Pressure 147/49 - Labs CBC & Chem 7: 08/03/16 04:26 08/03/16 04:26 Labs: Abnormal Lab Results - Last 24 Hours (Table) 07/30/16 08/02/16 08/02/16 Range/Units 09:30 13:21 16:06 RBC (4.30-5.90) m/uL Hgb (13.0-17.5) gm/dL Hct (39.0-53.0) % MCHC (31.0-37.0) g/dL RDW (11.5-15.5) % Plt Count (150-450) k/uL ABG pCO2 (35-45) mmHg ABG HCO3 (21-25) mmol/L ABG Total CO2 (19-24) mmol/L ABG O2 Saturation (94-97) % BUN (9-20) mg/dL Creatinine (0.66-1.25) mg/dL Glucose (74-99) mg/dL POC Glucose (mg/dL) 137 H 140 H (75-99) mg/dL Total Protein (6.3-8.2) g/dL Albumin (3.5-5.0) g/dL Viral Test See Below H 08/02/16 08/02/16 08/03/16 Range/Units 20:17 23:27 03:26 RBC (4.30-5.90) m/uL Hgb (13.0-17.5) gm/dL Hct (39.0-53.0) % MCHC (31.0-37.0) g/dL RDW (11.5-15.5) % Plt Count (150-450) k/uL ABG pCO2 (35-45) mmHg ABG HCO3 (21-25) mmol/L ABG Total CO2 (19-24) mmol/L ABG O2 Saturation (94-97) % BUN (9-20) mg/dL Creatinine (0.66-1.25) mg/dL Glucose (74-99) mg/dL POC Glucose (mg/dL) 139 H 126 H 133 H (75-99) mg/dL Total Protein (6.3-8.2) g/dL Albumin (3.5-5.0) g/dL Viral Test 08/03/16 08/03/16 08/03/16 Range/Units 04:26 04:26 07:38 RBC 3.18 L (4.30-5.90) m/uL Hgb 8.0 L (13.0-17.5) gm/dL Hct 28.4 L (39.0-53.0) % MCHC 28.2 L (31.0-37.0) g/dL RDW 18.0 H (11.5-15.5) % Plt Count 521 H (150-450) k/uL ABG pCO2 (35-45) mmHg ABG HCO3 (21-25) mmol/L ABG Total CO2 (19-24) mmol/L ABG O2 Saturation (94-97) % BUN 27 H (9-20) mg/dL Creatinine 0.62 L (0.66-1.25) mg/dL Glucose 118 H (74-99) mg/dL POC Glucose (mg/dL) 117 H (75-99) mg/dL Total Protein 5.3 L (6.3-8.2) g/dL Albumin 2.2 L (3.5-5.0) g/dL Viral Test 08/03/16 Range/Units 08:35 RBC (4.30-5.90) m/uL Hgb (13.0-17.5) gm/dL Hct (39.0-53.0) % MCHC (31.0-37.0) g/dL RDW (11.5-15.5) % Plt Count (150-450) k/uL ABG pCO2 51 H (35-45) mmHg ABG HCO3 28 H (21-25) mmol/L ABG Total CO2 29 H (19-24) mmol/L ABG O2 Saturation 97.6 H (94-97) % BUN (9-20) mg/dL Creatinine (0.66-1.25) mg/dL Glucose (74-99) mg/dL POC Glucose (mg/dL) (75-99) mg/dL Total Protein (6.3-8.2) g/dL Albumin (3.5-5.0) g/dL Viral Test Microbiology - Last 24 Hours (Table) 07/30/16 07:00 Gram Stain - Final Sputum Sputum Culture - Preliminary Gram Neg Bacilli 07/30/16 09:30 Gram Stain - Final Bronchoalviolar Lavage - Right Bronchial Washings Culture - Preliminary Gram Neg Bacilli Assessment and Plan Plan: [facility] notes reviewed and accepted. We'll follow as needed.
[2016-08-03] MEDS: ACETAMINOPHEN TAB 325 MG TAB PO PRN ×2 (09:30→17:56)
--- NOTE | 2016-08-03 10:28 | P.PCN ---
Date of Procedure: 08/02/16 Preoperative Diagnosis: Respiratory failure and inability to wean from vent Postoperative Diagnosis: Same Procedure(s) Performed: Tracheostomy Implants: Anesthesia: KIERSTENA Surgeon: Fili Denis Estimated Blood Loss (ml): 10 Pathology: none sent Condition: stable Disposition: no change Indications for Procedure: Patient is unable to be weaned from the vent. Patient requests all aggressive measures to be done. Operative Findings: The patient had some scarring from previous tracheostomy. The previous trach appear to be rather high in the trachea. Description of Procedure: With the patient supine position, under benefit of general anesthesia, we prepped and draped in standard fashion. We made a transverse incision about 2 fingerbreadths above the sternal notch. We incised superficial fascias transversely's. Once we reached the area of the trachea we then converted our incision to longitudinal. We exposed the area of the trachea through about the second through fourth tracheal rings. We established excellent hemostasis in all areas. We then longitudinally opened the trachea through about the second through fourth tracheal rings. We ritika the endotracheal tube up above this opening. A #9 Bivona foam cuff tube was then placed through the opening and settled in the trachea below. Cuff was allowed to expand. Hemostasis was excellent. We closed the corners of the incision with nylon. The same sutures were used to secure the flanges of the trach tube. We had easily ventilated through the trach tube. The patient tolerated the procedure well. We went directly to upper endoscopy for PEG tube placement
--- NOTE | 2016-08-03 10:41 | P.PCN ---
Date of Procedure: 08/02/16 Preoperative Diagnosis: Inability to swallow secondary to vent dependency Postoperative Diagnosis: Same Procedure(s) Performed: Insertion of percutaneous endoscopic gastrostomy tube Implants: Anesthesia: GETA Surgeon: Fili Denis Estimated Blood Loss (ml): 5 Pathology: none sent Condition: stable Disposition: ICU Indications for Procedure: Patient requires nutrition and remains dependent on the ventilator Operative Findings: No abnormalities seen Description of Procedure: With the patient supine position, under benefit of general anesthesia, we already prepped the anterior abdominal wall. We placed the upper endoscope under direct visualization. We traversed the esophagus and into the stomach. It was insufflated. We then isolated an area on the anterior abdominal wall corresponding to the anterior wall of stomach. A quarter inch transverse incision was placed in this area. Through this incision we placed a needle and trocar. The trochars removed and a guidewire placed through the needle into the stomach. The guidewire was grasped with a snare and pulled out through the mouth. The needle was removed. We then tracked over this guidewire the PEG tube in a modified Seldinger technique. When the plastic portion exited the anterior abdominal wall we grasp it and by traction ritika the PEG tube into position. We followed the mushroom tip down with the scope until it abutted the gastric mucosa. All possible air was removed. The scope was removed. Adapters were placed on the PEG tube and it was sterilely dressed. The patient tolerated the procedure well and was then taken to intensive care in stable condition.
[2016-08-03] MEDS: FUROSEMIDE 10 MG/ML 4 ML VIAL IV SCH ×2 (11:02→21:33)
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
[2016-08-03] MEDS: DAPTOmycin 500 MG in SODIUM CHLORIDE 0.9% 50 ML IV SCH (15:25)
[2016-08-03 15:36] LABS: Glucose,Whole Blood 131 mg/dL (75-99)
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
[2016-08-03 20:12] LABS: Glucose,Whole Blood 173 mg/dL (75-99)
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
[2016-08-03] MEDS: INSULIN GLARGINE 100 UNIT/ML 10 ML VIAL SQ SCH (22:17)
[2016-08-04 00:17] LABS: Glucose,Whole Blood 180 mg/dL (75-99)
[2016-08-04] MEDS: INSULIN LISPRO (humaLOG) 300 UNIT/3 ML VIAL SQ SCH ×5 (00:18→16:11)
[2016-08-04 04:13] LABS: Glucose,Whole Blood 168 mg/dL (75-99)
[2016-08-04 04:47] LABS: Anisocytosis Slight; CH 24.3; CHCM 27.5; HCT 28.8 % (39.0-53.0); HDW 3.64; HGB 8.3 gm/dL (13.0-17.5); Hypochromasia Marked; MCH 25.4 pg (25.0-35.0); MCHC 28.7 g/dL (31.0-37.0); MCV 88.5 fL (80.0-100.0); Mean Platelet Volume 7.1; Poikilocytosis Slight; RBC 3.26 m/uL (4.30-5.90); RDW 18.6 % (11.5-15.5); WBC 9.9 k/uL (3.8-10.6)
[2016-08-04] MEDS ORDERED: TOBRAMYCIN TROUGH DUE 1 EACH MISC MISCELLANE ONE (05:00)
[2016-08-04 05:02] LABS: ALT 37 U/L (21-72); AST 14 U/L (17-59); Alkaline Phosphatase 74 U/L (38-126); Anion Gap 8 mmol/L; Blood Urea Nitrogen 24 mg/dL (9-20); Calcium 9.2 mg/dL (8.4-10.2); Carbon Dioxide 30 mmol/L (22-30); Chloride 103 mmol/L (98-107); Glucose 157 mg/dL (74-99); Non-African American GFR(MDRD) >60 (>60 ml/min/1.73 sqM); Phosphorous 4.2 mg/dL (2.5-4.5); Potassium 3.8 mmol/L (3.5-5.1); Sodium 141 mmol/L (137-145); Total Bilirubin 0.3 mg/dL (0.2-1.3); Total Protein 5.3 g/dL (6.3-8.2)
[2016-08-04] MEDS: SODIUM CHLORIDE 0.9% IVPB SCH (06:49)
[2016-08-04] MEDS: TOBRAMYCIN SULFATE IVPB SCH (06:49)
[2016-08-04] MEDS ORDERED: POTASSIUM CHLORIDE ORAL LIQUID 40 MEQ/30 ML CUP NG-TUBE SCH (07:00)
--- NOTE | 2016-08-04 07:26 | XR ---
EXAMINATION TYPE: XR chest 1V portable DATE OF EXAM: 08/04/2016 6:40 AM COMPARISON: NONE INDICATION: Difficulty breathing TECHNIQUE: Single frontal view of the chest is obtained. FINDINGS: The heart size is normal. The pulmonary vasculature is normal. Some minimal infiltrate may be at the left diaphragm. Small left pleural effusion may be present Tracheostomy tube is in the midline. A central venous catheter enters on the left with the tip in the superior vena cava region. A PICC line enters on the right with the tip in the right atrium. IMPRESSION: 1. Minimal infiltrate at the right base. Correlate for atelectasis. 2. Small left pleural effusion. 3. Lines and catheters discussed above.
[2016-08-04] MEDS ORDERED: TOBRAMYCIN PEAK DUE 1 EACH MISC MISCELLANE ONE (07:30)
[2016-08-04] MEDS: IPRATROPIUM-ALBUTEROL 3 ML NEB INHALATION SCH ×2 (07:32→11:53)
[2016-08-04] MEDS: PANTOPRAZOLE 40 MG TABLET PO SCH (08:53)
[2016-08-04] MEDS: SODIUM CHLORIDE 0.9% 1,000 ML IV SCH (08:54)
[2016-08-04] MEDS: FUROSEMIDE 10 MG/ML 4 ML VIAL IV SCH (08:54)
[2016-08-04] MEDS: CHLORHEXIDINE GLUCONATE 15 ML CUP MUCOUS MEM SCH (08:54)
[2016-08-04 09:03] LABS: Glucose,Whole Blood 182 mg/dL (75-99)
[2016-08-04 10:18] VITALS: BMI 53.5
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
[2016-08-04 11:56] LABS: Glucose,Whole Blood 201 mg/dL (75-99)
[2016-08-04] MEDS: DAPTOmycin 500 MG in SODIUM CHLORIDE 0.9% 50 ML IV SCH (13:29)
[2016-08-04 14:09] VITALS: BP 130/61
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
[2016-08-04 15:08] VITALS: PULSE 103; RESP 25; TEMP 98.9
[2016-08-04 15:11] LABS: Glucose,Whole Blood 205 mg/dL (75-99)
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
== END 2016-08-04 17:48 | DRG 4 ==
LOC: EC 08:57 → 6ICU 12:01 → 6SEL 07-23 17:14 → 6ICU 07-24 16:21
PROVIDERS: ADMIT Internal Medicine; ATTEND Internal Medicine
PROC: 5A1955Z Respiratory Ventilation, Greater than 96 Consecutive Hours (ICD-10-PCS; 2016-07-16)
PROC: 0BH17EZ Insertion of Endotracheal Airway into Trachea, Via Natural or Artificial Opening (ICD-10-PCS; 2016-07-16)
PROC: 30233N1 Transfusion of Nonautologous Red Blood Cells into Peripheral Vein, Percutaneous Approach (ICD-10-PCS; 2016-07-16)
PROC: 0DH67UZ Insertion of Feeding Device into Stomach, Via Natural or Artificial Opening (ICD-10-PCS; 2016-07-16)
PROC: 3E0G76Z Introduction of Nutritional Substance into Upper GI, Via Natural or Artificial Opening (ICD-10-PCS; 2016-07-16)
PROC: 03HY32Z Insertion of Monitoring Device into Upper Artery, Percutaneous Approach (ICD-10-PCS; 2016-07-17)
PROC: 05H633Z Insertion of Infusion Device into Left Subclavian Vein, Percutaneous Approach (ICD-10-PCS; 2016-07-25)
PROC: 0B978ZX Drainage of Left Main Bronchus, Via Natural or Artificial Opening Endoscopic, Diagnostic (ICD-10-PCS; 2016-07-30)
PROC: 0B938ZX Drainage of Right Main Bronchus, Via Natural or Artificial Opening Endoscopic, Diagnostic (ICD-10-PCS; 2016-07-30)
PROC: 0BJ08ZZ Inspection of Tracheobronchial Tree, Via Natural or Artificial Opening Endoscopic (ICD-10-PCS; 2016-07-30)
PROC: 0DH63UZ Insertion of Feeding Device into Stomach, Percutaneous Approach (ICD-10-PCS; 2016-08-02)
PROC: 3E0G76Z Introduction of Nutritional Substance into Upper GI, Via Natural or Artificial Opening (ICD-10-PCS; 2016-08-02)
PROC: 0B110F4 Bypass Trachea to Cutaneous with Tracheostomy Device, Open Approach (ICD-10-PCS; principal; 2016-08-03)
DX: A41.52 Sepsis due to Pseudomonas (principal); R65.21 Severe sepsis with septic shock; I50.33 Acute on chronic diastolic (congestive) heart failure; G92 Toxic encephalopathy; L89.154 Pressure ulcer of sacral region, stage 4; J15.1 Pneumonia due to Pseudomonas; J96.21 Acute and chronic respiratory failure with hypoxia; E87.0 Hyperosmolality and hypernatremia; E87.3 Alkalosis; J96.22 Acute and chronic respiratory failure with hypercapnia; L89.323 Pressure ulcer of left buttock, stage 3; L89.313 Pressure ulcer of right buttock, stage 3; D62 Acute posthemorrhagic anemia; Z99.11 Dependence on respirator [ventilator] status; Z68.43 Body mass index [BMI] 50.0-59.9, adult; J44.0 Chronic obstructive pulmonary disease with (acute) lower respiratory infection; E66.2 Morbid (severe) obesity with alveolar hypoventilation; G82.22 Paraplegia, incomplete; T83.518A Infection and inflammatory reaction due to other urinary catheter, initial encounter; B37.49 Other urogenital candidiasis; E11.622 Type 2 diabetes mellitus with other skin ulcer; I11.0 Hypertensive heart disease with heart failure; B96.5 Pseudomonas (aeruginosa) (mallei) (pseudomallei) as the cause of diseases classified elsewhere; T17.990A Other foreign object in respiratory tract, part unspecified in causing asphyxiation, initial encounter; M62.81 Muscle weakness (generalized); T40.2X5A Adverse effect of other opioids, initial encounter; T42.4X5A Adverse effect of benzodiazepines, initial encounter; N50.89 Other specified disorders of the male genital organs; I95.9 Hypotension, unspecified; M19.90 Unspecified osteoarthritis, unspecified site; I87.8 Other specified disorders of veins; F31.9 Bipolar disorder, unspecified; H57.02 Anisocoria; F25.9 Schizoaffective disorder, unspecified; Z16.21 Resistance to vancomycin; Z87.440 Personal history of urinary (tract) infections; Z79.899 Other long term (current) drug therapy; Z79.4 Long term (current) use of insulin; Z79.82 Long term (current) use of aspirin; Z93.3 Colostomy status; Z71.3 Dietary counseling and surveillance; Z88.0 Allergy status to penicillin; Z88.8 Allergy status to other drugs, medicaments and biological substances; Z87.891 Personal history of nicotine dependence; Z90.49 Acquired absence of other specified parts of digestive tract; Z86.19 Personal history of other infectious and parasitic diseases; Z79.2 Long term (current) use of antibiotics; Z79.01 Long term (current) use of anticoagulants; Z79.51 Long term (current) use of inhaled steroids; Z16.12 Extended spectrum beta lactamase (ESBL) resistance; Z96.0 Presence of urogenital implants; Z95.5 Presence of coronary angioplasty implant and graft; Z91.19 Patient's noncompliance with other medical treatment and regimen; Z74.01 Bed confinement status; Z16.19 Resistance to other specified beta lactam antibiotics; Z16.23 Resistance to quinolones and fluoroquinolones; Z16.24 Resistance to multiple antibiotics; Z93.1 Gastrostomy status; V89.2XXS Person injured in unspecified motor-vehicle accident, traffic, sequela; Y84.6 Urinary catheterization as the cause of abnormal reaction of the patient, or of later complication, without mention of misadventure at the time of the procedure; Y95 Nosocomial condition
CPT/HCPCS: 31500; 31624; 36415; 36600; 43246; 70450; 71010; 76604; 80048; 80053; 80200; 80306; 81001; 82272; 82550; 82553; 82805; 83036; 83605; 83735; 83880; 84100; 84132; 84484; 85025; 85027; 85610; 85730; 86850; 86900; 86901; 86920; 87040; 87070; 87077; 87086; 87102; 87116; 87186; 87205; 87206; 87252; 87324; 87496; 87498; 87502; 87529; 87798; 88108; 88305; 89050; 93005; 94002; 94003; 94640; 94660; 94760; 94762; 96365; 96366; 96368; 96375; 96376; 99152; 99291